=== PATIENT | female | born 1935 | race Caucasian/White ===

== ENCOUNTER → 2020-10-17 15:09 | Outpatient (CLI) | payer MEDICARE, SELFPAY ==
[2019-08-09 10:27] VITALS: BMI 38.4
--- NOTE | 2020-10-17 15:44 | MRI_ITS ---
STUDY: MRI BRAIN WITH AND WITHOUT CONTRAST REASON FOR EXAM: Female, 85 years old. DIPLOPIA TECHNIQUE: Standardized multiplanar fat and water weighted pulse sequences were obtained. IV 17CC DOTAREM was administered for the contrast portion of the examination. COMPARISON: None. FINDINGS: Brain parenchyma is normal with mild expected age-related white matter gliotic change. Orbital contents are normal. Suprasellar cistern is clear. Sella turcica has an empty appearance with a normal gland flattened along the floor of the sella, a finding of limited clinical significance on the current exam and without associated findings. Prepontine cistern is clear. MRI/Brain W/WO Contrast IMPRESSION: 1. Normal brain. 2. Normal orbits. Electronically Signed: Taylor Pak MD at 19:45 EDT Tel , Service support ,
[2020-10-17 16:00] LABS: CREATININE FINGERSTICK < 0.6 mg/dL (0.55-1.02); EGFR FINGERSTICK > 60.0000 mL/min (>60)
== END ==
PROVIDERS: PCP Nurse Practitioner Primary Care; Referring Provider Ophthalmology; Visit Provider Ophthalmology
DX: H53.2 Diplopia (principal)
CPT/HCPCS: 70553; A9575

== ENCOUNTER 2021-07-04 09:09 | Outpatient (CLI) | payer MEDICARE, SELFPAY ==
--- NOTE | 2021-07-04 09:12 | NM_ITS ---
CLINICAL: 85-year-old female with reported history of painful apparent bilateral knee arthroplasties. LIMITED 99m Tc MDP THREE PHASE BONE SCINTIGRAPHY COMPARISON: None available FINDINGS: Following the intravenous administration of 27.0 mCi of 99m Tc MDP, three-phase bone acquisitions of the knee articulations reveal: 1. The flow and immediate static blood pool acquisitions demonstrate relatively symmetric-normal arterial phase distribution of the radiopharmaceutical. Venous hyperemia is demonstrated in the medial-lateral tibial and femoral components of the symptomatic bilateral knee prostheses. 2. Delayed images depict persistent increased tracer uptake noted in the medial-lateral femoral and tibial components of the painful right and left knee arthroplasties corresponding to the blood pool changes. 3. Facilitated uptake is noted in the patellofemoral compartments of both knees. 4. The remaining limited skeletal structures are scintigraphically unremarkable. NM/Bone Scan Three Phase IMPRESSION: 1. The increase in radiopharmaceutical concentration identified in the femoral and tibial components of the painful bilateral knee prostheses is consistent with a high likelihood of loosening in the setting of operative intervention > 2 years prior to the current presentation. (Lynne et al, Radiology 161:509, 1986 Palestro et al, Applied Radiology 35: 11, 2006). If an infectious etiology is a diagnostic consideration, correlation with labeled leukocyte imaging is recommended. 2. 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 Electronically Signed: Gigi Richardson DO at 8:02 EDT ,
== END 2021-07-04 23:59 | disposition home or self-care (01) ==
LOC: NM 09:11
PROVIDERS: PCP Nurse Practitioner Primary Care; Referring Provider Specialist; Visit Provider Specialist
DX: Z96.653 Presence of artificial knee joint, bilateral (principal)
CPT/HCPCS: 78315; A9503

== ENCOUNTER → 2024-11-23 | Outpatient (CLI) | payer MEDICARE, SELFPAY ==
--- NOTE | 2024-11-23 14:13 | ST.MBS ---
Modified Barium Swallow Patient Information Study Date: 11/23/24 Study Time: 13:00 Direct Billable Minutes: 120 Total Minutes procedure & reportin Diagnosis: Vomiting R11.10; Esophageal dysmotility K22.4 Referring Physician: Liz Coronado Reason for Referral: Pt presented to [facility] to establish care for management of swallowing difficulty, esophageal dysmotility, and regurgitation of food. ?History of last EGD with Dr. Saldana, done on 06.13.2018. 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 Random tissue biopsies taken. Pathology demonstrated squamous esophageal mucosa without significant microscopic pathology.? Patient reported increased difficulty w/ chicken (white meat) and bun. Pt was recommended for omeprazole, MBSS, and EGD. Pt and daughter, Danielle, provided additional details regarding swallowing difficulty. Pt reports vomiting solids, undigested. If using liquid wash, she feels the liquids ?sit on top? of the foods, and they are vomited, as well. Swallowing difficulty occurs every few days. Pt has never choked, but feels fearful of choking. Pt avoids eating chicken, pulled pork, and bread. 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 Hx of PNA >10 years ago. Pt follows w/ Dr. Delaney for CLL (annually per pt). Medical History: PMH: Hypogammaglobulinemia, HTN, DM, CLL, Esophageal dysmotility, Regurgitation of food ? See EMR for full PMH. Current Diet Ordered: Soft solids / Thin liquids Dentition: WNL and Natural Teeth Mental Status: WNL Respiratory Status: Oxygenating on Room Air Penetration-Aspiration Scale Penetration-Aspiration Scale: OBJECTIVE ASSESSMENT OF SWALLOW FUNCTION (QUANTITATIVE ? PER TRIAL): PENETRATION / ASPIRATION SCALE (LIND): 1 = does not enter airway 2 = enters airway/above vocal folds/ejected 3 = enters airway/above vocal folds/not ejected 4 = enters airway/contacts vocal folds/ejected 5 = enters airway/contacts vocal folds/not ejected 6 = enters airway/below vocal folds/ejected 7 = enters airway/below vocal folds/not ejected despite effort 8 = enters airway/below vocal folds/no effort VIDEOFLOROSCOPIC SCALE SCORE (LIND): Grade I = aspiration of material that has penetrated into the laryngeal vestibule, intact cough reflex Grade II = aspiration < 10 % of the bolus, intact cough reflex Grade III = aspiration of < 10 % of the bolus, reduced cough reflex or aspiration of > 10 % of the bolus, intact cough reflex Grade IV = aspiration of > 10 % of the bolus, reduced cough reflex Penetration-Aspiration Scale Score Thin Liquid via teaspoon: Result: 1= does not enter airway Thin Liquid via teaspoon Trial 2: Result: 1= does not enter airway Thin Liquid via large single sip: cup: Result: 1= does not enter airway Thin Liquid via sequential sips: cup: Result: 7= enters airways/below vocal folds/not ejected despite effort Comment: Esophageal screen - Trial mostly cleared, minimal barium in lower esophagus. [place] Thick Liquid via large single sip: cup: Result: 1= does not enter airway Pudding via teaspoon: Result: 1= does not enter airway Comment: Esophageal screen - Retention in the middle and lower esophagus w/ lower esophagus appearing very narrow. Thin Liquid via single sip: straw: Result: 1= does not enter airway 1/2 Cookie: Result: 1= does not enter airway Comment: Cued pt for cough and re-swallow to clear trace residues remaining in the laryngeal vestibule and on the vocal folds from the sequential thin cup trial. Thin Liquid via single sip: straw Trial 2: Result: 2= enter airway/above vocal folds/ejected Thin Liquid via single sip: straw Effortful swallow: Result: 1= does not enter airway Oral Phase Labial Seal: No Labial Escape Tongue Control During Bolus Hold: Posterior escape of less than half of bolus Bolus Preparation/Mastication: Timely and efficient chewing and mashing Bolus Transport/Lingual Motion: Delayed initiation of tongue motion Oral Residue: Residue collection on oral structures Pharyngeal Phase Initiation of Pharyngeal Swallow: Bolus head in pyriforms (vocal folds w/ sequential thin) Soft Palate Elevation: Trace column of contrast/air between soft palate and pharyngeal wall Laryngeal Elevation: Partial superior movement thyroid cart/partial apprx aryt-epig petiole Anterior Hyoid Excursion: Partial anterior movement Epiglottic Movement: Complete inversion Laryngeal Vestibule Closure at Height of Swallow: Incomplete; narrow column of air/contrast in laryngeal vestibule Pharyngeal Stripping Wave: Present - diminished Pharyngoesophageal Segment Opening: Parital distension and partial duration; parital obstruction of flow (trace retention of pudding in the UES) Tongue Base Retraction: Narrow column of contrast between tongue base & post. pharyngeal wall Pharyngeal Residue: Collection of residue within or on pharyngeal structures Esophageal Phase Esophageal Clearance: Esophageal retention w/ retrograde flow below pharyngoesophageal seg. Diagnosis/Impression Diagnosis: Esophageal dysphagia R13.14; Mild-moderate oropharyngeal dysphagia R13.12 MBS Impressions: The oral phase is primarily marked by... -Decreased bolus control noted w/ posterior loss of >1/2 of sequential sips of thin liquids to the pyriform sinuses. The pharyngeal phase is primarily marked by... -Delayed swallow onset. -Decreased airway closure due to decreased laryngeal elevation and anterior hyoid excursion resulting in aspiration of thin liquids via cup w/ delayed, reflexive cough. -Mildly decreased TB retraction and pharyngeal stripping wave w/ trace-mild pharyngeal residues. The esophageal phase is primarily marked by... -Retention of pudding in the middle and lower esophagus w/ lower esophagus appearing very narrow. Liquid wash did not fully clear barium. Continued retention of barium in the middle and lower esophagus w/ retrograde flow. -Retention of cookie in the middle and lower esophagus. Liquid wash resulted in retrograde flow to the upper esophagus. After second liquid wash, retention in the middle and lower esophagus. Recommendations Diet: Soft and Bite Sized Textures and Thin Liquids Compensatory Strategies: Small Bites, Small Sips (Sips 1 at a time, Hard swallows), Slow Rate, Alternate bites/solids and sips/liquids (1-2 sips after each bite) and Sitting upright (During and 60min after meals) Recommend Repeat Modified Barium Swallow: TBD Need for Skilled Speech Therapy Services: Yes Comment: -Train the patient in use of strategies to decrease risk for aspiration and reflux aspiration. -Ongoing assessment of diet tolerance of recommended textures. Trial easy to chew and regular textures after EGD w/ [facility] to consider diet advancement. -Train the patient in oropharyngeal exercise program to improve bolus control, airway closure, swallow onset, and pharyngeal motility (Becky, Effortful, Cristy, lingual resistance). Recommended Referrals: GI Consult (Continue to follow w/ GI for management of esophageal dysmotility.) Education Completed: 1. Described result of evaluation., 2. Pt understands evaluation & agrees with goals and treatment plan., 4. Family/caregivers understand evaluation & agree w/ goals & tx plan. and 7. Pt requires further education on strategies & risks. Status Active ST Patient: Active Contact Information [facility] Speech Therapy:: Tricia Florian M.A. [facility] Speech-Language Pathologist [facility] [address] [place] [address] [email or web address] [phone]
--- OUTSIDE RECORDS SUMMARY | 2024-11-23 18:21 | XMS RPT_ITS | CCD ---
Author Organization [facility] Care Team Providers Care Solids Control Technician Name Role Phone KIKE USER SUPPORT SPECIALIST-CHIEF PRIVACY OFFICER, QUOC S Primary Care Physicia n KHURRAM HEBERT MD Attending Unavailable KIKE USER SUPPORT SPECIALIST-CHIEF PRIVACY OFFICER, QUOC S Primary Care Unava angeles HEBERT MD, KHURRAM Phillips Attending Unavailable KIKE USER SUPPORT SPECIALIST-CHIEF PRIVACY OFFICER, QUOC S Primary Care Unava ilKHURRAM Espinal MD Attending Unavailable KIKE USER SUPPORT SPECIALIST-CHIEF PRIVACY OFFICER, QUOC S Primary Care Unava ilable KIKE USER SUPPORT SPECIALIST-CHIEF PRIVACY OFFICER, QUOC S Primary Care Unava ilable KIKE USER SUPPORT SPECIALIST-CHIEF PRIVACY OFFICER, QUOC S Attending Unava ilable KIKE USER SUPPORT SPECIALIST-CHIEF PRIVACY OFFICER, QUOC S Primary Care Unava ilable KIKE USER SUPPORT SPECIALIST-CHIEF PRIVACY OFFICER, QUOC S Attending Unava ilKHURRAM Espinal MD Attending Unavailable KIKE USER SUPPORT SPECIALIST-CHIEF PRIVACY OFFICER, QUOC S Primary Care Unava ilfidelia HEBERT MD, KHURRAM Phillips Attending Unavailable KIKE USER SUPPORT SPECIALIST-CHIEF PRIVACY OFFICER, QUOC S Primary Care Unava ilable KIKE USER SUPPORT SPECIALIST-CHIEF PRIVACY OFFICER, QUOC S Primary Care Unava RYLAND Jay MD Attending Unavailable MACO USER SUPPORT SPECIALIST-CHIEF PRIVACY OFFICER, SKYLA Attending Unavailab le KIKE USER SUPPORT SPECIALIST-CHIEF PRIVACY OFFICER, QUOC S Primary Care Unava ilable KIKE USER SUPPORT SPECIALIST-CHIEF PRIVACY OFFICER, QUOC S Primary Care Unava ilBERLIN Thompson MD Attending Unavailable KIKE USER SUPPORT SPECIALIST-CHIEF PRIVACY OFFICER, QUOC S Primary Care Unava ilable KIKE USER SUPPORT SPECIALIST-CHIEF PRIVACY OFFICER, QUOC S Attending Unava ilable KIKE USER SUPPORT SPECIALIST-CHIEF PRIVACY OFFICER, QUOC S Primary Care Unava ilable KIKE USER SUPPORT SPECIALIST-CHIEF PRIVACY OFFICER, QUOC S Attending Unava ilable KIKE USER SUPPORT SPECIALIST-CHIEF PRIVACY OFFICER, QUOC S Attending Unava ilable KIKE USER SUPPORT SPECIALIST-CHIEF PRIVACY OFFICER, QUOC S Primary Care Unava ilable ZAKARI MD, REGINA Rashid Attending Unavailable [facility], QUOC S Primary Care Shekhar COLEY MD, REGINA Rashid Attending Unavailable [facility], [facility] S Primary Care Shekhar STOUT MD, RYLAND Attending Unavailable [facility], [facility] Primary Care Unajimenez Stokes COMMERCIAL ENERGY AUDITOR-C, Quoc Primary Care Provider [phone] Kike COMMERCIAL ENERGY AUDITOR-C, Quoc Referring Provider [phone] Cliff COMMERCIAL ENERGY AUDITOR-C, Liz Attending Provider Kike COMMERCIAL ENERGY AUDITOR, Quoc Primary Care Unavailable Kike COMMERCIAL ENERGY AUDITOR, Quoc Referring Unavailable Liz Coronado Attending Unavailable Ty, Oscar Attending Unavailable Kike COMMERCIAL ENERGY AUDITOR, [facility] Primary Care Unavailable Kike COMMERCIAL ENERGY AUDITOR, Quoc Primary Care Unavailable Liz Coronado Attending Unavailable Liz Coronado Referring Unavailable Allergies Allergy Classification Reported Allergen(s) Allergy Type Date of Onset Reaction(s) Facility (20 sources) Acetaminophen / HYDROcodone; Translations: [acetaminophen-hy drocodone] Drug Allergy Nausea (finding), Dizziness (finding) [facility] (16 sources) Penicillin; Translations: [penicillin] Drug Allergy [facility] (5 sources) predniSONE; Translations: [prednisone] Drug Allergy Unknown [facility] (20 sources) quinapril; Translations: [quinapril] Drug Allergy Unknown [facility] (20 sources) rosuvastatin; Translations: [rosuvastatin] Drug Allergy cramping, Unknown [facility] Comment on above: cramping, made her f eel like a zombie (1 source) Penicillins Propensity to adverse reactions 5 Pain in joints [facility] (1 source) Penicillins Drug allergy (disorder) 5 [facility] Repository Medications Current Medications Medication Drug Class(es) Dates Sig (Normalized) Sig (Original) acetaminophen 500 mg oral tablet (15 sources) Start: 10-21-2018 acetaminophen 500 mg oral tablet Dose : 500 mg = 1 tab(s), Oral, PRN for pain, 0 Refill(s) Start Date: 10/21/18 Status: Ordered Repeat number: 1 ascorbic acid 113 mg / beta carotene 7160 mg / cuprous oxide 0.4 mg / dl-alpha tocopheryl acetate 100 unt / zinc oxide 17.4 mg oral tablet (1 source) Vitamin C Start: 06-22-2018 Vitamins A,C,J-Trdc-Tgciwo (Preservision Areds Tablet) 1 EACH tablet Active June 22, 2018 12:00am aspirin 81 mg delayed release oral tablet (17 sources) Platelet Aggregation Inhibitor, Nonsteroidal Anti-inflammatory Drug Start: 08-09-2020 aspirin 81 mg oral delayed release tablet Dose : 81 mg = 1 tab(s), Oral, Daily, # 30 tab(s), 0 Refill(s), Pharmacy: [facility], 148, cm, 08/09/20 9:03:00 EDT, Height, kg, 08/09/20 9:03:00 EDT, Dosing Weight Start Date: 08/09/20 Status: Ordered Quantity: 30.0 Unit: tab(s) Repeat number: 1 Start: 08-09-2020 aspirin 81 mg oral delayed release tablet Dose : 81 mg = 1 tab(s), Oral, Daily, # 30 tab(s), 0 Refill(s), Pharmacy: [facility], 148, cm, 08/09/20 9:03:00 EDT, Height, kg, 08/09/20 9:03:00 EDT, Dosing Weight Start Date: 08/09/20 Status: Ordered Start: 07-01-2016 take 81 mg by mouth once daily Aspir-Low Active 81 mg PO DAILY July 01, 2016 12:00am atorvastatin 10 mg oral tablet (17 sources) HMG-CoA Reductase Inhibitor Start: 08-01-2024 End: 07-27-2025 atorvastatin 10 mg oral tablet Dose : 10 mg = 1 tab(s), Oral, qDay, # 90 tab(s), 3 Refill(s), Pharmacy: [facility], 149, cm, 07/13/24 11:17:00 EDT, Height, kg, 07/13/24 11:17:00 EDT, Dosing Weight Start Date: 08/01/24 Stop Date: 07/27/25 Status: Ordered Quantity: 90.0 Unit: tab(s) Repeat number: 4 Start: 03-24-2022 End: 04-21-2024 atorvastatin 10 mg oral tabl et Dose : 10 mg = 1 tab(s), Oral, qDay, # 90 tab(s), 3 Refill(s), Pharmacy: [facility], 155, cm, 02/22/23 13:15:00 EST, Height, kg, 02/22/23 13:15:00 EST, Dosing Weight Start Date: 04/27/23 Stop Date: 04/21/24 Status: Ordered Quantity: 90.0 Unit: tab(s) Repeat number: 4 Start: 02-19-2021 End: 02-14-2022 atorvastatin 10 mg oral tabl et Dose : 10 mg = 1 tab(s), Oral, qDay, # 90 tab(s), 3 Refill(s), Pharmacy: [facility], 152.4, cm, 02/07/21 9:05:00 EDT, Height, kg, 02/07/21 9:05:00 EDT, Dosing Weight Start Date: 02/19/21 Stop Date: 02/14/22 Status: Ordered Biotin (15 sources) Start: 06-20-2024 Biotin 5000 mc g oral capsule 0 Refill(s) Start Date: 06/20/24 Status: Ordered Repeat number: 1 Start: 05-10-2020 Biotin 5000 mc g oral capsule Dose : 5,000 mcg = 1 cap(s), Oral, Daily, 0 Refill(s) Start Date: 05/10/20 Status: Ordered Repeat number: 1 Start: 05-10-2020 Biotin 5000 mc g oral capsule Dose : 5,000 mcg = 1 cap(s), Oral, Daily, 0 Refill(s) Start Date: 05/10/20 Status: Ordered Calcium (16 sources) Phosphate Binder, Calcium Start: 03-27-2009 take 1 tablet by mouth once daily Calcium 600 +D Dose = 2 tab(s), PO, Daily, 0 Refill(s), current med (Hx) Start Date: 03/27/09 Status: Ordered Repeat number: 1 Start: 03-27-2009 take 1 tablet by cayden th once daily Calcium 600 +D Dose = 2 tab(s), PO, Daily, 0 Refill(s), current med (Hx) Start Date: 03/27/09 Status: Ordered Start: 03-27-2009 take 2 tablets by mo uth once daily Calcium 600 +D 2 tab(s), PO, Daily Start Date: 03/27/09 Status: Ordered Calcium Carb/Vitamin D (1 source) Start: 07-01-2016 Calcium Carb/V itamin D Active 2 {tbl} PO DAILY July 01, 2016 12:00am furosemide 20 mg oral tablet (17 sources) Loop Diuretic Start: 08-01-2024 End: 07-27-2025 furosemide 20 mg oral tablet Dose : 20 mg = 1 tab(s), Oral, qDay, # 90 tab(s), 3 Refill(s), Pharmacy: [facility], 149, cm, 07/13/24 11:17:00 EDT, Height, kg, 07/13/24 11:17:00 EDT, Dosing Weight Start Date: 08/01/24 Stop Date: 07/27/25 Status: Ordered Quantity: 90.0 Unit: tab(s) Repeat number: 4 Start: 04-27-2023 End: 04-21-2024 furosemide 20 mg oral tablet Dose : 20 mg = 1 tab(s), Oral, qDay, # 90 tab(s), 3 Refill(s), Pharmacy: [facility], 155, cm, 02/22/23 13:15:00 EST, Height, kg, 02/22/23 13:15:00 EST, Dosing Weight Start Date: 04/27/23 Stop Date: 04/21/24 Status: Ordered Quantity: 90.0 Unit: tab(s) Repeat number: 4 Start: 03-24-2022 End: 03-19-2023 furosemide 20 mg oral tablet Dose : 20 mg = 1 tab(s), Oral, qDay, # 90 tab(s), 3 Refill(s), Pharmacy: [facility], 152.4, cm, 12/02/21 9:26:00 EDT, Height, kg, 12/02/21 9:26:00 EDT, Dosing Weight Start Date: 03/24/22 Stop Date: 03/19/23 Status: Ordered Start: 07-01-2016 End: 02-14-2022 furosemide 20 mg oral tablet Dose : 20 mg = 1 tab(s), Oral, qDay, # 90 tab(s), 3 Refill(s), Pharmacy: [facility], 152.4, cm, 02/07/21 9:05:00 EDT, Height, kg, 02/07/21 9:05:00 EDT, Dosing Weight Start Date: 02/19/21 Stop Date: 02/14/22 Status: Ordered Ibuprofen (15 sources) Nonsteroidal Anti-inflammatory Drug Start: 06-20-2024 ibuprofen 0 Refil l(s) Start Date: 06/20/24 Status: Ordered Repeat number: 1 Start: 10-21-2018 ibuprofen 200 mg oral tablet Dose : 200 mg = 1 tab(s), Oral, q6hr, PRN as needed for pain, 0 Refill(s) Start Date: 10/21/18 Status: Ordered Repeat number: 1 lisinopril 5 mg oral tablet (2 sources) Angiotensin Converting Enzyme Inhibitor Start: 07-01-2016 End: 08-04-2022 lisinopril 5 mg oral tablet Dose : 5 mg = 1 tab(s), Oral, qDay, # 90 tab(s), 3 Refill(s), Pharmacy: [facility], 148, cm, 08/09/20 9:03:00 EDT, Height, kg, 08/09/20 9:03:00 EDT, Dosing Weight Start Date: 12/25/20 Stop Date: 12/20/21 Status: Ordered meclizine hydrochloride 25 mg oral tablet (6 sources) Antiemetic Start: 09-06-2023 meclizine 25 m g oral tablet Dose : 25 mg = 1 tab(s), Oral, BID, PRN for dizziness, # 60 tab(s), 0 Refill(s) Start Date: 09/06/23 Status: Ordered Quantity: 60.0 Unit: tab(s) Repeat number: 1 metoprolol tartrate 25 mg oral tablet (10 sources) beta-Adrenergic Felicia Start: 09-22-2022 Metoprolol Succinate ER 25 mg oral TABLET extended release Dose : 12.5 mg = 0.5 tab(s), Oral, qDay, 0 Refill(s) Start Date: 09/22/22 Status: Ordered Start: 11-19-2021 Toprol-XL 25 m g oral tablet, extended release Dose : 25 mg = 1 tab(s), Oral, qDay, Do not crush or chew (controlled release), # 90 tab(s), 1 Refill(s), Pharmacy: [facility], 152.4, cm, 11/19/21 10:43:00 EDT, Height, kg, 11/19/21 10:43:00 EDT, Dosing Weight Start Date: 11/19/21 Status: Ordered Start: 09-19-2021 Toprol-XL 25 m g oral tablet, extended release Dose : 12.5 mg = 0.5 tab(s), Oral, BID, Do not crush or chew (controlled release), # 90 tab(s), 6 Refill(s), Pharmacy: [facility], 152.4, cm, 09/19/21 11:18:00 EDT, Height Start Date: 09/19/21 Status: Ordered Metoprolol Kaufman-Hydrochlorothiaz 50-12.5 mg tablet extended release 24 hr (1 source) Start: 08-04-2022 Metoprolol Kaufman-Hydrochlorothiaz 50-12.5 mg tablet extended release 24 hr Active {tbl} PO August 04, 2022 12:00am omeprazole 20 mg delayed release oral capsule (1 source) Proton Pump Inhibitor Start: 11-13-2024 Omeprazole 20 mg capsule,delayed release(DR/EC) Active 20 mg PO TWICE A DAY 60 November 13, 2024 12:00am Take 30minutes before eating breakfast and supper. ondansetron 4 mg oral tablet (7 sources) Serotonin-3 Receptor Antagonist Start: 12-15-2022 ondansetron 4 mg oral tablet Dose : 4 mg = 1 tab(s), Oral, q8h, PRN Nausea/Vomiting, # 8 tab(s), 0 Refill(s), Pharmacy: [facility], 147.5, cm, 12/15/22 10:00:00 EDT, Height, kg, 12/15/22 10:00:00 EDT, Dosing Weight Start Date: 12/15/22 Status: Ordered Quantity: 8.0 Unit: tab(s) Repeat number: 1 oxyCODONE hydrochloride 5 mg oral tablet (1 source) Opioid Agonist Start: 09-06-2023 End: 10-06-2023 oxyCODONE 5 mg oral tablet ( IMMEDIATE release ) Dose : 5 mg = 1 tab(s), Oral, q6h, PRN for pain, X 30 day(s), # 120 tab(s), 0 Refill(s), 10/06/23 1:15:00 PM EDT, Pharmacy: [facility], Chronic back pain Osteoarthritis, 149, cm, 09/06/23 12:45:00 EDT, Height, 85.4, kg, 09/06/23 12:45:00 EDT, Dosing Weight Start Date: 09/06/23 Stop Date: 10/06/23 Status: Ordered microencapsulated potassium chloride 20 meq extended release oral tablet (16 sources) Start: 08-04-2022 take 1 tablet by mouth once daily Potassium Chloride 20 mEq tablet,ER particles/crystals Active 20 meq PO DAILY August 04, 2022 12:00am Start: 11-19-2021 potassium chlo ride 10 mEq oral capsule, extended release Dose : 10 mEq = 1 cap(s), Oral, BID, take with food., # 60 cap(s), 6 Refill(s), Pharmacy: [facility], 152.4, cm, 11/19/21 10:43:00 EDT, Height Start Date: 11/19/21 Status: Ordered Quantity: 60.0 Unit: cap(s) Repeat number: 7 Start: 09-19-2021 potassium chlo ride 20 mEq oral tablet, extended release Dose : 20 mEq = 1 tab(s), Oral, qDay, Take with food, # 30 tab(s), 6 Refill(s), Pharmacy: [facility], 152.4, cm, 09/19/21 11:18:00 EDT, Height Start Date: 09/19/21 Status: Ordered traMADol hydrochloride 50 mg oral tablet (10 sources) Opioid Agonist Start: 11-30-2022 End: 02-28-2023 traMADol 50 mg oral tablet Dose : 50 mg = 1 tab(s), Oral, q8h, PRN for pain, X 30 day(s), # 90 tab(s), 2 Refill(s), 02/28/23 12:31:00 PM EST, Pharmacy: [facility], Chronic back pain Lumbar disc herniation, 152, cm, 11/30/22 11:57:00 EDT, Height, 83, kg, 11/30/22 11:57:00 EDT, Dosing Weight Start Date: 11/30/22 Stop Date: 02/28/23 Status: Ordered Start: 11-30-2022 traMADol HCL 5 0 MG TABS traMADol HCL 50 MG TABS, 0 Refill(s), 88 Start Date: 11/30/22 Status: Ordered Repeat number: 1 Start: 11-30-2022 traMADol HCL 5 0 MG TABS traMADol HCL 50 MG TABS, 0 Refill(s), 88 Start Date: 11/30/22 Status: Ordered Completed/Discontinued Medications Medication Drug Class(es) Dates Sig (Normalized) Sig (Original) 1 ml denosumab 60 mg/ml prefilled syringe (15 sources) RANK Ligand Inhibitor Start: 09-19-2024 Prolia 60 mg/mL subcutaneous solution Dose : 60 mg = 1 mL, Subcutaneous, q6mo, diagnosis: Osteoporosis (M81.0), # 1 EA, 1 Refill(s), Osteoporosis Start Date: 09/19/24 Status: Ordered Quantity: 1.0 Unit: EA Repeat number: 2 Indications: Age-related osteoporosis without current pathological fracture; Start: 02-24-2024 Prolia 60 mg/m L subcutaneous solution Dose : 60 mg = 1 mL, Subcutaneous, q6mo, diagnosis: Osteoporosis (M81.0), # 1 EA, 1 Refill(s), Osteoporosis Start Date: 02/24/24 Status: Ordered Quantity: 1.0 Unit: EA Repeat number: 2 Indication: Age-related osteoporosis without current pathological fracture Start: 09-01-2023 Prolia 60 mg/m L subcutaneous solution Dose : 60 mg = 1 mL, Subcutaneous, q6mo, diagnosis: Osteoporosis (M81.0), # 1 EA, 1 Refill(s), Osteoporosis Start Date: 09/01/23 Status: Ordered Start: 03-10-2023 Prolia 60 mg/m L subcutaneous solution Dose : 60 mg = 1 mL, Subcutaneous, q6mo, diagnosis: Osteoporosis (M81.0), # 1 EA, 1 Refill(s), Osteoporosis Start Date: 03/10/23 Status: Ordered Start: 08-27-2022 Prolia 60 mg/m L subcutaneous solution Dose : 60 mg = 1 mL, Subcutaneous, q6mo, # 1 mL, 1 Refill(s) Start Date: 08/27/22 Status: Ordered Start: 08-20-2021 Prolia 60 mg/m L subcutaneous solution Dose : 60 mg = 1 mL, Subcutaneous, q6mo, # 1 mL, 1 Refill(s) Start Date: 08/20/21 Status: Ordered gabapentin 300 mg oral capsule (2 sources) Anti-epileptic Agent Start: 09-22-2022 gabapenti n 300 mg oral capsule Dose : 300 mg = 1 cap(s), Oral, BID, 0 Refill(s), 90.7 Start Date: 09/22/22 Status: Ordered isosorbide dinitrate 5 mg oral tablet (1 source) Nitrate Vasodilator Start: 06-22-2018 End: 08-04-2022 Isosorbide Dinitrate (Isordil Titradose) 5 MG tablet Discontinued 2.5 mg PO TWICE A DAY June 22, 2018 12:00am August 04, 2022 2:02pm Prolia 60 mg/mL subcutaneous solution (1 source) Start: 02-20-2021 Prolia 60 mg/m L subcutaneous solution Dose : 60 mg = 1 mL, Subcutaneous, q6mo, # 1 mL, 1 Refill(s) Start Date: 02/20/21 Status: Ordered Problems Problem Classification Problem Date Documented Da te Episodic/Chronic Cardiac dysrhythmias (16 sources) Palpitations 01-08-2020 Episodic Conditions associated with dizziness or vertigo (12 sources) Benign paroxysmal positional vertigo; Translations: [Dizziness and giddiness] 04-09-2022 Episodic Congestive heart failure; nonhypertensive (12 sources) Heart failure with normal ejection fraction 11-19-2021 Chronic Diabetes mellitus without complication (16 sources) Type 2 diabetes mellitus 01-08-2020 Chronic Comment on above: Hasnt taken DM meds for 5 years Disorders of lipid metabolism (20 sources) Mixed hyperlipidemia; Translations: [Hyperlipidemia] 02-01-2019 Chronic Comment on above: Last LDL 111 Esophageal disorders (19 sources) Diffuse spasm of esophagus; Translations: [Esophageal dysmotility] Onset: 11-13-2024 02-01-2019 Chronic Essential hypertension (16 sources) Benign essential hypertension 02-01-2019 Chronic Heart valve disorders (16 sources) Aortic valve stenosis 08-09-2020 Chronic Leukemias (20 sources) Chronic lymphoid leukemia, disease; Translations: [Chronic lymphocytic leukemia of B-cell type not having achieved remission] Onset: 11-13-2024 02-01-2019 Chronic Comment on above: Lymphocytosis-asympt omatic.Clinically stable. Nausea and vomiting (3 sources) Regurgitation of food; Translations: [Vomiting, unspecified] Onset: 11-13-2024 11-13-2024 Episodic Osteoarthritis (12 sources) Osteoarthritis 12-02-2021 Chronic Osteoporosis (16 sources) Osteoporosis 12-14-2019 Chronic Other and ill-defined heart disease (16 sources) Left ventricular hypertrophy 05-10-2020 Chronic Other bone disease and musculoskeletal deformities (16 sources) Disorder of bone 02-02-2019 Episodic Other circulatory disease (16 sources) Vascular insufficiency 01-08-2020 Episodic Other circulatory disease (1 source) Ecchymosis 06-26-2024 Episodic Other connective tissue disease (12 sources) History of total knee arthroplasty 12-02-2021 Chronic Other lower respiratory disease (16 sources) Dyspnea on exertion 05-10-2020 Episodic Other lower respiratory disease (11 sources) Cough 04-28-2022 Episodic Other nervous system disorders (11 sources) Impairment of balance 04-09-2022 Episodic Other nervous system disorders (7 sources) Tremor 05-26-2023 Episodic Other nervous system disorders (5 sources) Neurogenic claudication 01-07-2024 Episodic Other non-traumatic joint disorders (9 sources) Hip pain 12-15-2022 Episodic Other nutritional; endocrine; and metabolic disorders (16 sources) Obesity 01-08-2020 Chronic Other nutritional; endocrine; and metabolic disorders (16 sources) Overweight 01-08-2020 Episodic Other screening for suspected conditions (not mental disorders or infectious disease) (16 sources) Cardiovascular stress test abnormal 05-22-2020 Episodic Other skin disorders (1 source) Eruption 07-13-2024 Episodic Other skin disorders (1 source) Inflammatory dermatosis 06-26-2024 Episodic Residual codes; unclassified (4 sources) Preoperative state 05-10-2020 Episodic Residual codes; unclassified (11 sources) Chronic back pain 09-22-2022 Episodic Spondylosis; intervertebral disc disorders; other back problems (20 sources) Prolapsed lumbar intervertebral disc; Translations: [Spondylosis] Onset: 01-07-2024 09-22-2022 Chronic Spondylosis; intervertebral disc disorders; other back problems (20 sources) Low back pain; Translations: [Spinal stenosis] Onset: 11-09-2022 04-02-2020 Episodic Unclassified (16 sources) Patient encounter status 12-31-2020 Results Test Name Value Interpretation Reference Range Facility Gastroenterology Visit Repor ton 11-13-2024 Gastroenterology Visit Report [facility] [address] [place] [address] OFFICE VISIT Date of Service: 11/13/24 MR#: [id number] Acct: [id number] Name: POORNIMALORI ANGUS Rep #: [id number] : 1935 Provider: EMILIA mckeon Age/Sex: 89/F Location: [facility] Status: Signed Intake Vital Signs 08/03/23 14:02 11/10/24 07:13 Height 5 ft 5 ft Intake Visit Reasons: DYSPHAGIA -PREVIOUSLY HAD STRETCHING DONE Chief Complaint: Difficulty swallowing Allergies Penicillins (PCN) Adverse Reaction (Intermediate, Verified 11/13/24 14:26) Pain in joints Medications ???Medication ???Instructions ???Recorded ???Confirmed ???Type Aspir-Low 81 mg PO DAILY 07/01/16 11/13/24 H istory Calcium Carb/Vitamin D 2 tab PO DAILY 07/01/16 11/13/24 H istory furosemide 20 mg tablet 20 mg PO DAILY 07/01/16 11/13/24 H istory vitamins A,C,G-tzyg-ajceqb 2,148 06/22/18 11/13/24 History mcg-113 mg-45 mg-17.4 mg tablet (PreserVision AREDS) atorvastatin 10 mg tablet 10 mg PO DAILY 08/04/22 11/13/24 H istory metoprolol succ 50 tab PO 08/04/22 11/13/24 History mg-hydrochlorothiazide 12.5 mg tablet,ext.rel 24 hr potassium chloride 20 mEq 20 meq PO DAILY 08/04/22 11/13/24 History tablet,extended release(part/cryst) omeprazole 20 mg capsule,delayed 20 mg PO BID #60 caps 11/13/2402/27 Rx release Have you fallen in the past year?: No PFSH Medical History Hypogammaglobulinemia Hypertension Diabetes mellitus Surgical History History of pituitary surgery History of back surgery History of bilateral knee replacement Family History Mother Hypertension Heart disease Father Heart disease Diabetes Social History Smoking Status: Never smoker HPI HPI Chief Complaint: Difficulty swallowing Details: LORI POORNIMA, is a 89 F who presents to the office today for establishment with [facility] regarding concerns for difficulty swallowing. She presents for exam with her . History of last EGD with Dr. Saldana, done on 06.13.2018. 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 Random tissue biopsies taken. Pathology demonstrated squamous esophageal mucosa without significant microscopic pathology. She reports daily morning phlegm and often spits up portions of her food during meals. 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 Her states that he was looking up difficulty swallowing in relation to CLL and has found on multiple sites that there was a correlation to the presence of white blood cells in the esophageal tissue that can cause increased difficulty with swallowing. She has to take her larger pills stuffed in a piece of banana to help it go down. She states that she struggles with dry white meat from chicken and bread buns as well. She denies difficulties with her bowels, has daily complete BMs without straining. ROS Const Constitutional: No fatigue, fever(s) or weight change ENT ENT: Positive for difficulty swallowing Gastro GI: Positive for difficulty swallowing; No abdominal pain, belching, bloating, change in bowel habits, change in stool character, coffee ground emesis, constipation, cramping, diarrhea, heartburn, feeling full early, excessive flatus, incontinent of stools, Vomiting blood/hematemesis, Blood in stool, loose stools, Black,tarry stools, nausea/dyspepsia, pain with swallowing, vomiting or other Musc Musculoskeletal: No joint pain Skin Skin: No yellowing of the eye or itchy eyes Psych Psychiatric: No anxiety and No depression Endo Endocrine: No fatigue or weight change Aller/Imm Allergy/Immunologic: No itchy eyes Wm/Lymp Hematologic/Lymphatic: No easy bleeding or easy bruising Exam Const General: cooperative, healthy appearing, comfortable and no acute distress Nutritional Appearance: overweight Orientation: alert and oriented x3 HENMT Head: normal to inspection Ears: hearing grossly normal bilaterally Eyes General: appearance normal, both eyes and all related structures Sclera: sclerae normal Neck Neck: normal visual inspection and full ROM Chest Chest palpation inspection: normal inspection of the chest Resp Effort Inspection: normal respiratory effort and able to speak in complete sentences GI Inspection: normal to inspection and obesity Palpation: soft and no hepatosplenomegaly Rectal Exam: deferred Skin General: ecchymosis (scattered areas) Neuro General: patient alert, patient oriented x3 and moves all extremities Cognition: normal cognition Speech: speech normal (more content not included)... Normal [facility] .Manual Diffon 07-13-2024 Atypical Lymphs 6.0 % High 0.0-5.0 [facility] Comment on above: Performed By: #### M ORPH, CBC, DIFF #### [address] [address] Aytpical Lymph, Abs Manual 1.7 10 3/mcL High 0.0-0.5 [facility] Comment on above: Performed By: #### M ORPH, CBC, DIFF #### [address] [address] Bands 1.0 % Normal 0.0-5.0 [facility] Comment on above: Performed By: #### M ORPH, CBC, DIFF #### [address] [address] Basophil %, Manual 0.0 % Normal 0.0-2.5 [facility] Comment on above: Performed By: #### M ORPH, CBC, DIFF #### [address] [address] Basophil, Abs Manual 0.0 10 3/mcL Normal 0.0-0.3 [facility] Comment on above: Performed By: #### M ORPH, CBC, DIFF #### [address] [address] Eosinophil %, Manual 1.0 % Normal 0.0-6.0 [facility] Comment on above: Performed By: #### M ORPH, CBC, DIFF #### [address] [address] Eosinophil, Abs Manual 0.3 10 3/mcL Normal 0.0-0.7 [facility] Comment on above: Performed By: #### M ORPH, CBC, DIFF #### [address] [address] Lymphocyte %, Manual 63.0 % High 20.0-40.0 [facility] Comment on above: Performed By: #### M ORPH, CBC, DIFF #### [address] [address] Lymphocyte, Abs Manual 18.4 10 3/mcL High 0.9-4.3 [facility] Comment on above: Performed By: #### M ORPH, CBC, DIFF #### [address] [address] Monocyte %, Manual 2.0 % Normal 2.0-13.0 [facility] Comment on above: Performed By: #### M ORPH, CBC, DIFF #### [address] [address] Monocyte, Abs Manual 0.6 10 3/mcL Normal 0.1-1.4 [facility] Comment on above: Performed By: #### M ORPH, CBC, DIFF #### [address] [address] Neutrophil %, Manual 27.0 % Low 50.0-75.0 [facility] Comment on above: Performed By: #### M ORPH, CBC, DIFF #### [address] [address] Neutrophil, Abs Manual 8.2 10 3/mcL High 2.3-8.1 [facility] Comment on above: Performed By: #### M ORPH, CBC, DIFF #### [address] [address] Nucleated RBC 0.0 /100 WBC Normal [facility] Comment on above: Performed By: #### M ORPH, CBC, DIFF #### [address] [address] .Morphon 07-13-2024 Ovalocytes 1+ Normal [facility] Comment on above: Performed By: #### M ORPH, CBC, DIFF #### [address] [address] Platelet Estimate Normal Normal [facility] Comment on above: Performed By: #### M ORPH, CBC, DIFF #### [place] [address] Smudge Cells 1+ Normal [facility] Comment on above: Performed By: #### M ORPH, CBC, DIFF #### [place] [address] CBCon 07-13-2024 Erythrocyte distribution width (RBC) [Ratio] 14.2 % Normal 11.5-15.5 [facility] Comment on above: Performed By: #### M ORPH, CBC, DIFF #### [address] [address] Hematocrit (Bld) [Volume fraction] 44.5 % Normal 34.0-46.0 [facility] Comment on above: Performed By: #### M ORPH, CBC, DIFF #### [address] [address] Hgb 14.5 G/dL Normal 12.0-16.0 [facility] Comment on above: Performed By: #### M ORPH, CBC, DIFF #### [address] [address] MCH (RBC) [Entitic mass] 28.9 pg Normal 27.0-33.0 [facility] Comment on above: Performed By: #### M ORPH, CBC, DIFF #### [address] [address] MCHC 32.5 G/dL Normal 32.0-36.0 [facility] Comment on above: Performed By: #### M ORPH, CBC, DIFF #### [address] [address] MCV (RBC) [Entitic vol] 89.1 fL Normal 80.0-99.0 [facility] Comment on above: Performed By: #### M ORPH, CBC, DIFF #### [address] [address] Platelet 177 10 3/mcL Normal 150-450 [facility] Comment on above: Performed By: #### M ORPH, CBC, DIFF #### [address] [address] Platelet mean volume (Bld) [Entitic vol] 7.6 fL Normal 6.6-10.5 [facility] Comment on above: Performed By: #### M ORPH, CBC, DIFF #### [address] [address] RBC 5.00 10 6/mcL Normal 4.10-5.30 [facility] Comment on above: Performed By: #### M ORPH, CBC, DIFF #### [address] [address] WBC 29.2 10 3/mcL High 4.5-10.8 [facility] Comment on above: Performed By: #### M ORPH, CBC, DIFF #### [address] [address] .GFRon 06-26-2024 Estimated Glomerular Filtration Rate 81 ml/min/1.73sqm Normal [facility] Comment on above: Result Comment: Stages of Chronic Kidney Disease (CKD) Stage Description eGFR(ml/min/1.73 sq.m.) CKD 1 Normal kidney function or >=90 normal kindney function with possible kidney damage (ex. Proteinuria) CKD 2 Kidney damage with mild loss 60-89 of kidney function CKD 3a Mild to moderate loss of kidney 45-59 function CKD 3b Moderate to severe loss of 30-44 of kindey function CKD 4 Severe loss of kidney function 15-29 CKD 5 Kidney failure <15 Note: (go live 2024) the eGFR calculation was updated to the 2020 CKD-EPI creatinine equation without a race factor to calculate the eGFR results. Performed By: #### M ORPH, CBC, DIFF #### [address] [address] .Manual Diffon 06-26-2024 Basophil %, Manual 0.0 % Normal 0.0-2.5 [facility] Comment on above: Performed By: #### G FR, CBC, MORPH, DIFF, CMP #### [place] [address] Basophil, Abs Manual 0.0 10 3/mcL Normal 0.0-0.2 [facility] Comment on above: Performed By: #### G FR, CBC, MORPH, DIFF, CMP #### [address] [address] Eosinophil %, Manual 1.0 % Normal 0.0-7.0 [facility] Comment on above: Performed By: #### G FR, CBC, MORPH, DIFF, CMP #### [address] [address] Eosinophil, Abs Manual 0.3 10 3/mcL Normal 0.0-0.7 [facility] Comment on above: Performed By: #### G FR, CBC, MORPH, DIFF, CMP #### [address] [address] Lymphocyte %, Manual 82.0 % High 20.0-40.0 [facility] Comment on above: Performed By: #### G FR, CBC, MORPH, DIFF, CMP #### [address] [address] Lymphocyte, Abs Manual 26.5 10 3/mcL High 0.9-4.3 [facility] Comment on above: Performed By: #### G FR, CBC, MORPH, DIFF, CMP #### [address] [address] Monocyte %, Manual 0.0 % Low 2.0-13.0 [facility] Comment on above: Performed By: #### G FR, CBC, MORPH, DIFF, CMP #### [address] [address] Monocyte, Abs Manual 0.0 10 3/mcL Low 0.1-1.4 [facility] Comment on above: Performed By: #### G FR, CBC, MORPH, DIFF, CMP #### [address] [address] Neutrophil %, Manual 17.0 % Low 50.0-75.0 [facility] Comment on above: Performed By: #### G FR, CBC, MORPH, DIFF, CMP #### [place] [address] Neutrophil, Abs Manual 5.5 10 3/mcL Normal 2.3-8.1 [facility] Comment on above: Performed By: #### G FR, CBC, MORPH, DIFF, CMP #### [address] [address] Nucleated RBC 0.0 /100 WBC Normal [facility] Comment on above: Performed By: #### G FR, CBC, MORPH, DIFF, CMP #### [address] [address] .Morphon 06-26-2024 Platelet Estimate Normal Normal [facility] Comment on above: Performed By: #### G FR, CBC, MORPH, DIFF, CMP #### [place] [id number] Smudge Cells 1+ Normal [facility] Comment on above: Performed By: #### G FR, CBC, MORPH, DIFF, CMP #### [address] [address] CBCon 06-26-2024 Erythrocyte distribution width (RBC) [Ratio] 14.7 % Normal 11.5-15.5 [facility] Comment on above: Performed By: #### G FR, CBC, MORPH, DIFF, CMP #### [address] [address] Hematocrit (Bld) [Volume fraction] 44.0 % Normal 34.0-46.0 [facility] Comment on above: Performed By: #### G FR, CBC, MORPH, DIFF, CMP #### [address] [address] Hgb 14.3 G/dL Normal 12.0-16.0 [facility] Comment on above: Performed By: #### G FR, CBC, MORPH, DIFF, CMP #### [address] [address] MCH (RBC) [Entitic mass] 28.8 pg Normal 27.0-33.0 [facility] Comment on above: Performed By: #### G FR, CBC, MORPH, DIFF, CMP #### [address] [address] MCHC 32.4 G/dL Normal 32.0-36.0 [facility] Comment on above: Performed By: #### G FR, CBC, MORPH, DIFF, CMP #### [address] [address] MCV (RBC) [Entitic vol] 88.9 fL Normal 80.0-99.0 [facility] Comment on above: Performed By: #### G FR, CBC, MORPH, DIFF, CMP #### [address] [address] Platelet 205 10 3/mcL Normal 150-450 [facility] Comment on above: Performed By: #### G FR, CBC, MORPH, DIFF, CMP #### [address] [address] Platelet mean volume (Bld) [Entitic vol] 7.4 fL Normal 6.6-10.5 [facility] Comment on above: Performed By: #### G FR, CBC, MORPH, DIFF, CMP #### [address] [address] RBC 4.95 10 6/mcL Normal 4.10-5.30 [facility] Comment on above: Performed By: #### G FR, CBC, MORPH, DIFF, CMP #### [address] [address] WBC 32.3 10 3/mcL High 4.5-10.8 [facility] Comment on above: Performed By: #### G FR, CBC, MORPH, DIFF, CMP #### [address] [address] CMPon 06-26-2024 Albumin Level 3.9 G/dL Normal 3.4-4.8 [facility] Comment on above: Performed By: #### G FR, CBC, MORPH, DIFF, CMP #### [place] [id number] Albumin/Globulin [Mass ratio] 1.6 {ratio} Normal 1.1-2.5 [facility] Comment on above: Performed By: #### G FR, CBC, MORPH, DIFF, CMP #### [place] [id number] ALP [Catalytic activity/Vol] 92 U/L Normal 40-135 [facility] Comment on above: Performed By: #### G FR, CBC, MORPH, DIFF, CMP #### [address] [address] ALT [Catalytic activity/Vol] 22 U/L Normal 14-59 [facility] Comment on above: Performed By: #### G FR, CBC, MORPH, DIFF, CMP #### [place] [id number] AST [Catalytic activity/Vol] 16 U/L Normal 10-40 [facility] Comment on above: Performed By: #### G FR, CBC, MORPH, DIFF, CMP #### [place] [id number] Bili Total 0.8 mg/dL Normal 0.2-1.0 [facility] Comment on above: Result Comment: Use of this assay is not recommended for patients undergoing treatment with eltrombopag due to the potential for falsely elevated results. Performed By: #### G FR, CBC, MORPH, DIFF, CMP #### [place] [address] BUN/Creatinine Ratio 24 ratio Normal 7-27 [facility] Comment on above: Performed By: #### G FR, CBC, MORPH, DIFF, CMP #### [place] [address] Calcium [Mass/Vol] 9.0 mg/dL Normal 8.4-10.2 [facility] Comment on above: Performed By: #### G FR, CBC, MORPH, DIFF, CMP #### [place] [address] Chloride [Moles/Vol] 102 mmol/L Normal 98-107 [facility] Comment on above: Performed By: #### G FR, CBC, MORPH, DIFF, CMP #### [place] [address] CO2 [Moles/Vol] 31 mmol/L Normal 23-31 [facility] Comment on above: Performed By: #### G FR, CBC, MORPH, DIFF, CMP #### [place] [address] Creatinine [Mass/Vol] 0.72 mg/dL Normal 0.55-1.02 [facility] Comment on above: Result Comment: Test ing performed on Siemens Dimension EXL analyzer using a modified kinetic Kenny technique. Performed By: #### G FR, CBC, MORPH, DIFF, CMP #### [place] [address] Electrolyte Balance 7.0 mEq/L Normal 4.0-15.0 [facility] Comment on above: Performed By: #### G FR, CBC, MORPH, DIFF, CMP #### [place] [address] Globulin 2.4 G/dL Normal 1.5-3.8 [facility] Comment on above: Performed By: #### G FR, CBC, MORPH, DIFF, CMP #### [address] [address] Glucose [Mass/Vol] 134 mg/dL High 83-110 [facility] Comment on above: Performed By: #### G FR, CBC, MORPH, DIFF, CMP #### [address] [address] Potassium [Moles/Vol] 3.6 mmol/L Normal 3.5-5.1 [facility] Comment on above: Performed By: #### G FR, CBC, MORPH, DIFF, CMP #### [address] [address] Sodium [Moles/Vol] 140 mmol/L Normal 136-145 [facility] Comment on above: Performed By: #### G FR, CBC, MORPH, DIFF, CMP #### [address] [address] Total Protein 6.3 G/dL Low 6.4-8.2 [facility] Comment on above: Performed By: #### G FR, CBC, MORPH, DIFF, CMP #### [address] [address] Urea nitrogen [Mass/Vol] 17 mg/dL Normal 7-18 [facility] Comment on above: Performed By: #### G FR, CBC, MORPH, DIFF, CMP #### [address] [address] XR FLUORO GUIDANCE FOR THERA PY INJECTIONon 05-19-2024 XR FLUORO GUIDANCE FOR THERAPY INJECTION ORIGINAL Images acquired, not reported on this accession number. Normal [facility] PMDSon 05-09-2024 [employer] 13 Summary FINAL [facility] Comment on above: Result Comment: ==== TOXASSURE COMP DRUG ANALYSIS,UR ==== Test Result Flag Units Drug Present and Declared for Prescription Verification Tramadol 903 EXPECTED ng/mg creat O-Desmethyltramadol 617 EXPECTED ng/mg creat N-Desmethyltramadol 317 EXPECTED ng/mg creat Source of tramadol is a prescription medication. O-desmethyltramadol and N-desmethyltramadol are expected metabolites of tramadol. Acetaminophen PRESENT EXPECTED Drug Absent but Declared for Prescription Verification Salicylate Not Detected UNEXPECTED Aspirin, as indicated in the declared medication list, is not always detected even when used as directed. ==== Test Result Flag Units Ref Range Creatinine 154 mg/dL >=20 ==== Declared Medications: The flagging and interpretation on this report are based on the following declared medications. Unexpected results may arise from inaccuracies in the declared medications. Note: The testing scope of this panel includes these medications: Tramadol Note: The testing scope of this panel does not include small to moderate amounts of these reported medications: Acetaminophen Aspirin ==== For clinical consultation, please call . ==== Performed At: Mtime [address] [place] [id number] Justin Pelletier [facility] Ph:[phone] Performed By: #### [id number] #### [facility] [address] [place] [address] MRI BRAIN W/ + W/O CONTRASTo n 04-04-2024 MRI BRAIN W/ + W/O CONTRAST ORIGINAL HISTORY: Vertigo COMPARISON: No TECHNIQUE: 1. Sagittal and axial T1-weighted images. 2. Axial FLAIR images. 3. Axial T2-weighted and T2*-weighted images. 4. Axial diffusion-weighted images with ADC map. 5. Axial, sagittal and coronal T1-weighted images following uncomplicated administration of intravenous gadolinium contrast. FINDINGS: The ventricles and sulci are mildly enlarged. There are no abnormal intra or extra-axial fluid collections. There is mild punctate and nodular T2 hyperintensity in the cerebral white matter. Goodman-white matter differentiation is maintained. There is no abnormal restriction of diffusion. There is no abnormal enhancement of the brain or its coverings. The paranasal sinuses are clear. IMPRESSION: Mild volume loss and small vessel ischemic disease. Interpreted by: Bartolo Cerda MD Preliminary Report By: Bartolo Cerda MD Electronically signed By Bartolo Cerda MD Dictated Date: 04/04/2024 3:33:36 PM Prelim Date: 04/04/2024 3:36:14 PM Sign Date: 04/04/2024 3:36:14 PM Ordering Provider: RYLAND STOUT [facility] XR FLUORO GUIDANCE FOR THERA PY INJECTIONon 01-07-2024 XR FLUORO GUIDANCE FOR THERAPY INJECTION ORIGINAL Images acquired, not reported on this accession number. [facility] XR FLUORO GUIDANCE FOR THERA PY INJECTIONon 11-18-2022 XR FLUORO GUIDANCE FOR THERAPY INJECTION ORIGINAL Images acquired, not reported on this accession number. Normal [facility] ([place] LABORATORYOrdered By: Esme Eden on 12-03-2021 Basophil %, Manual 0.0 1 Invalid Interpretation Code 0.0 - 2.5 % AO Workflow SS Basophil, Abs Manual 0.0 103/mcL Invalid Interpretation Code 0.0 - 0.2 10^3/mcL AO Workflow SS Eosinophil %, Manual 0.0 1 Invalid Interpretation Code 0.0 - 7.0 % AO Workflow SS Eosinophils (Bld) [#/Vol] 0.0 103/mcL Invalid Interpretation Code 0.0 - 0.4 10^3/mcL AO Workflow SS Erythrocyte distribution width (RBC) [Ratio] 14.7 % Invalid Interpretation Code 11.5 - 14.5 % AO Workflow SS ESR 15 minute reading (Bld) [Velocity] 1 mm/hr Invalid Interpretation Code 0 - 30 mm/hr AO Man Heme SS Hematocrit (Bld) [Volume fraction] 43.3 % Invalid Interpretation Code 37.0 - 47.0 % AO Workflow SS Hemoglobin (Bld) [Mass/Vol] 14.1 G/dL Invalid Interpretation Code 12.0 - 16.0 G/dL AO Workflow SS Lymphocyte %, Manual 74.0 1 Invalid Interpretation Code 10.0 - 50.0 % AO Workflow SS Lymphocyte, Abs Manual 38.3 103/mcL Invalid Interpretation Code 0.8 - 3.9 10^3/mcL AO Workflow SS MCH (RBC) [Entitic mass] 28.7 pg Invalid Interpretation Code 27.0 - 31.2 pg AO Workflow SS MCHC 32.5 G/dL Invalid Interpretation Code 33.0 - 37.0 G/dL AO Workflow SS MCV (RBC) [Entitic vol] 88.4 fL Invalid Interpretation Code 80.0 - 94.0 fL AO Workflow SS Monocyte %, Manual 5.0 1 Invalid Interpretation Code 1.7 - 13.0 % AO Workflow SS Monocyte, Abs Manual 2.6 103/mcL Invalid Interpretation Code 0.2 - 1.0 10^3/mcL AO Workflow SS Neutrophil %, Manual 15.0 1 Invalid Interpretation Code 37.0 - 80.0 % AO Workflow SS Neutrophil, Abs Manual 7.8 103/mcL Invalid Interpretation Code 2.9 - 6.2 10^3/mcL AO Workflow SS Nucleated RBC 0.0 /100 WBC Invalid Interpretation Code AO Workflow SS Platelet Estimate Normal *NA* (12/03/21 12:04 PM) Invalid Interpretation Code AO Workflow SS Platelet mean volume (Bld) [Entitic vol] 7.9 fL Invalid Interpretation Code 7.4 - 10.4 fL AO Workflow SS Platelets (Bld) [#/Vol] 185 103/mcL Invalid Interpretation Code 130 - 400 10^3/mcL AO Workflow SS RBC (Bld) [#/Vol] 4.90 106/mcL Invalid Interpretation Code 4.20 - 5.40 10^6/mcL AO Workflow SS Smudge Cells 3+ *NA* (12/03/21 12:04 PM) Invalid Interpretation Code AO Workflow SS Variant lymphocytes/100 WBC (Bld) 6.0 % Invalid Interpretation Code 0.0 - 5.0 % AO Workflow SS WBC 51.8 103/mcL Invalid Interpretation Code 4.6 - 10.8 10^3/mcL AO Workflow SS Comment on above: Result Comment: Crit ical WBC called to and read back by Neida,RN 1426 12-03-21 SB LABORATORYOrdered By: Bonnie Latham on 12-03-2021 C-Reactive Protein mg/dL Invalid Interpretation Code 0.0 - 0.9 mg/dL AO Chemistry S LABORATORYOrdered By: SYSTEM SYSTEM on 10-20-2021 Basophils (Bld) [#/Vol] 0.0 103/mcL Invalid Interpretation Code 0.0 - 0.3 10^3/mcL AH Workflow SS Basophils/100 WBC (Bld) 0.0 % Invalid Interpretation Code 0.0 - 2.5 % AH Workflow SS Eosinophils (Bld) [#/Vol] 0.0 103/mcL Invalid Interpretation Code 0.0 - 0.7 10^3/mcL AH Workflow SS Eosinophils/100 WBC (Bld) 0.0 % Invalid Interpretation Code 0.0 - 6.0 % AH Workflow SS Erythrocyte distribution width (RBC) [Ratio] 14.2 % Invalid Interpretation Code 11.5 - 15.5 % AH Workflow SS Hematocrit (Bld) [Volume fraction] 45.0 % Invalid Interpretation Code 34.0 - 46.0 % AH Workflow SS Hemoglobin (Bld) [Mass/Vol] 14.7 G/dL Invalid Interpretation Code 12.0 - 16.0 G/dL AH Workflow SS Lymphocytes (Bld) [#/Vol] 35.9 103/mcL Invalid Interpretation Code 0.9 - 4.3 10^3/mcL AH Workflow SS Lymphocytes/100 WBC (Bld) 84.0 % Invalid Interpretation Code 20.0 - 40.0 % AH Workflow SS MCH (RBC) [Entitic mass] 28.6 pg Invalid Interpretation Code 27.0 - 33.0 pg AH Workflow SS MCHC 32.6 G/dL Invalid Interpretation Code 32.0 - 36.0 G/dL AH Workflow SS MCV (RBC) [Entitic vol] 88.0 fL Invalid Interpretation Code 80.0 - 99.0 fL AH Workflow SS Monocyte distribution width Auto (Bld) [Entitic vol] Not Performed 1 *NA* (10/20/21 8:23 AM) Invalid Interpretation Code 0.00 - 20.00 Hematology S Comment on above: Result Comment: MDW testing performed only on adult ER patients between the ages of 18-89 years. Monocytes (Bld) [#/Vol] 0.8 103/mcL Invalid Interpretation Code 0.1 - 1.4 10^3/mcL AH Workflow SS Monocytes/100 WBC (Bld) 2.0 % Invalid Interpretation Code 2.0 - 13.0 % AH Workflow SS Neutrophils (Bld) [#/Vol] 6.0 103/mcL Invalid Interpretation Code 2.3 - 8.1 10^3/mcL AH Workflow SS Neutrophils/100 WBC (Bld) 14.0 % Invalid Interpretation Code 50.0 - 75.0 % AH Workflow SS Nucleated RBC 0.0 /100 WBC Invalid Interpretation Code AH Workflow SS Ovalocytes LM Ql (Bld) 1+ *NA* (10/20/21 8:23 AM) Invalid Interpretation Code AH Workflow SS Platelet mean volume (Bld) [Entitic vol] 7.7 fL Invalid Interpretation Code 6.6 - 10.5 fL AH Workflow SS Platelets (Bld) [#/Vol] 185 103/mcL Invalid Interpretation Code 150 - 450 10^3/mcL AH Workflow SS Platelets LM Ql (Bld) Normal *NA* (10/20/21 8:23 AM) Invalid Interpretation Code AH Workflow SS Poikilocytosis LM Ql (Bld) 1+ *NA* (10/20/21 8:23 AM) Invalid Interpretation Code AH Workflow SS RBC (Bld) [#/Vol] 5.12 106/mcL Invalid Interpretation Code 4.10 - 5.30 10^6/mcL AH Workflow SS Smudge Cells 1+ *NA* (10/20/21 8:23 AM) Invalid Interpretation Code AH Workflow SS WBC 42.7 103/mcL Invalid Interpretation Code 4.5 - 10.8 10^3/mcL AH Workflow SS LABORATORYOrdered By: Saba Hammer on 10-20-2021 INR Coag (PPP) [Relative time] 1.0 {INR} Invalid Interpretation Code AH Auto Coag SS PT Coag (PPP) [Time] 12.2 s Invalid Interpretation Code 9.0 - 14.9 seconds AH Auto Coag SS LABORATORYOrdered By: Gena Franklin on 10-17-2021 Anisocytosis Ql (Bld) 1+ *NA* (10/17/21 8:04 AM) Invalid Interpretation Code AO Workflow SS Basophil %, Manual 0.0 1 Invalid Interpretation Code 0.0 - 2.5 % AO Workflow SS Basophil, Abs Manual 0.0 103/mcL Invalid Interpretation Code 0.0 - 0.2 10^3/mcL AO Workflow SS Eosinophil %, Manual 1.0 1 Invalid Interpretation Code 0.0 - 7.0 % AO Workflow SS Eosinophils (Bld) [#/Vol] 0.4 103/mcL Invalid Interpretation Code 0.0 - 0.4 10^3/mcL AO Workflow SS Erythrocyte distribution width (RBC) [Ratio] 14.1 % Invalid Interpretation Code 11.5 - 14.5 % AO Workflow SS Hematocrit (Bld) [Volume fraction] 43.1 % Invalid Interpretation Code 37.0 - 47.0 % AO Workflow SS Hemoglobin (Bld) [Mass/Vol] 14.0 G/dL Invalid Interpretation Code 12.0 - 16.0 G/dL AO Workflow SS Lymphocyte %, Manual 82.0 1 Invalid Interpretation Code 10.0 - 50.0 % AO Workflow SS Lymphocyte, Abs Manual 33.7 103/mcL Invalid Interpretation Code 0.8 - 3.9 10^3/mcL AO Workflow SS MCH (RBC) [Entitic mass] 28.4 pg Invalid Interpretation Code 27.0 - 31.2 pg AO Workflow SS MCHC 32.5 G/dL Invalid Interpretation Code 33.0 - 37.0 G/dL AO Workflow SS MCV (RBC) [Entitic vol] 87.3 fL Invalid Interpretation Code 80.0 - 94.0 fL AO Workflow SS Monocyte %, Manual 3.0 1 Invalid Interpretation Code 1.7 - 13.0 % AO Workflow SS Monocyte, Abs Manual 1.2 103/mcL Invalid Interpretation Code 0.2 - 1.0 10^3/mcL AO Workflow SS Neutrophil %, Manual 14.0 1 Invalid Interpretation Code 37.0 - 80.0 % AO Workflow SS Neutrophil, Abs Manual 5.8 103/mcL Invalid Interpretation Code 2.9 - 6.2 10^3/mcL AO Workflow SS Nucleated RBC 0.0 /100 WBC Invalid Interpretation Code AO Workflow SS Ovalocytes LM Ql (Bld) 1+ *NA* (10/17/21 8:04 AM) Invalid Interpretation Code AO Workflow SS Platelet Estimate Normal *NA* (10/17/21 8:04 AM) Invalid Interpretation Code AO Workflow SS Platelet mean volume (Bld) [Entitic vol] 7.9 fL Invalid Interpretation Code 7.4 - 10.4 fL AO Workflow SS Platelets (Bld) [#/Vol] 197 103/mcL Invalid Interpretation Code 130 - 400 10^3/mcL AO Workflow SS Poikilocytosis LM Ql (Bld) 1+ *NA* (10/17/21 8:04 AM) Invalid Interpretation Code AO Workflow SS RBC (Bld) [#/Vol] 4.94 106/mcL Invalid Interpretation Code 4.20 - 5.40 10^6/mcL AO Workflow SS Smudge Cells 2+ *NA* (10/17/21 8:04 AM) Invalid Interpretation Code AO Workflow SS WBC 41.1 103/mcL Invalid Interpretation Code 4.6 - 10.8 10^3/mcL AO Workflow SS LABORATORYOrdered By: Derik Cerrato on 10-17-2021 Calcium [Mass/Vol] 8.8 mg/dL Invalid Interpretation Code 8.4 - 10.2 mg/dL AO ADM SS Chloride [Moles/Vol] 105 mmol/L Invalid Interpretation Code 98 - 107 mmol/L AO ADM SS CO2 [Moles/Vol] 31 mmol/L Invalid Interpretation Code 23 - 31 mmol/L AO ADM SS Creatinine [Mass/Vol] 0.87 mg/dL Invalid Interpretation Code 0.55 - 1.02 mg/dL AO ADM SS Electrolyte Balance 6.0 mEq/L Invalid Interpretation Code 4.0 - 15.0 mEq/L AO ADM SS Glucose [Mass/Vol] 117 mg/dL Invalid Interpretation Code 83 - 110 mg/dL AO ADM SS Magnesium [Mass/Vol] 1.9 mg/dL Invalid Interpretation Code 1.8 - 2.4 mg/dL AO ADM SS Potassium [Moles/Vol] 4.3 mmol/L Invalid Interpretation Code 3.5 - 5.1 mmol/L AO ADM SS Sodium [Moles/Vol] 142 mmol/L Invalid Interpretation Code 136 - 145 mmol/L AO ADM SS TSH Qn 3.03 m[IU]/L Invalid Interpretation Code 0.36 - 3.74 mcIU/mL AO ADM SS Urea nitrogen [Mass/Vol] 18 mg/dL Invalid Interpretation Code 7 - 18 mg/dL AO ADM SS Urea nitrogen/Creatinine [Mass ratio] 21 ratio Invalid Interpretation Code 7 - 27 ratio AO ADM SS LABORATORYOrdered By: SYSTEM SYSTEM on 10-17-2021 GFR 75 ml/min/1.73sqm Invalid Interpretation Code AO Chemistry S GFR Non- 62 ml/min/1.73sqm Invalid Interpretation Code AO Chemistry S Monocyte distribution width Auto (Bld) [Entitic vol] Not Performed 1 *NA* (10/17/21 8:04 AM) Invalid Interpretation Code 0.00 - 20.00 AO Hematology S Comment on above: Result Comment: MDW testing performed only on adult ER patients between the ages of 18-89 years. LABORATORYOrdered By: Lroene Reddy on 06-09-2021 Basophil %, Manual 0.0 1 Invalid Interpretation Code 0.0 - 2.5 % AO Auto Heme SS Basophil, Absolute 0.10 103/mcL Invalid Interpretation Code 0.00 - 0.19 10^3/mcL AO Auto Heme SS Basophils/100 WBC (Bld) 0.2 % Invalid Interpretation Code 0.0 - 2.5 % AO Auto Heme SS Cells Counted 100 Invalid Interpretation Code AO Auto Heme SS Eosinophil %, Manual 1.0 1 Invalid Interpretation Code 0.0 - 7.0 % AO Auto Heme SS Eosinophil, Absolute 0.30 103/mcL Invalid Interpretation Code 0.00 - 0.40 10^3/mcL AO Auto Heme SS Eosinophils/100 WBC (Bld) 0.8 % Invalid Interpretation Code 0.0 - 7.0 % AO Auto Heme SS ESR 15 minute reading (Bld) [Velocity] 4 mm/hr Invalid Interpretation Code 0 - 30 mm/hr AO Man Heme SS Lymphocyte %, Manual 72.0 1 Invalid Interpretation Code 10.0 - 50.0 % AO Auto Heme SS Lymphocyte, Absolute 27.20 103/mcL Invalid Interpretation Code 0.77 - 3.85 10^3/mcL AO Auto Heme SS Lymphocytes/100 WBC (Bld) 76.4 % Invalid Interpretation Code 10.0 - 50.0 % AO Auto Heme SS Monocyte %, Manual 3.0 1 Invalid Interpretation Code 1.7 - 13.0 % AO Auto Heme SS Monocyte, Absolute 0.80 103/mcL Invalid Interpretation Code 0.15 - 1.00 10^3/mcL AO Auto Heme SS Monocytes/100 WBC (Bld) 2.1 % Invalid Interpretation Code 1.7 - 13.0 % AO Auto Heme SS Neutrophil %, Manual 24.0 1 Invalid Interpretation Code 37.0 - 80.0 % AO Auto Heme SS Neutrophil, Absolute 7.30 103/mcL Invalid Interpretation Code 2.85 - 6.16 10^3/mcL AO Auto Heme SS Neutrophils/100 WBC (Bld) 20.5 % Invalid Interpretation Code 37.0 - 80.0 % AO Auto Heme SS Platelet Estimate Normal (06/09/21 3:45 PM) Invalid Interpretation Code AO Auto Heme SS RBC morphology finding Nom (Bld) Normal (06/09/21 3:45 PM) Invalid Interpretation Code AO Auto Heme SS LABORATORYOrdered By: Derik Cerrato on 06-09-2021 C-Reactive Protein mg/dL Invalid Interpretation Code 0.0 - 0.9 mg/dL AO Chemistry S Erythrocyte distribution width (RBC) [Ratio] 13.6 % Invalid Interpretation Code 11.5 - 14.5 % AO Auto Heme SS Hematocrit (Bld) [Volume fraction] 41.8 % Invalid Interpretation Code 37.0 - 47.0 % AO Auto Heme SS Hemoglobin (Bld) [Mass/Vol] 13.5 G/dL Invalid Interpretation Code 12.0 - 16.0 G/dL AO Auto Heme SS MCH (RBC) [Entitic mass] 28.2 pg Invalid Interpretation Code 27.0 - 31.2 pg AO Auto Heme SS MCHC (RBC) [Mass/Vol] 32.2 G/dL Invalid Interpretation Code 33.0 - 37.0 G/dL AO Auto Heme SS MCV (RBC) [Entitic vol] 87.4 fL Invalid Interpretation Code 80.0 - 94.0 fL AO Auto Heme SS Platelet mean volume (Bld) [Entitic vol] 7.7 fL Invalid Interpretation Code 7.4 - 10.4 fL AO Auto Heme SS Platelets (Bld) [#/Vol] 248 103/mcL Invalid Interpretation Code 130 - 400 10^3/mcL AO Auto Heme SS RBC (Bld) [#/Vol] 4.78 106/mcL Invalid Interpretation Code 4.20 - 5.40 10^6/mcL AO Auto Heme SS WBC (Bld) [#/Vol] 35.60 103/mcL Invalid Interpretation Code 4.60 - 10.80 10^3/mcL AO Auto Heme SS FLUOROSCOPY IN OR/PAIN MGTon 01-18-2020 FLUOROSCOPY IN OR/PAIN MGT FLUOROSCOPY IN OR/PAIN MGT Ordering Physician: Genevieve Pierre DO 01/18/2020 2:05 PM FLUOROSCOPY Clinical Statement: Radiculopathy Comparison: None FINDINGS: Two spot fluoroscopic images were saved demonstrating needle placement at L5-S1. A total of 18.3 seconds fluoroscopy time was utilized. Please see the ordering clinician's report for full details. IMPRESSION: Documentation of fluoroscopy. ---- Electronic Signature on File ---- Signed By: Lori Lowe MD [email or web address] Dictated: 01/18/2020 2:22 PM Signed: 01/18/2020 2:22 PM Reported By: LORI LOWE M.D. Signed By: LORI LOWE M.D. [facility] FLUOROSCOPY IN OR/PAIN MGTon 05-25-2019 FLUOROSCOPY IN OR/PAIN MGT FLUOROSCOPY IN OR/PAIN MGT Ordering Physician: Genevieve Pierre DO 05/25/2019 1:50 PM FLUOROSCOPY AND SPOT RADIOGRAPHS: Clinical Statement: Pain Comparison: Fluoroscopic images 01/12/2019 FINDINGS: 14.2 seconds of fluoroscopic time was utilized by Dr. Pierre. Please see operative report for further details. Spot radiograph(s) was/were obtained. IMPRESSION: Documentation of utilization of fluoroscopic time as above. ---- Electronic Signature on File ---- Signed By: Sacha Mariano MD [email or web address] Dictated: 05/25/2019 2:08 PM Signed: 05/25/2019 2:08 PM Reported By: SACHA MARIANO M.D. Signed By: SACHA MARIANO M.D. [facility] Vital Signs Date Time Vital Sign Value Performing Clinician Daren coleman 11-10-2024 07:13-0400 Body height 152.4 cm Quocchristine Stokes NP-C Work Phone: [facility] 05-19-2024 12:37-0500 Diastolic Blood Pressure Non-Invasive 61 mm[Hg] REGINA COLEY MD [facility] 05-19-2024 12:37-0500 Respiratory rate 14 /min REGINA COLEY MD [facility] 05-19-2024 12:37-0500 Systolic Blood Pressure Non-Invasive 145 mm[Hg] REGINA COLEY MD [facility] 05-19-2024 12:30-0500 Diastolic Blood Pressure Non-Invasive 92 mm[Hg] REGINA COLEY MD [facility] 05-19-2024 12:30-0500 Heart rate 91 /min REGINA COLEY MD [facility] 05-19-2024 12:30-0500 Respiratory rate 14 /min REGINA COLEY MD [facility] 05-19-2024 12:30-0500 Systolic Blood Pressure Non-Invasive 163 mm[Hg] REGINA COLEY MD [facility] 05-19-2024 12:26-0500 Diastolic Blood Pressure Non-Invasive 81 mm[Hg] REGINA COLEY MD [facility] 05-19-2024 12:26-0500 Heart rate 91 /min REGINA COLEY MD [facility] 05-19-2024 12:26-0500 Systolic Blood Pressure Non-Invasive 172 mm[Hg] REGINA COLEY MD [facility] 05-19-2024 12:22-0500 Heart rate 90 /min REGINA COLEY MD [facility] 05-19-2024 11:41-0500 Body height 149.86 cm REGINA COLEY MD [facility] 05-19-2024 11:41-0500 Body temperature 97.52 [degF] REGINA COLEY MD [facility] 05-19-2024 11:41-0500 Body weight 82.73 kg RGEINA COLEY MD [facility] 05-19-2024 11:41-0500 Respiratory rate 16 /min REGINA COLEY MD [facility] 04-06-2024 11:05-0500 Body temperature 97.7 [degF] QUOC STOKES USER SUPPORT SPECIALIST-CHIEF PRIVACY OFFICER [facility] 04-06-2024 11:05-0500 Diastolic Blood Pressure Non-Invasive 97 mm[Hg] QUOC STOKES USER SUPPORT SPECIALIST-CHIEF PRIVACY OFFICER [facility] 04-06-2024 11:05-0500 Heart rate 84 /min QUOC STOKES USER SUPPORT SPECIALIST-CHIEF PRIVACY OFFICER [facility] 04-06-2024 11:05-0500 Reason For Taking VItal Signs QUOC STOKES USER SUPPORT SPECIALIST-CHIEF PRIVACY OFFICER [facility] 04-06-2024 11:05-0500 Respiratory rate 16 /min QUOC STOKES USER SUPPORT SPECIALIST-CHIEF PRIVACY OFFICER [facility] 04-06-2024 11:05-0500 Systolic Blood Pressure Non-Invasive 172 mm[Hg] QUOC STOKES USER SUPPORT SPECIALIST-CHIEF PRIVACY OFFICER [facility] 01-07-2024 13:55-0400 Body temperature 98.6 [degF] REGINA COLEY MD [facility] 01-07-2024 13:55-0400 Diastolic Blood Pressure Non-Invasive 70 mm[Hg] REGINA COLEY MD [facility] 01-07-2024 13:55-0400 Heart rate 88 /min REGINA COLEY MD [facility] 01-07-2024 13:55-0400 Respiratory rate 18 /min REGINA COLEY MD [facility] 01-07-2024 13:55-0400 Systolic Blood Pressure Non-Invasive 141 mm[Hg] REGINA COLEY MD [facility] 01-07-2024 13:45-0400 Diastolic Blood Pressure Non-Invasive 63 mm[Hg] REGINA COLEY MD [facility] 01-07-2024 13:45-0400 Heart rate 91 /min REGINA COLEY MD [facility] 01-07-2024 13:45-0400 Systolic Blood Pressure Non-Invasive 166 mm[Hg] REGINA COLEY MD [facility] 01-07-2024 13:41-0400 Diastolic Blood Pressure Non-Invasive 101 mm[Hg] REGINA COLEY MD [facility] 01-07-2024 13:41-0400 Heart rate 91 /min REGINA COLEY MD [facility] 01-07-2024 13:41-0400 Systolic Blood Pressure Non-Invasive 159 mm[Hg] REGINA COLEY MD [facility] 01-07-2024 12:43-0400 Body height 144.78 cm REGINA COLEY MD [facility] 01-07-2024 12:43-0400 Body temperature 97.88 [degF] REGINA COLEY MD [facility] 01-07-2024 12:43-0400 Body weight 83.18 kg REGINA COLEY MD [facility] 01-07-2024 12:43-0400 Respiratory rate 18 /min REGINA COLEY MD [facility] 09-28-2023 11:38-0400 Body temperature 97.7 [degF] QUOCWILL STOKES USER SUPPORT SPECIALIST-CHIEF PRIVACY OFFICER [facility] 09-28-2023 11:38-0400 Diastolic Blood Pressure Non-Invasive 68 mm[Hg] QUOC STOKES USER SUPPORT SPECIALIST-CHIEF PRIVACY OFFICER [facility] 09-28-2023 11:38-0400 Heart rate 83 /min QUOC STOKES USER SUPPORT SPECIALIST-CHIEF PRIVACY OFFICER [facility] 09-28-2023 11:38-0400 Respiratory rate 14 /min QUOC STOKES USER SUPPORT SPECIALIST-CHIEF PRIVACY OFFICER [facility] 09-28-2023 11:38-0400 Systolic Blood Pressure Non-Invasive 145 mm[Hg] QUOC STOKES USER SUPPORT SPECIALIST-CHIEF PRIVACY OFFICER [facility] 03-24-2023 10:57-0500 Body temperature 98.24 [degF] QUOCWILL STOKES USER SUPPORT SPECIALIST-CHIEF PRIVACY OFFICER [facility] 03-24-2023 10:57-0500 Diastolic Blood Pressure Non-Invasive 60 mm[Hg] QUOC STOKES USER SUPPORT SPECIALIST-CHIEF PRIVACY OFFICER [facility] 03-24-2023 10:57-0500 Heart rate 63 /min QUOC STOKES USER SUPPORT SPECIALIST-CHIEF PRIVACY OFFICER [facility] 03-24-2023 10:57-0500 Respiratory rate 18 /min QUOC STOKES USER SUPPORT SPECIALIST-CHIEF PRIVACY OFFICER [facility] 03-24-2023 10:57-0500 Systolic Blood Pressure Non-Invasive 124 mm[Hg] QUOC STOKES USER SUPPORT SPECIALIST-CHIEF PRIVACY OFFICER [facility] 11-09-2022 07:25-0400 Diastolic Blood Pressure Non-Invasive 69 1 KHURRAM HEBERT MD [facility] 11-09-2022 07:25-0400 Heart rate 75 /min KHURRAM HEBERT MD [facility] 11-09-2022 07:25-0400 Respiratory rate 16 /min KHURRAM HEBERT MD [facility] 11-09-2022 07:25-0400 Systolic Blood Pressure Non-Invasive 139 1 KHURRAM HEBERT MD [facility] 11-09-2022 07:03-0400 Body temperature 97.52 [degF] KHURRAM HEBERT MD [facility] 11-09-2022 07:03-0400 Diastolic Blood Pressure Non-Invasive 84 1 KHURRAM HEBERT MD [facility] 11-09-2022 07:03-0400 Heart rate 76 /min KHURRAM HEBERT MD [facility] 11-09-2022 07:03-0400 Respiratory rate 16 /min KHURRAM HEBERT MD [facility] 11-09-2022 07:03-0400 Systolic Blood Pressure Non-Invasive 144 1 KHURRAM HEBERT MD [facility] 11-09-2022 07:02-0400 Body height 152 cm KHURRAM HEBERT MD [facility] 11-09-2022 07:02-0400 Body weight 88 kg KHURRAM HEBERT MD [facility] 11-09-2022 07:02-0400 Body weight 38.09 kg/m2 KHURRAM HEBERT MD [facility] 10-20-2021 12:25-0400 diastolic 60 mm[Hg] CYNTHIA KENNEDY MD [facility] 10-20-2021 12:25-0400 Heart rate 72 /min CYNTHIA KENNEDY MD [facility] 10-20-2021 12:25-0400 systolic 119 mm[Hg] CYNTHIA KENNEDY MD [facility] 10-20-2021 12:09-0400 diastolic 55 mm[Hg] CYNTHIA KENNEDY MD [facility] 10-20-2021 12:09-0400 Heart rate 74 /min CYNTHIA KENNEDY MD [facility] 10-20-2021 12:09-0400 Respiratory rate 16 /min CYNTHIA KENNEDY MD [facility] 10-20-2021 12:09-0400 systolic 116 mm[Hg] CYNTHIA KENNEDY MD [address] [place] [address] 10-20-2021 11:55-0400 diastolic 58 mm[Hg] CYNTHIA KENNEDY MD [address] [place] [address] 10-20-2021 11:55-0400 Heart rate 78 /min CYNTHIA KENNEDY MD [address] [place] [address] 10-20-2021 11:55-0400 Respiratory rate 16 /min CYNTHIA KENNEDY MD [address] [place] [address] 10-20-2021 11:55-0400 systolic 122 mm[Hg] CYNTHIA KENNEDY MD [address] [place] [address] 10-20-2021 11:52-0400 Respiratory rate 16 /min CYNTHIA KENNEDY MD [address] [place] [address] 10-20-2021 11:28-0400 Reason For Taking VItal Signs CYNTHIA KENNEDY MD [address] [place] [address] 10-20-2021 08:27-0400 Body height 152.4 cm CYNTHIA KENNEDY MD [address] [place] [address] 10-20-2021 08:27-0400 Body temperature 97.7 [degF] CYNTHIA KENNEDY MD [address] [place] [address] 10-20-2021 08:27-0400 Body weight 87.1 kg CYNTHIA KENNEDY MD [address] [place] [address] 10-20-2021 08:27-0400 Body weight 37.5 kg/m2 CYNTHIA KENNEDY MD [address] [place] [address] Encounters Encounter Date Encounter Type Care Provider Facility Start: 12-13-2024 ambulatory Oscar Friend Facility :[facility] Start: 11-23-2024 ambulatory Quoc Stokes NP Facil ity:[facility] Start: 11-13-2024 End: 11-13-2024 Patient encounter procedure Liz Coronado COMMERCIAL ENERGY AUDITOR-C -[facility] Work Phone: Start: 11-13-2024 End: 11-13-2024 ambulatory Quoc Stokes COMMERCIAL ENERGY AUDITOR-C Work Phone: -[facility] Start: 10-11-2024 End: 10-11-2024 ambulatory QUOC Ileana KIKE USER SUPPORT SPECIALIST-CHIEF PRIVACY OFFICER Facility:[facility] Start: 10-11-2024 End: 10-11-2024 SAME DAY STAY QUOC S KIKE USER SUPPORT SPECIALIST-CHIEF PRIVACY OFFICER [facility] Start: 07-13-2024 End: 07-13-2024 ambulatory QUOC Ileana KIKE USER SUPPORT SPECIALIST-CHIEF PRIVACY OFFICER Facility:[facility] Start: 06-26-2024 End: 06-26-2024 ambulatory QUOC Ileana KIKE USER SUPPORT SPECIALIST-CHIEF PRIVACY OFFICER Facility:[facility] Start: 05-19-2024 End: 05-19-2024 ambulatory REGINA COLEY MD [facility] Start: 05-19-2024 End: 05-19-2024 SAME DAY STAY REGINA COLEY MD [facility] Start: 05-01-2024 End: 05-05-2024 ambulatory SKYLA MACO USER SUPPORT SPECIALIST-CHIEF PRIVACY OFFICER Facility:[facility] Start: 04-06-2024 End: 04-06-2024 ambulatory QUOC Ileana KIKE USER SUPPORT SPECIALIST-CHIEF PRIVACY OFFICER Facility:[facility] Start: 04-06-2024 End: 04-06-2024 SAME DAY STAY QUOC Ileana KIKE USER SUPPORT SPECIALIST-CHIEF PRIVACY OFFICER [facility] Start: 04-04-2024 End: 04-04-2024 ambulatory RYLAND STOUT MD Facility:[facility] Start: 04-04-2024 End: 04-04-2024 Patient encounter procedure RYLAND STOUT MD [facility] Start: 01-07-2024 End: 01-07-2024 ambulatory REGINA COLEY MD Facility:[facility] Start: 01-07-2024 End: 01-07-2024 SAME DAY STAY REGINA COLEY MD [facility] Start: 09-28-2023 End: 09-28-2023 ambulatory QUOC Ileana KIKE USER SUPPORT SPECIALIST-CHIEF PRIVACY OFFICER Facility:[facility] Start: 09-28-2023 End: 09-28-2023 SAME DAY STAY QUOC S KIKE USER SUPPORT SPECIALIST-CHIEF PRIVACY OFFICER [facility] Start: 06-08-2023 End: 07-20-2023 ambulatory QUOC Ileana KIKE USER SUPPORT SPECIALIST-CHIEF PRIVACY OFFICER Facility:[facility] Start: 06-08-2023 End: 07-20-2023 Physical therapy management RYLAND STOUT MD [facility] Start: 03-24-2023 End: 03-24-2023 ambulatory QUOC Ileana KIKE USER SUPPORT SPECIALIST-CHIEF PRIVACY OFFICER Facility:[facility] Start: 03-24-2023 End: 03-24-2023 SAME DAY STAY QUOC S KIKE USER SUPPORT SPECIALIST-CHIEF PRIVACY OFFICER [facility] Start: 02-22-2023 End: 02-22-2023 ambulatory KHURRAM HEBERT MD Facility:[facility] Start: 02-22-2023 End: 02-22-2023 Patient encounter procedure KHURRAM HEBERT MD [facility] Start: 11-30-2022 End: 11-30-2022 ambulatory KHURRAM HEBERT MD Facility:[facility] Start: 11-30-2022 End: 11-30-2022 Patient encounter procedure KHURRAM HEBERT MD [facility] Start: 11-09-2022 End: 11-09-2022 ambulatory KHURRAM HEBERT MD Facility:[facility] Start: 11-09-2022 End: 11-09-2022 SAME DAY STAY KHURRAM HEBERT MD [facility] Start: 10-12-2022 End: 10-12-2022 ambulatory KHURRAM HEBERT MD Facility:[facility] Start: 12-03-2021 End: 12-03-2021 Patient encounter procedure HANNA BARON MD [facility] Start: 10-20-2021 End: 10-20-2021 SAME DAY STAY CYNTHIA KENNEDY MD [facility] Start: 10-17-2021 End: 10-17-2021 Patient encounter procedure CYNTHIA KENNEDY MD [facility] Start: 09-23-2021 End: 09-23-2021 Patient encounter procedure CYNTHIA KENNEDY MD [facility] Start: 06-09-2021 End: 06-09-[address] HEBER ELIZABETH MD [facility] Procedures Date Procedure Procedure Detail Performing Clinician Start: 05-19-2024 PM Inj Spine L/S With Imaging SN 1 REGINA COLEY MD Comment on above: auto-populated from documented surgical case Start: 01-07-2024 PM Inj Spine L/S With Imaging SN 1 REGINA COLEY MD Comment on above: auto-populated from documented surgical case Start: 01-07-2024 PM Inj Spine L/S With Imaging SN 2 REGINA COLEY MD Comment on above: auto-populated from documented surgical case Start: 11-09-2022 PM Inj Spine L/S With Imaging SN (Bilateral) 1 KHURRAM HEBERT MD Comment on above: auto-populated from documented surgical case Start: 11-09-2022 PM Inj Spine L/S With Imaging SN (Bilateral) 2 REGINA COLEY MD Comment on above: auto-populated from documented surgical case Start: 11-09-2022 PM Inj Spine L/S With Imaging SN (Bilateral) 3 REGINA COLEY MD Comment on above: auto-populated from documented surgical case Start: 10-23-2021 Electrocardiographic monitor and recorder, device (physical object) HANNA BARON MD Comment on above: 48 hour - Unremarkable monitor. Start: 10-20-2021 Cardiac catheterization HANNA BARON MD Comment on above: SUMMARY: Aortic valve: There is mild to moderate stenosis. IMPRESSIONS: Minor luminal irregularities. False positive stress test. Mild - moderate . 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 There was bowel loop adjacent to the inferior/inferolateral wall which could have been causing an artifiact. Start: 10-21-2018 Ultrasound peripheral vascular flow study, arterial and venous DR HEBER ELIZABETH MD Comment on above: No evidence of deep vein thrombosis in R ight lower extremity Start: 06-13-[address] HEBER CONLEY MD Start: 06-07-[address] HEBER ELIZABETH MD Comment on above: EF 55-60% Start: 05-17-2018 ECG: presence findings (finding) DR FRANCA ELIZABETH MD Start: 04-05-2006 History of operative procedure on lumbar spinal structure DR HEBER ELIZABETH MD Start: 04-05-1999 History of operative procedure on lumbar spinal structure DR HEBER ELIZABETH MD Start: 04-05-[address] HEBER ELIZABETH MD Bilateral replacemen t of knee joints DR HEBER ELIZABETH MD Plan of Treatment Date Care Activity Detail Author [facility] Immunizations Immunization Date Immunization Notes Care Provider [facility] 06-01-2024 zoster vaccine recombinant QUOC KIKE USER SUPPORT SPECIALIST-CHIEF PRIVACY OFFICER [facility] 12-14-2023 influenza virus vacc ine, unspecified formulation QUOC KIKE USER SUPPORT SPECIALIST-CHIEF PRIVACY OFFICER [facility] 12-14-2023 SARS-CoV-2 (COVID-19 ) mRNA-1273 vaccine QUOC KIKE USER SUPPORT SPECIALIST-CHIEF PRIVACY OFFICER [facility] 01-19-2023 influenza virus vacc ine, unspecified formulation RYLAND STOUT MD [facility] 01-19-2023 SARS-CoV-2 (COVID-19 ) [id number] RYLAND STOUT MD [facility] 04-28-2022 pneumococcal polysaccharide vaccine, 23 valent; Translations: [Pneumovax 23] KHURRAM HEBERT MD [facility] 01-27-2022 influenza virus vacc ine, unspecified formulation KHURRAM HEBERT MD [facility] 01-06-2022 SARS-CoV-2 (CV19)mRNA-1273 bivalent vac KHURRAM HEBERT MD [facility] 08-14-2021 SARS-CoV-2 (COVID-19 ) mRNA-1273 vaccine KHURRAM HEBERT MD [facility] 01-28-2021 influenza, high dose seasonal, preservative-free; Translations: [Fluad Quadrivalent PF ] DR HEBER ELIZABETH MD [facility] 12-19-2020 SARS-CoV-2 (COVID-19 ) mRNA-1273 vaccine KHURRAM HEBERT MD [facility] 06-19-2020 SARS-CoV-2 (COVID-19 ) mRNA-1273 vaccine KHURRAM HEBERT MD [facility] Comment on above: Result Comment: 2022: [id number] 04-25-2020 SARS-CoV-2 (COVID-19 ) mRNA-[address] HEBER ELIZABETH MD [facility] 01-24-2020 influenza virus vacc ine, unspecified formulation DR HEBER ELIZABETH MD [facility] 02-02-2019 influenza, injectabl e, quadrivalent, preservative free; Translations: [Fluarix PF Quadrivalent ] DR HEBER ELIZABETH MD [facility] 01-18-2018 influenza virus vacc ine, unspecified formulation DR HEBER ELIZABETH MD [facility] 02-09-2017 influenza virus vacc ine, unspecified formulation DR HEBER ELIZABETH MD [facility] 01-04-2016 influenza virus vacc ine, unspecified formulation DR HEBER ELIZABETH MD [facility] 12-30-2015 influenza virus vacc ine, unspecified formulation DR HEBER ELIZABETH MD [facility] 01-18-2015 influenza virus vacc ine, unspecified formulation DR HEBER ELIZABETH MD [facility] 01-03-2015 influenza virus vacc ine, unspecified formulation DR HEBER ELIZABETH MD [facility] 06-12-2014 pneumococcal conjuga te vaccine, [address] HEBER ELIZABETH MD [facility] 12-22-2013 influenza virus vacc ine, unspecified formulation DR HEBER ELIZABETH MD [facility] 08-18-2013 tetanus toxoid, redu alberta diphtheria toxoid, and acellular pertussis vaccine, adsorbed DR HEBER ELIZABETH MD [facility] 12-27-2012 influenza virus vacc ine, unspecified formulation DR HEBER ELIZABETH MD [facility] 01-25-2012 influenza virus vacc ine, unspecified formulation DR HEBER ELIZABETH MD [facility] 12-30-2005 hepatitis B pediatri c vaccine DR HEBER ELIZABETH MD [facility] 07-29-2005 adenovirus, type 4 a nd type 7, live, oral DR HEBER ELIZABETH MD [facility] 07-29-2005 hepatitis B pediatri c vaccine DR HEBER ELIZABETH MD [facility] 06-24-2005 hepatitis B pediatri c vaccine DR HEBER ELIZABETH MD [facility] 06-24-[address], inactivated [address] HEBER ELIZABETH MD [facility] 08-14-2004 pneumococcal polysaccharide vaccine, [address] HEBER ELIZABETH MD [facility] Payers Date Payer Category Payer Self-pay 2024 Private Health Insurance [id number] 2012 Private Health Insurance [id number] 1936 Unknown [id number] 2.16.8 40.1.964556.3.579.2. 1936 Unknown [id number] 2.16.8 40.1.851264.3.579.2 1936 Unknown [id number] 2.16.8 40.1.651345.3.579.2 1936 Unknown [id number] 2.16.8 40.1.490332.3.579.2 1936 Unknown [id number] 2.16.8 40.1.333814.3.579.2 1936 Unknown [id number] 2.16.8 40.1.055136.3.579.2.627 1936 Unknown [id number] 2.16.8 40.1.344969.3.579.2.627 1936 Unknown [id number] 2.16.8 40.1.793507.3.579.2.627 1936 Unknown [id number] 2.16.8 40.1.498431.3.579.2.7 1936 Unknown [id number] 2.16. 840.1.094589.3.579.2. 1936 Unknown [id number] 2.16.8 40.1.170271.3.579.2. 1936 Unknown [id number] 2.16.8 40.1.559054.3.579.2.7 1936 Unknown [id number] 2.16.8 40.1.908975.3.579.2.7 1936 Unknown [id number] 2.16.8 40.1.302604.3.579.2.627 1936 Unknown [id number] 2.16.8 40.1.995367.3.579.2.627 1936 Unknown [id number] 2.16.8 40.1.755275.3.579.2.627 Unknown [id number] 2.16.8 40.1.526127.3.579.2.462 Unknown [id number] 2.16.8 40.1.799005.3.579.2.462 Unknown [id number] 2.16.8 40.1.193332.3.579.2.462 Social History Date Type Detail Facility Start: 02-02-2019 End: 11-10-2024 Never smoked tobacco (finding) [facility] Comment on above: No smoke exposure Start: 1935 Sex Assigned At Female A [facility] Sexual Orientation [facility] Start: 02-27-2019 Sex Female (finding) [facility] Functional Status Date Assessment Result Facility 05-19-2024 Functional Status Repositions self [facility] 01-07-2024 Functional Status Standard Safet y Precautions maintained [facility] 01-07-2024 Functional Status Repositions self [facility] 11-09-2022 Functional Status Awake, Resting [facility] 10-20-2021 Functional Status Ambulating in room, Awake [facility] 10-20-2021 Functional Status [facility] 10-20-2021 Functional Status Maintained [facility] Mental Status Date Assessment Result Facility 05-19-2024 Mental Status Oriented x 4 [facility] 01-07-2024 Mental Status Oriented x 4 [facility] 11-09-2022 Mental Status Oriented x 4 [facility] 10-20-2021 Mental Status Orientation Oriented x 4 [facility] 10-20-2021 Mental Status [facility] Clinical Notes 07-15-2021 to 10-11-2024 Note Date & Type Note Facility 10-11-2024 Nurse Progress note patient tolerated prolia injection without signs or symptoms of a reaction Digitally Signed by Bernie Rahman RN on 10/11/2024 01:[address] [facility] 05-19-2024 Hospital Discharg e instructions Patient Education 05/19/2024 12:41:49 Local Anesthesia, Care After Local Anesthesia, Care After This sheet gives you information about how to care for yourself after your procedure. Your health care provider may also give you more specific instructions. If you have problems or questions, contact your health care provider. What can I expect after the procedure? After the procedure, it is common to have: Numbness in the area where you were given local anesthetic medicine. This numbness usually wears off within a few hours. It should be completely gone after 24 hours. Bruising, bleeding, or redness in the area where the medicine was given. Follow these instructions at home: If you had an injection: Check the area where the medicine was injected every day for signs of infection. Check for: ?Redness, swelling, or pain. ?Fluid or blood. ?Warmth. ?Pus or a bad smell. General instructions Follow instructions from your health care provider about how to take care of the area that was numbed. Protect the area from harm until the medicine wears off and you regain full feeling in the area. If you have a wound or incision, keep it clean and dry. Return to your normal activities as told by your health care provider. Ask your health care provider what activities are safe for you. Take pkfn-daa-neuzzwa and prescription medicines only as told by your health care provider. Contact a health care provider if: You have numbness at the procedure site that last more than 24 hours. You have pain at the procedure site that is not controlled with the pain medicine that your health care provider gave you. You have redness or swelling around the procedure site. The injection area feels warm to the touch. You have pus or a bad smell coming from the injection site. You have a fever. Get help right away if: You have trouble breathing. You have chest pain. Summary After the procedure, it is common to have numbness for many hours in the area where you were given local anesthetic medicine. Protect the numbed area from harm until the medicine wears off and you regain full feeling in the area. This information is not intended to replace advice given to you by your health care provider. Make sure you discuss any questions you have with your health care provider. Document Released: 09/10/2017 Document Revised: 03/04/2018 Document Reviewed: 09/10/2017 [employer] Patient Education 2020 [employer]. 05/19/2024 12:41:40 Epidural Steroid Injection Epidural Steroid Injection An epidural steroid injection is a shot of steroid medicine and numbing medicine that is given into the space between the spinal cord and the bones in your back (epidural space). The shot helps relieve pain caused by an irritated or swollen nerve root. The amount of pain relief you get from the injection depends on what is causing the nerve to be swollen and irritated, and how long your pain lasts. You are more likely to benefit from this injection if your pain is strong and comes on suddenly rather than if you have had pain for a long time. Tell a health care provider about: Any allergies you have. All medicines you are taking, including vitamins, herbs, eye drops, creams, and wuuu-cao-ykdjkmq medicines. Any problems you or family members have had with anesthetic medicines. Any blood disorders you have. Any surgeries you have had. Any medical conditions you have. Whether you are or may be . What are the risks? Generally, this is a safe procedure. However, problems may occur, including: Headache. Bleeding. Infection. Allergic reaction to medicines. Damage to your nerves. What happens before the procedure? Staying hydrated Follow instructions from your health care provider about hydration, which may include: Up to 2 hours before the procedure you may continue to drink clear liquids, such as water, clear fruit juice, black coffee, and plain tea. Eating and drinking restrictions Follow instructions from your health care provider about eating and drinking, which may include: 8 hours before the procedure stop eating heavy meals or foods such as meat, fried foods, or fatty foods. 6 hours before the procedure stop eating light meals or foods, such as toast or cereal. 6 hours before the procedure stop drinking milk or drinks that contain milk. 2 hours before the procedure stop drinking clear liquids. Medicine You may be given medicines to lower anxiety. Ask your health care provider about: ?Changing or stopping your regular medicines. This is especially important if you are taking diabetes medicines or blood thinners. ?Taking medicines such as aspirin and ibuprofen. These medicines can thin your blood. Do not take these medicines before your procedure if your health care provider instructs you not to. General instructions Plan to have someone take you home from the hospital or clinic. What happens during the procedure? You may receive a medicine to help you relax (sedative). You will be asked to lie on your abdomen. The injection site will be cleaned. A numbing medicine (local anesthetic) will be used to numb the injection site. A needle will be inserted through your skin into the epidural space. You may feel some discomfort when this happens. An X-ray machine will be used to make sure the needle is put as close as possible to the affected nerve. A steroid medicine and a local anesthetic will be injected into the epidural space. The needle will be removed. A bandage (dressing) will be put over the injection site. What happens after the procedure? Your blood pressure, heart rate, breathing rate, and blood oxygen level will be monitored until the medicines you were given have worn off. Your arm or leg may feel weak or numb for a few hours. The injection site may feel sore. Do not drive for 24 hours if you received a sedative. This information is not intended to replace advice given to you by your health care provider. Make sure you discuss any questions you have with your health care provider. Document Released: 06/28/2008 Document Revised: 03/04/2018 Document Reviewed: 07/07/2016 TabbedOut Patient Education 2020 [employer]. Follow Up Care 05/05/2024 07:29:29 With:REGINA COLEY MD Address: [address] [place] [address] [phone] When: Unknown [facility] 05-19-2024 Note Exam Date Time Procedure Performing Provider Status 05/19/24 2:31 PM XR Fluoro Guide for Therapy Injection Modified [id number] ORIGINAL Images acquired, not reported on this accession number. [facility]02-14-2025 Note Discharge Instructions Thank you for allowing [facility] to assist you with your healthcare needs. The following is importantdischarge information regarding your hospital visit. Your Care Team [employer] APRN-CHIEF PRIVACY OFFICER DR. 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 No one will call you. Allergies Vicodin (Moderate) Nausea Accupril Unknown Crestor cramping acetaminophen-hydrocodone Nausea, Dizziness penicillin quinapril Unknown rosuvastatin Unknown Medications Please ask your primary doctor or pharmacist before taking any other medication not listed, including over the counter drugs, herbal medications, vitamins and or supplements as they may interact withyour home medications. What How Much When Why Instructions Last Dose Unchanged acetaminophen (acetaminophen 500 mg oral tablet) 1 tab(s) by mouth As needed for for pain Unchanged aspirin (aspirin 81 mg oral delayed release tablet) 1 tab(s) by mouth Every day Unchanged atorvastatin (atorvastatin 10 mg oral tablet) 1 tab(s) by mouth Once a day Duration: 90 Days Unchanged calcium-vitamin D (Calcium 600 +D) 2 tab(s) by mouth Every day Unchanged denosumab (Prolia 60 mg/ mL subcutaneous solution) 1 Milliliter Subcutaneous Every 6 months Osteoporosis diagnosis: Osteoporosis (M81.0) Unchanged furosemide (furosemide 20 mg oral tablet) 1 tab(s) by mouth Once a day Duration: 90 Days Unchanged meclizine (meclizine 25 mg oral tablet) 1 tab(s) by mouth Two (2) times a day as needed for for dizziness Unchanged potassium chloride (potassium chloride 10 mEq oral capsule, extended release) 1 cap by mouth Two (2) times a day take with food. Please take this list to your next doctor s visit. Bring all medications you take, including over the counter medications, herbals and other supplements with you to your doctor s visit. Patients and families are reminded to discard old lists and to update any records with all medication providers or retail pharmacies. Education Materials Local Anesthesia, Care After This sheet gives you information about how to care for yourself after your procedure. Your health care provider may also give you more specific instructions. If you have problems or questions, contact your health care provider. What can I expect after the procedure? After the procedure, it is common to have: Numbness in the area where you were given local anesthetic medicine. This numbness usually wears off within a few hours. It should be completely gone after 24 hours. Bruising, bleeding, or redness in the area where the medicine was given. Follow these instructions at home: If you had an injection: Check the area where the medicine was injected every day for signs of infection. Check for: ? Redness, swelling, or pain. ? Fluid or blood. ? Warmth. ? Pus or a bad smell. General instructions Follow instructions from your health care provider about how to take care of the area that was numbed. Protect the area from harm until the medicine wears off and you regain full feeling in the area. If you have a wound or incision, keep it clean and dry. Return to your normal activities as told by your health care provider. Ask your health care provider what activities are safe for you. Take znxx-jbe-pzohohd and prescription medicines only as told by your health care provider. Contact a health care provider if: You have numbness at the procedure site that last more than 24 hours. You have pain at the procedure site that is not controlled with the pain medicine that your health care provider gave you. You have redness or swelling around the procedure site. The injection area feels warm to the touch. You have pus or a bad smell coming from the injection site. You have a fever. Get help right away if: You have trouble breathing. You have chest pain. Summary After the procedure, it is common to have numbness for many hours in the area where you were given local anesthetic medicine. Protect the numbed area from harm until the medicine wears off and you regain full feeling in the area. This information is not intended to replace advice given to you by your health care provider. Make sure you discuss any questions you have with your health care provider. Document Released: 09/10/2017 Document Revised: 03/04/2018 Document Reviewed: 09/10/2017 TabbedOut Patient Education 2020 [employer] Epidural Steroid Injection An epidural steroid injection is a shot of steroid medicine and numbing medicine that is given intothe space between the spinal cord and the bones in your back (epidural space). The shot helps relieve pain caused by an irritated or swollen nerve root. The amount of pain relief you get from the injection depends on what is causing the nerve to be swollen and irritated, and how long your pain lasts. You are more likely to benefit from this injectionif your pain is strong and comes on suddenly rather than if you have had pain for a long time. Tell a health care provider about: Any allergies you have. All medicines you are taking, including vitamins, herbs, eye drops, creams, and lbph-oew-cwutzqn medicines. Any problems you or family members have had with anesthetic medicines. Any blood disorders you have. Any surgeries you have had. Any medical conditions you have. Whether you are or may be . What are the risks? Generally, this is a safe procedure. However, problems may occur, including: Headache. Bleeding. Infection. Allergic reaction to medicines. Damage to your nerves. What happens before the procedure? Staying hydrated Follow instructions from your health care provider about hydration, which may include: Up to 2 hours before the procedure you may continue to drink clear liquids, such as water, clear fruit juice, black coffee, and plain tea. Eating and drinking restrictions Follow instructions from your health care provider about eating and drinking, which may include: 8 hours before the procedure stop eating heavy meals or foods such as meat, fried foods, or fatty foods. 6 hours before the procedure stop eating light meals or foods, such as toast or cereal. 6 hours before the procedure stop drinking milk or drinks that contain milk. 2 hours before the procedure stop drinking clear liquids. Medicine You may be given medicines to lower anxiety. Ask your health care provider about: ? Changing or stopping your regular medicines. This is especially important if you are taking diabetes medicines or blood thinners. ? Taking medicines such as aspirin and ibuprofen. These medicines can thin your blood. Do not take these medicines before your procedure if your health care provider instructs you not to. General instructions Plan to have someone take you home from the hospital or clinic. What happens during the procedure? You may receive a medicine to help you relax (sedative). You will be asked to lie on your abdomen. The injection site will be cleaned. A numbing medicine (local anesthetic) will be used to numb the injection site. A needle will be inserted through your skin into the epidural space. You may feel some discomfort when this happens. An X-ray machine will be used to make sure the needle is put as close as possible to the affected nerve. A steroid medicine and a local anesthetic will be injected into the epidural space. The needle will be removed. A bandage (dressing) will be put over the injection site. What happens after the procedure? Your blood pressure, heart rate, breathing rate, and blood oxygen level will be monitored until themedicines you were given have worn off. Your arm or leg may feel weak or numb for a few hours. The injection site may feel sore. Do not drive for 24 hours if you received a sedative. This information is not intended to replace advice given to you by your health care provider. Make sure you discuss any questions you have with your health care provider. Document Released: 06/28/2008 Document Revised: 03/04/2018 Document Reviewed: 07/07/2016 Elsevier Patient Education 2020 [employer] Additional Information VACCINATE! IT SAVES LIVES! Members of the community who have not yet received the COVID-19 vaccine and would like to receive it can visit one of [facility] vaccine clinics. There are many vaccine clinic locations within the [facility]. For locations and available times, please visit https://gettheshot.coronavirus.[place].gov/. It is important to note that some COVID mobile vaccine clinics are held outdoors and may be canceled in rainy or stormy conditions. To learn more about pediatric vaccinations (ages 5-11), we invite you to visit the [employer] webpage. [email or web address]/[email or web address] [email or web address] learn more about the COVID-19 vaccine, we invite you to visit the CDC website for a list of frequently asked questions.https://www.cdc.gov/coronavirus/2019-ncov/vaccines/faq.html [facility] Patient Portal Access Instructions: Stay connected with your healthcare team and access your personal medical information anytime with the [facility] Patient Portal. Please follow the directions below to create your [facility] account: 1.Access the email account you provided upon registration to the hospital/physician office.2.Look for an invitation email from [facility].3.Open the email and access the invitation link: AcceptInvitation to [employer].4.Fill in the required rodriguez to create your account. To access your account, visit [employer]. Click the blue button labeled Access Patient Portal and then log in with the username and password that you created in the steps above. You will be able to view your test results, lab results, a summary of your visits, upcoming appointments and more. There is also a convenient messaging option where you can send secure messages to your p rovider. In addition, you will have the ability to download any documents or summaries to your computer and/or send the information securely to a physician. Remember that your healthcare information is confidential, so carefully consider who you will allowto register on the [facility] [facility] Patient Portal for access to your information. You can also access the [facility] Patient Portal on the [facility] [email or web address]. Simply click on Patient Portal and then log into your account. If you would like to receive a full copy of your medical records, please contact the [facility] Medical Records Department by calling [phone], Wednesday through Wednesday between 8 a.m. and 4:30 p.m. HOW TO SAFELY DISPOSE OF PRESCRIPTION MEDICATIONS Please use one of the following methods to safely dispose of your unused medications. 1.Use a drug disposal kit: the drug disposal pouch allows you to safely discard your old and unuseddrugs. Ask your nurse to give you one when you are discharged.2.Visit a local take-back location: Many local pharmacies and police departments have programs that collect old and unwanted prescriptiondrugs. Call your local pharmacy or go to http://magnetic.io/6N6Ro7p to find one close to you.3.Make use of household items: Use cat litter or old coffee grounds to dispose medications if other options arenot available. Mix your drugs with these household products, seal them in an airtight container andthrow it into the garbage. Call [facility]: [phone] to be sure your drugs can be disposed of in this way. Some medicines may require a different approach.4.Never flush your medications down the toilet. IF YOU HAVE BEEN PRESCRIBED AN OPIOID FOR PAIN If you have been prescribed an opioid (such as hydrocodone, oxycodone or morphine), it is critical to understand the possible side effects and risks of opioid pain medications. Even when taken as directed, opioids can have several side effects including: Tolerance, meaning you might need to take more of a medication for the same pain relief. Nausea, vomiting and/or constipation. Sleepiness, dizziness, dry mouth, confusion, depression or itching. Physical dependence, meaning you have withdrawal symptoms when a medication is stopped, can develop within a few days. KNOW YOUR RESPONSIBILITIES It is important to know exactly how much and how often to take the opioid pain medications you are prescribed. Never take opioids in higher amounts or more often than prescribed. Do not combine opioids with alcohol or other drugs that cause drowsiness, such as benzodiazepines, also known as benzos, including diazepam and alprazolam, muscle relaxants or sleep aids. Never sell or share prescription opioids. This is illegal. Store opioids in a secure place and out of reach of others (including children, family, friends and visitors). The last page of this document has been signed and retained as a CHART COPY. Signatures Patient Education Materials Local Anesthesia, Care After Epidural Steroid Injection Medication Leaflets My discharge plan and instructions have been reviewed and explained to me and I,DALTONSPURGERLORI understand my current condition and have read and understand these discharge instructions. I have received a written copy of the plan/instructions. If I have questions, I am aware that I should contact my doctor. 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01-02-2025 Nurse Progress note Patient tolerated injection without incident. Patient left the unit without incident. Digitally Signed by Heather Allen RN on 04/06/2024 11:[address] [facility]12-31-2024 Note* Exam Date Time Procedure Performing Provider Status 04/04/24 2:00 PM MRI Brain w/ + w/o Contrast RINA CERDA MD; Auth (Verified) [id number] ORIGINAL HISTORY: Vertigo COMPARISON: No TECHNIQUE: 1. Sagittal and axial T1-weighted images. 2. Axial FLAIR images. 3. Axial T2-weighted and T2*-weighted images. 4. Axial diffusion-weighted images with ADC map. 5. Axial, sagittal and coronal T1-weighted images following uncomplicated administration of intravenous gadolinium contrast. FINDINGS: The ventricles and sulci are mildly enlarged. There are no abnormal intra or extra-axial fluid collections. There is mild punctate and nodular T2 hyperintensity in the cerebral white matter. Goodman-white matter differentiation is maintained. There is no abnormal restriction of diffusion. There is no abnormal enhancement of the brain or its coverings. The paranasal sinuses are clear. IMPRESSION: Mild volume loss and small vessel ischemic disease. Interpreted by: Bartolo Cerda MD Preliminary Report By: Bartolo Cerda MD Electronically signed By Bartolo Cerda MD Dictated Date: 04/04/2024 3:33:36 PM Prelim Date: 04/04/2024 3:36:14 PM Sign Date: 04/04/2024 3:36:14 PM Ordering Provider: [facility]10-04-2024 Hospital Discharge instructions Patient Education 01/07/2024 13:57:47 Trigger Point Injection Trigger Point Injection Trigger points are areas where you have pain. A trigger point injection is a shot given in the trigger point to help relieve pain for a few days to a few months. Common places for trigger points include: The neck. The shoulders. The upper back. The lower back. A trigger point injection will not cure long-term (chronic) pain permanently. These injections do not always work for every person. For some people, they can help to relieve pain for a few days to a few months. Tell a health care provider about: Any allergies you have. All medicines you are taking, including vitamins, herbs, eye drops, creams, and vpcq-skw-qyqdlog medicines. Any problems you or family members have had with anesthetic medicines. Any blood disorders you have. Any surgeries you have had. Any medical conditions you have. What are the risks? Generally, this is a safe procedure. However, problems may occur, including: Infection. Bleeding or bruising. Allergic reaction to the injected medicine. Irritation of the skin around the injection site. What happens before the procedure? Ask your health care provider about: Changing or stopping your regular medicines. This is especially important if you are taking diabetes medicines or blood thinners. Taking medicines such as aspirin and ibuprofen. These medicines can thin your blood. Do not take these medicines unless your health care provider tells you to take them. Taking gmpa-zht-knhnjwi medicines, vitamins, herbs, and supplements. What happens during the procedure? Your health care provider will feel for trigger points. A marker may be used to wainwright the area forthe injection. The skin over the trigger point will be washed with a germ-killing (antiseptic) solution. A thin needle is used for the injection. You may feel pain or a twitching feeling when the needle enters the trigger point. A numbing solution may be injected into the trigger point. Sometimes a medicine to keep down inflammation is also injected. Your health care provider may move the needle around the area where the trigger point is located until the tightness and twitching goes away. After the injection, your health care provider may put gentle pressure over the injection site. The injection site will be covered with a bandage (dressing). The procedure may vary among health care providers and hospitals. What can I expect after treatment? After treatment, you may have: Soreness and stiffness for 1 2 days. A dressing. This can be taken off in a few hours or as told by your health care provider. Follow these instructions at home: Injection site care Remove your dressing as told by your health care provider. Check your injection site every day for signs of infection. Check for: ?Redness, swelling, or pain. ?Fluid or blood. ?Warmth. ?Pus or a bad smell. Managing pain, stiffness, and swelling If directed, put ice on the affected area. ?Put ice in a plastic bag. ?Place a towel between your skin and the bag. ?Leave the ice on for 20 minutes, 2 3 times a day. General instructions If you were asked to stop your regular medicines, ask your health care provider when you may start taking them again. Return to your normal activities as told by your health care provider. Ask your health care provider what activities are safe for you. Do not take baths, swim, or use a hot tub until your health care provider approves. You may be asked to see an occupational or physical therapist for exercises that reduce muscle strain and stretch the area of the trigger point. Keep all follow-up visits as told by your health care provider. This is important. Contact a health care provider if: Your pain comes back, and it is worse than before the injection. You may need more injections. You have chills or a fever. The injection site becomes more painful, red, swollen, or warm to the touch. Summary A trigger point injection is a shot given in the trigger point to help relieve pain for a few days to a few months. Common places for trigger point injections are the neck, shoulder, upper back, and lower back. These injections do not always work for every person, but for some people, the injections can help to relieve pain for a few days to a few months. Contact a health care provider if symptoms come back or they are worse than before treatment. Also,get help if the injection site becomes more painful, red, swollen, or warm to the touch. This information is not intended to replace advice given to you by your health care provider. Make sure you discuss any questions you have with your health care provider. Document Released: 03/10/2012 Document Revised: 05/03/2019 Document Reviewed: 05/03/2019 [employer] Patient Education 2019 [employer]. Follow Up Care 12/31/2023 07:42:05 With:REGINA COLEY MD Address: [address] [place] [id number] [phone] When: Unknown [facility] 10-04-2024 Note ORIGINAL Images acquired, not reported on this accession number.[facility]10-04-2024 Note Discharge Instructions Thank you for allowing [facility] to assist you with your healthcare needs. The following is importantdischarge information regarding your hospital visit. Your Care Team QUOC STOKES USER SUPPORT SPECIALIST-CHIEF PRIVACY OFFICER DR. COLEY What to do next Follow Up Appointments Follow Up with REGINA COLEY MD Where:[address] [place] [phone] Allergies Vicodin (Moderate) Nausea Accupril Unknown Crestor cramping acetaminophen-hydrocodone Nausea, Dizziness penicillin quinapril Unknown rosuvastatin Unknown Medications Please ask your primary doctor or pharmacist before taking any other medication not listed, including over the counter drugs, herbal medications, vitamins and or supplements as they may interact withur home medications. What How Much When Why Instructions Last Dose Unchanged acetaminophen (acetaminophen 500 mg oral tablet) 1 tab(s) by mouth As needed for for pain Unchanged aspirin (aspirin 81 mg oral delayed release tablet) 1 tab(s) by mouth Every day Unchanged atorvastatin (atorvastatin 10 mg oral tablet) 1 tab(s) by mouth Once a day Duration: 90 Days Unchanged biotin (Biotin 5000 mcg oral capsule) 1 cap by mouth Every day Unchanged calcium-vitamin D (Calcium 600 +D) 2 tab(s) by mouth Every day Unchanged denosumab (Prolia 60 mg/ mL subcutaneous solution) 1 Milliliter Subcutaneous Every 6 months Osteoporosis diagnosis: Osteoporosis (M81.0) Unchanged furosemide (furosemide 20 mg oral tablet) 1 tab(s) by mouth Once a day Duration: 90 Days Unchanged ibuprofen (ibuprofen 200 mg oral tablet) 1 tab(s) by mouth Every 6 hours as needed for as needed for pain Unchanged meclizine (meclizine 25 mg oral tablet) 1 tab(s) by mouth Three (3) times a day as needed for for dizziness Unchanged Misc Medication (traMADol HCL 50 MG TABS) Unchanged ondansetron (ondansetron 4 mg oral tablet) 1 tab(s) by mouth Every 8 hours as needed for Nausea/Vomiting Unchanged potassium chloride (potassium chloride 10 mEq oral capsule, extended release) 1 cap by mouth Two (2) times a day take with food. Please take this list to your next doctor s visit. Bring all medications you take, including over the counter medications, herbals and other supplements with you to your doctor s visit. Patients and families are reminded to discard old lists and to update any records with all medication providers or retail pharmacies. Education Materials Trigger Point Injection Trigger points are areas where you have pain. A trigger point injection is a shot given in the trigger point to help relieve pain for a few days to a few months. Common places for trigger points include: The neck. The shoulders. The upper back. The lower back. A trigger point injection will not cure long-term (chronic) pain permanently. These injections do not always work for every person. For some people, they can help to relieve pain for a few days to a few months. Tell a health care provider about: Any allergies you have. All medicines you are taking, including vitamins, herbs, eye drops, creams, and fxlc-cxo-eiekpdp medicines. Any problems you or family members have had with anesthetic medicines. Any blood disorders you have. Any surgeries you have had. Any medical conditions you have. What are the risks? Generally, this is a safe procedure. However, problems may occur, including: Infection. Bleeding or bruising. Allergic reaction to the injected medicine. Irritation of the skin around the injection site. What happens before the procedure? Ask your health care provider about: Changing or stopping your regular medicines. This is especially important if you are taking diabetes medicines or blood thinners. Taking medicines such as aspirin and ibuprofen. These medicines can thin your blood. Do not take these medicines unless your health care provider tells you to take them. Taking amuw-ajt-haxangv medicines, vitamins, herbs, and supplements. What happens during the procedure? Your health care provider will feel for trigger points. A marker may be used to wainwright the area forthe injection. The skin over the trigger point will be washed with a germ-killing (antiseptic) solution. A thin needle is used for the injection. You may feel pain or a twitching feeling when the needle enters the trigger point. A numbing solution may be injected into the trigger point. Sometimes a medicine to keep down inflammation is also injected. Your health care provider may move the needle around the area where the trigger point is located until the tightness and twitching goes away. After the injection, your health care provider may put gentle pressure over the injection site. The injection site will be covered with a bandage (dressing). The procedure may vary among health care providers and hospitals. What can I expect after treatment? After treatment, you may have: Soreness and stiffness for 1 2 days. A dressing. This can be taken off in a few hours or as told by your health care provider. Follow these instructions at home: Injection site care Remove your dressing as told by your health care provider. Check your injection site every day for signs of infection. Check for: ? Redness, swelling, or pain. ? Fluid or blood. ? Warmth. ? Pus or a bad smell. Managing pain, stiffness, and swelling If directed, put ice on the affected area. ? Put ice in a plastic bag. ? Place a towel between your skin and the bag. ? Leave the ice on for 20 minutes, 2 3 times a day. General instructions If you were asked to stop your regular medicines, ask your health care provider when you may start taking them again. Return to your normal activities as told by your health care provider. Ask your health care provider what activities are safe for you. Do not take baths, swim, or use a hot tub until your health care provider approves. You may be asked to see an occupational or physical therapist for exercises that reduce muscle strain and stretch the area of the trigger point. Keep all follow-up visits as told by your health care provider. This is important. Contact a health care provider if: Your pain comes back, and it is worse than before the injection. You may need more injections. You have chills or a fever. The injection site becomes more painful, red, swollen, or warm to the touch. Summary A trigger point injection is a shot given in the trigger point to help relieve pain for a few days to a few months. Common places for trigger point injections are the neck, shoulder, upper back, and lower back. These injections do not always work for every person, but for some people, the injections can help to relieve pain for a few days to a few months. Contact a health care provider if symptoms come back or they are worse than before treatment. Also,get help if the injection site becomes more painful, red, swollen, or warm to the touch. This information is not intended to replace advice given to you by your health care provider. Make sure you discuss any questions you have with your health care provider. Document Released: 03/10/2012 Document Revised: 05/03/2019 Document Reviewed: 05/03/2019 TabbedOut Patient Education 2020 [employer] Additional Information VACCINATE! IT SAVES LIVES! Members of the community who have not yet received the COVID-19 vaccine and would like to receive it can visit one of [facility] vaccine clinics. There are many vaccine clinic locations within the [facility]. For locations and available times, please visit [email or web address].coronavirus.[place].gov/. It is important to note that some COVID mobile vaccine clinics are held outdoors and may be canceled in rainy or stormy conditions. To learn more about pediatric vaccinations (ages 5-11), we invite you to visit the [facility] webpage. [email or web address]/[email or web address]-[email or web address]-[email or web address] [email or web address] learn more about the COVID-19 vaccine, we invite you to visit the CDC website for a list of frequently asked questions.https://www.cdc.gov/coronavirus/2019-ncov/vaccines/faq.html [employer] Patient Portal Access Instructions: Stay connected with your healthcare team and access your personal medical information anytime with the [employer] Patient Portal. Please follow the directions below to create your [employer] account: 1.Access the email account you provided upon registration to the hospital/physician office.2.Look for an invitation email from [facility].3.Open the email and access the invitation link: AcceptInvitation to [facility].4.Fill in the required rodriguez to create your account. To access your account, visit [email or web address]. Click the blue button labeled Access Patient Portal and then log in with the username and password that you created in the steps above. You will be able to view your test results, lab results, a summary of your visits, upcoming appointments and more. There is also a convenient messaging option where you can send secure messages to your p rovider. In addition, you will have the ability to download any documents or summaries to your computer and/or send the information securely to a physician. Remember that your healthcare information is confidential, so carefully consider who you will allowto register on the [facility] Patient Portal for access to your information. You can also access the [facility] Patient Portal on the [facility] [email or web address]. Simply click on Patient Portal and then log into your account. If you would like to receive a full copy of your medical records, please contact the [facility] Medical Records Department by calling [phone], Wednesday through Wednesday between 8 a.m. and 4:30 p.m. HOW TO SAFELY DISPOSE OF PRESCRIPTION MEDICATIONS Please use one of the following methods to safely dispose of your unused medications. 1.Use a drug disposal kit: the drug disposal pouch allows you to safely discard your old and unuseddrugs. Ask your nurse to give you one when you are discharged.2.Visit a local take-back location: Many local pharmacies and police departments have programs that collect old and unwanted prescriptiondrugs. Call your local pharmacy or go to http://Novaled.[employer]/2L1Pq5g to find one close to you.3.Make use of household items: Use cat litter or old coffee grounds to dispose medications if other options arenot available. Mix your drugs with these household products, seal them in an airtight container andthrow it into the garbage. Call [facility]: [phone] to be sure your drugs can be disposed of in this way. Some medicines may require a different approach.4.Never flush your medications down the toilet. IF YOU HAVE BEEN PRESCRIBED AN OPIOID FOR PAIN If you have been prescribed an opioid (such as hydrocodone, oxycodone or morphine), it is critical to understand the possible side effects and risks of opioid pain medications. Even when taken as directed, opioids can have several side effects including: Tolerance, meaning you might need to take more of a medication for the same pain relief. Nausea, vomiting and/or constipation. Sleepiness, dizziness, dry mouth, confusion, depression or itching. Physical dependence, meaning you have withdrawal symptoms when a medication is stopped, can develop within a few days. KNOW YOUR RESPONSIBILITIES It is important to know exactly how much and how often to take the opioid pain medications you are prescribed. Never take opioids in higher amounts or more often than prescribed. Do not combine opioids with alcohol or other drugs that cause drowsiness, such as benzodiazepines, also known as benzos, including diazepam and alprazolam, muscle relaxants or sleep aids. Never sell or share prescription opioids. This is illegal. Store opioids in a secure place and out of reach of others (including children, family, friends and visitors). The last page of this document has been signed and retained as a CHART COPY. Signatures Patient Education Materials Trigger Point Injection Medication Leaflets My discharge plan and instructions have been reviewed and explained to me and I,LORI NOGUERA understand my current condition and have read and understand these discharge instructions. I have received a written copy of the plan/instructions. If I have questions, I am aware that I should contact my doctor. 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08-07-2023 Hospital Discharge instructions Patient Education 11/09/2022 07:29:45 Epidural Steroid Injection, Care After Epidural Steroid Injection, Care After Refer to this sheet in the next few weeks. These instructions provide you with information about caring for yourself after your procedure. Your health care provider may also give you more specific instructions. Your treatment has been planned according to current medical practices, but problems sometimes occur. Call your health care provider if you have any problems or questions after your procedure. What can I expect after the procedure? After your procedure, it is common to feel a little discomfort at the injection site. Follow these instructions at home: For 24 hours after the procedure: ?Avoid using heat on the injection site. ?Do not take a tub bath, and do not soak in water. ?Do not drive if you received a medicine to help you relax (sedative). If directed, put ice on the injection site: ?Put ice in a plastic bag. ?Place a towel between your skin and the bag. ?Leave the ice on for 20 minutes, 2 3 times a day. Return to your normal activities as told by your health care provider. Ask your health care provider what activities are safe for you. You may remove the bandage (dressing) after 24 hours. Take nxrb-jbj-hhzedue and prescription medicines only as told by your health care provider. Keep all follow-up visits as told by your health care provider. This is important. Contact a health care provider if: You have a fever. You continue to have pain and soreness around the injection site, even after taking rmib-png-owgykfo pain medicine. You have severe, sudden, or lasting nausea or vomiting. Get help right away if: You have severe pain at the injection site that is not relieved by medicines. You develop a severe headache or a stiff neck. You become sensitive to light. You have any new numbness or weakness in your legs or arms. You lose control of your bladder or bowel movements. You have trouble breathing. This information is not intended to replace advice given to you by your health care provider. Make sure you discuss any questions you have with your health care provider. Document Released: 07/07/2011 Document Revised: 03/04/2018 Document Reviewed: 07/07/2016 TabbedOut Patient Education 2020 [employer] Follow Up Care 11/04/2022 08:47:52 With:KHURRAM HEBERT Address: [address] [place] [address] [facility] [place] [address] [phone] Business (1) When: only if needed [facility] 08-07-2023 Summary of episode note Discharge Instructions Thank you for allowing [facility] to assist you with your healthcare needs. The following is importantdischarge information regarding your hospital visit. Your Care Team QUOC STOKES APRN-CHIEF PRIVACY OFFICER Your Diagnosis Spinal stenosis What to do next Follow Up Appointments Follow Up with KHURRAM HEBERT When Only if needed Where: [address] [facility] [address] [facility] [place] [address]- [phone] Business (1) Allergies Vicodin (Nausea) Accupril (Unknown) Crestor (cramping) acetaminophen-hydrocodone (Nausea, Dizziness) penicillin quinapril (Unknown) rosuvastatin (Unknown) Medications Please ask your primary doctor or pharmacist before taking any other medication not listed, including over the counter drugs, herbal medications, vitamins and or supplements as they may interact withyour home medications. What How Much When Instructions Last Dose Unchanged acetaminophen (acetaminophen 500 mg oral tablet) 1 tab(s) by mouth As needed for for pain Unchanged aspirin (aspirin 81 mg oral delayed release tablet) 1 tab(s) by mouth Every day Unchanged atorvastatin (atorvastatin 10 mg oral tablet) 1 tab(s) by mouth Once a day Duration: 90 Days Unchanged biotin (Biotin 5000 mcg oral capsule) 1 cap by mouth Every day Unchanged calcium-vitamin D (Calcium 600 +D) 2 tab(s) by mouth Every day Unchanged denosumab (Prolia 60 mg/ mL subcutaneous solution) 1 Milliliter Subcutaneous Every 6 months Unchanged furosemide (furosemide 20 mg oral tablet) 1 tab(s) by mouth Once a day Duration: 90 Days Unchanged gabapentin (gabapentin 300 mg oral capsule) 1 cap by mouth Two (2) times a day Unchanged ibuprofen (ibuprofen 200 mg oral tablet) 1 tab(s) by mouth Every 6 hours as needed for as needed for pain Unchanged metoprolol (Metoprolol Succinate ER 25 mg oral TABLET extended release) 0.5 tab(s) by mouth Once a day Unchanged potassium chloride (potassium chloride 10 mEq oral capsule, extended release) 1 cap by mouth Two (2) times a day take with food. Please take this list to your next doctor s visit. Bring all medications you take, including over the counter medications, herbals and other supplements with you to your doctor s visit. Patients and families are reminded to discard old lists and to update any records with all medication providers or retail pharmacies. Education Materials Epidural Steroid Injection, Care After Refer to this sheet in the next few weeks. These instructions provide you with information about caring for yourself after your procedure. Your health care provider may also give you more specific instructions. Your treatment has been planned according to current medical practices, but problems sometimes occur. Call your health care provider if you have any problems or questions after your procedure. What can I expect after the procedure? After your procedure, it is common to feel a little discomfort at the injection site. Follow these instructions at home: For 24 hours after the procedure: ? Avoid using heat on the injection site. ? Do not take a tub bath, and do not soak in water. ? Do not drive if you received a medicine to help you relax (sedative). If directed, put ice on the injection site: ? Put ice in a plastic bag. ? Place a towel between your skin and the bag. ? Leave the ice on for 20 minutes, 2 3 times a day. Return to your normal activities as told by your health care provider. Ask your health care provider what activities are safe for you. You may remove the bandage (dressing) after 24 hours. Take vuag-wyf-cffnnis and prescription medicines only as told by your health care provider. Keep all follow-up visits as told by your health care provider. This is important. Contact a health care provider if: You have a fever. You continue to have pain and soreness around the injection site, even after taking sgvi-bvr-ljexjxo pain medicine. You have severe, sudden, or lasting nausea or vomiting. Get help right away if: You have severe pain at the injection site that is not relieved by medicines. You develop a severe headache or a stiff neck. You become sensitive to light. You have any new numbness or weakness in your legs or arms. You lose control of your bladder or bowel movements. You have trouble breathing. This information is not intended to replace advice given to you by your health care provider. Make sure you discuss any questions you have with your health care provider. Document Released: 07/07/2011 Document Revised: 03/04/2018 Document Reviewed: 07/07/2016 [employer] Patient Education 2020 [employer] Additional Information VACCINATE! IT SAVES LIVES! Members of the community who have not yet received the COVID-19 vaccine and would like to receive it can visit one of [facility] vaccine clinics. There are many vaccine clinic locations within the [facility]. For locations and available times, please visit [email or web address].gov/. It is important to note that some COVID mobile vaccine clinics are held outdoors and may be canceled in rainy or stormy conditions. To learn more about pediatric vaccinations (ages 5-11), we invite you to visit the [facility] webpage. https://www.[email or web address]/pages/[email or web address]-Vmwevftuwie-Mxdctfsfsr-Qvcoj-Zii stions.htmlTo learn more about the COVID-19 vaccine, we invite you to visit the CDC website for a list of frequently asked questions.https://www.cdc.gov/coronavirus/2019-ncov/vaccines/faq.html [facility] Patient Portal Access Instructions: Stay connected with your healthcare team and access your personal medical information anytime with the [facility] Patient Portal. Please follow the directions below to create your [facility] account: 1.Access the email account you provided upon registration to the hospital/physician office.2.Look for an invitation email from [facility].3.Open the email and access the invitation link: AcceptInvitation to [facility].4.Fill in the required rodriguez to create your account. To access your account, visit [email or web address]. Click the blue button labeled Access Patient Portal and then log in with the username and password that you created in the steps above. You will be able to view your test results, lab results, a summary of your visits, upcoming appointments and more. There is also a convenient messaging option where you can send secure messages to your p rovider. In addition, you will have the ability to download any documents or summaries to your computer and/or send the information securely to a physician. Remember that your healthcare information is confidential, so carefully consider who you will allowto register on the [facility] Patient Portal for access to your information. You can also access the [facility] Patient Portal on the [employer] krzysztof. Simply click on Patient Portal and then log into your account. If you would like to receive a full copy of your medical records, please contact the [facility] Medical Records Department by calling [phone], Wednesday through Wednesday between 8 a.m. and 4:30 p.m. HOW TO SAFELY DISPOSE OF PRESCRIPTION MEDICATIONS Please use one of the following methods to safely dispose of your unused medications. 1.Use a drug disposal kit: the drug disposal pouch allows you to safely discard your old and unuseddrugs. Ask your nurse to give you one when you are discharged.2.Visit a local take-back location: Many local pharmacies and police departments have programs that collect old and unwanted prescriptiondrugs. Call your local pharmacy or go to http://Novaled.[employer] Light[employer]/4W9Ue3r to find one close to you.3.Make use of household items: Use cat litter or old coffee grounds to dispose medications if other options arenot available. Mix your drugs with these household products, seal them in an airtight container andthrow it into the garbage. Call [facility]: [phone] to be sure your drugs can be disposed of in this way. Some medicines may require a different approach.4.Never flush your medications down the toilet. IF YOU HAVE BEEN PRESCRIBED AN OPIOID FOR PAIN If you have been prescribed an opioid (such as hydrocodone, oxycodone or morphine), it is critical to understand the possible side effects and risks of opioid pain medications. Even when taken as directed, opioids can have several side effects including: Tolerance, meaning you might need to take more of a medication for the same pain relief. Nausea, vomiting and/or constipation. Sleepiness, dizziness, dry mouth, confusion, depression or itching. Physical dependence, meaning you have withdrawal symptoms when a medication is stopped, can develop within a few days. KNOW YOUR RESPONSIBILITIES It is important to know exactly how much and how often to take the opioid pain medications you are prescribed. Never take opioids in higher amounts or more often than prescribed. Do not combine opioids with alcohol or other drugs that cause drowsiness, such as benzodiazepines, also known as benzos, including diazepam and alprazolam, muscle relaxants or sleep aids. Never sell or share prescription opioids. This is illegal. Store opioids in a secure place and out of reach of others (including children, family, friends and visitors). The last page of this document has been signed and retained as a CHART COPY. Signatures Patient Education Materials Epidural Steroid Injection, Care After Medication Leaflets My discharge plan and instructions have been reviewed and explained to me and I,LORI NOGUERA understand my current condition and have read and understand these discharge instructions. I have received a written copy of the plan/instructions. If I have questions, I am aware that I should contact my doctor. 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07-18-2022 Hospital Discharge instructions Patient Education 10/20/2021 12:18:13 3- Heart Cath/PCI radial (01/2018) (CUSTOM) HEART CATHETERIZATION/PCI (radial) Discharge Instructions DIET Drink plenty of fluids for the next 48 hours to help your kidneys flush the heart cath dye out of your system ACTIVITY For the next 48 hours: Do not deep bend the wrist Do not lift, push, or pull anything over 5 pounds Do not use the hand/arm to support your weight when rising from a chair or bed Do not drive For the next 7 days: Do not submerse your procedure site in water Do not swim, wash dishes, or take tub baths You may write, eat, type, and shower WOUND CARE Keep the dressing on your procedure site for the next 24 hours and then apply a band-aid for 3-4 days Change the Band-Aid daily or if it gets wet/soiled AFTER YOU GO HOME, CALL YOUR DOCTOR FOR: Any increase in bruising or tenderness from the procedure site Any redness, pus, or other signs of infection at the site A temperature above 100.5 Severe pain at the site DIAL 911 AND RETURN TO THE HOSPITAL FOR: Any bleeding from the procedure site. The site may be bruised or tender, but it should not be bleeding at any time. If your site begins to bleed, hold firm pressure on it and dial 911 to return to the hospital Any increase in swelling at the procedure site. An increase in swelling could mean the area is bleeding under the skin. Hold firm pressure to the site and dial 911 to return to the hospital Document Released: 03/22/2006 Document Revised: 03/08/2013 Document Reviewed: 03/23/2014 ExitCare Patient Information 2015 iPosition. This information is not intended to replace advicegiven to you by your health care provider. Make sure you discuss any questions you have with your health care provider. 10/20/2021 12:17:38 Moderate Conscious Sedation, Adult, Care After Moderate Conscious Sedation, Adult, Care After These instructions provide you with information about caring for yourself after your procedure. Your health care provider may also give you more specific instructions. Your treatment has been plannedaccording to current medical practices, but problems sometimes occur. Call your health care provider if you have any problems or questions after your procedure. What can I expect after the procedure? After your procedure, it is common: To feel sleepy for several hours. To feel clumsy and have poor balance for several hours. To have poor judgment for several hours. To vomit if you eat too soon. Follow these instructions at home: For at least 24 hours after the procedure: Do not: ?Participate in activities where you could fall or become injured. ?Drive. ?Use heavy machinery. ?Drink alcohol. ?Take sleeping pills or medicines that cause drowsiness. ?Make important decisions or sign legal documents. ?Take care of children on your own. Rest. Eating and drinking Follow the diet recommended by your health care provider. If you vomit: ?Drink water, juice, or soup when you can drink without vomiting. ?Make sure you have little or no nausea before eating solid foods. General instructions Have a responsible adult stay with you until you are awake and alert. Take wwfn-wxy-prjlytq and prescription medicines only as told by your health care provider. If you smoke, do not smoke without supervision. Keep all follow-up visits as told by your health care provider. This is important. Contact a health care provider if: You keep feeling nauseous or you keep vomiting. You feel light-headed. You develop a rash. You have a fever. Get help right away if: You have trouble breathing. This information is not intended to replace advice given to you by your health care provider. Make sure you discuss any questions you have with your health care provider. Document Released: 01/10/2014 Document Revised: 03/04/2018 Document Reviewed: 07/11/2016 [employer] Patient Education 2020 [employer]. Follow Up Care 09/19/2021 11:56:38 With:CYNTHIA KENNEDY MD Address: [address] [place] [address] [address] [place] [address]- When:11/19/2021 10:45:00 [facility] 07-18-2022 Summary of episode note Discharge Instructions Thank you for allowing [facility] to assist you with your healthcare needs. The following is importantdischarge information regarding your hospital visit. Your Care Team QUOC STOKES APRN-CHIEF PRIVACY OFFICER What to do next Scheduled Follow-Up Appointments Appointment Type When Where Contact InformationCV OV 11/19/2021 10:45 AM EDT [facility] Follow Up Appointments Follow Up with CYNTHIA KENNEDY MD When 11/19/2021 10:45 AM EDT Where: [address] [place] [address] [address] [place] [address]- The Following Activity and Diet Have Been Ordered for You Discharge Activity - Ordered -- Follow the post-operative/post-procedure activity instructions provided by your physician's office., 10/20/21 11:19:00 EDT Discharge Diet - Ordered -- Follow the post-operative/post-procedure diet instructions provided by your physician's office.,10/20/21 11:19:00 EDT Allergies Vicodin (Nausea) Accupril (Unknown) Crestor (cramping) acetaminophen-hydrocodone (Nausea, Dizziness) penicillin predniSONE (Unknown) quinapril (Unknown) rosuvastatin (Unknown) Medications Please ask your primary doctor or pharmacist before taking any other medication not listed, including over the counter drugs, herbal medications, vitamins and or supplements as they may interact withyour home medications. What How Much When Instructions Last Dose Unchanged acetaminophen (acetaminophen 500 mg oral tablet) 1 tab(s) by mouth As needed for for pain Unchanged aspirin (aspirin 81 mg oral delayed release tablet) 1 tab(s) by mouth Every day Unchanged atorvastatin (atorvastatin 10 mg oral tablet) 1 tab(s) by mouth Once a day Duration: 90 Days Unchanged biotin (Biotin 5000 mcg oral capsule) 1 cap by mouth Every day Unchanged calcium-vitamin D (Calcium 600 +D) 2 tab(s) by mouth Every day Unchanged denosumab (Prolia 60 mg/ mL subcutaneous solution) 1 Milliliter Subcutaneous Every 6 months Unchanged furosemide (furosemide 20 mg oral tablet) 1 tab(s) by mouth Once a day Duration: 90 Days Unchanged ibuprofen (ibuprofen 200 mg oral tablet) 1 tab(s) by mouth Every 6 hours as needed for as needed for pain Unchanged metoprolol (Toprol-XL 25 mg oral tablet, extended release) 0.5 tab(s) by mouth Two (2) times a day Do not crush or chew (controlled release) Unchanged potassium chloride (potassium chloride 20 mEq oral tablet, extended release) 1 tab(s) by mouth Once a day Take with food Please take this list to your next doctor s visit. Bring all medications you take, including over the counter medications, herbals and other supplements with you to your doctor s visit. Patients and families are reminded to discard old lists and to update any records with all medication providers or retail pharmacies. Education Materials HEART CATHETERIZATION/PCI (radial) Discharge Instructions DIET Drink plenty of fluids for the next 48 hours to help your kidneys flush the heart cath dye out of your system ACTIVITY For the next 48 hours: Do not deep bend the wrist Do not lift, push, or pull anything over 5 pounds Do not use the hand/arm to support your weight when rising from a chair or bed Do not drive For the next 7 days: Do not submerse your procedure site in water Do not swim, wash dishes, or take tub baths You may write, eat, type, and shower WOUND CARE Keep the dressing on your procedure site for the next 24 hours and then apply a band-aid for 3-4 days Change the Band-Aid daily or if it gets wet/soiled AFTER YOU GO HOME, CALL YOUR DOCTOR FOR: Any increase in bruising or tenderness from the procedure site Any redness, pus, or other signs of infection at the site A temperature above 100.5 Severe pain at the site DIAL 911 AND RETURN TO THE HOSPITAL FOR: Any bleeding from the procedure site. The site may be bruised or tender, but it should not be bleeding at any time. If your site begins to bleed, hold firm pressure on it and dial 911 to return to the hospital Any increase in swelling at the procedure site. An increase in swelling could mean the area is bleeding under the skin. Hold firm pressure to the site and dial 911 to return to the hospital Document Released: 03/22/2006 Document Revised: 03/08/2013 Document Reviewed: 03/23/2014 ExitCare Patient Information 2015 [employer]Position. This information is not intended to replace advicegiven to you by your health care provider. Make sure you discuss any questions you have with your health care provider. Moderate Conscious Sedation, Adult, Care After These instructions provide you with information about caring for yourself after your procedure. Your health care provider may also give you more specific instructions. Your treatment has been plannedaccording to current medical practices, but problems sometimes occur. Call your health care provider if you have any problems or questions after your procedure. What can I expect after the procedure? After your procedure, it is common: To feel sleepy for several hours. To feel clumsy and have poor balance for several hours. To have poor judgment for several hours. To vomit if you eat too soon. Follow these instructions at home: For at least 24 hours after the procedure: Do not: ? Participate in activities where you could fall or become injured. ? Drive. ? Use heavy machinery. ? Drink alcohol. ? Take sleeping pills or medicines that cause drowsiness. ? Make important decisions or sign legal documents. ? Take care of children on your own. Rest. Eating and drinking Follow the diet recommended by your health care provider. If you vomit: ? Drink water, juice, or soup when you can drink without vomiting. ? Make sure you have little or no nausea before eating solid foods. General instructions Have a responsible adult stay with you until you are awake and alert. Take udxb-cbb-slghmek and prescription medicines only as told by your health care provider. If you smoke, do not smoke without supervision. Keep all follow-up visits as told by your health care provider. This is important. Contact a health care provider if: You keep feeling nauseous or you keep vomiting. You feel light-headed. You develop a rash. You have a fever. Get help right away if: You have trouble breathing. This information is not intended to replace advice given to you by your health care provider. Make sure you discuss any questions you have with your health care provider. Document Released: 01/10/2014 Document Revised: 03/04/2018 Document Reviewed: 07/11/2016 [employer] Patient Education 2020 [employer] Additional Information VACCINATE! IT SAVES LIVES! Members of the community who have not yet received the COVID-19 vaccine and would like to receive it can visit one of [facility] vaccine clinics. There are many vaccine clinic locations within the [facility]. For locations and available times, please visit [email or web address].gov/. It is important to note that some COVID mobile vaccine clinics are held outdoors and may be canceled in rainy or stormy conditions. To learn more about pediatric vaccinations (ages 5-11), we invite you to visit the [facility] webpage. https://www.[email or web address]/pages/[email or web address]-Ecjjyxcgwrc-Phhkztvvwf-Axuak-Ivd stions.htmlTo learn more about the COVID-19 vaccine, we invite you to visit the [employer] website for a list of frequently asked questions. [email or web address]/[email or web address]-[email or web address] _[email or web address]-Questions.pdf [employer] Patient Portal Access Instructions: Stay connected with your healthcare team and access your personal medical information anytime with the [employer] Patient Portal.If you would like a full copy of your medical records, please contact the [facility] Medical Records Department, Wednesday through Wednesday between 8a.m. and 4:30p.m. Please follow the directions below to access the portal: 1.Access the email account you provided upon registration to the hospital.2.Look for an invitation email from [facility].3.Open the email and access the invitation link: Accept Invitation to [employer]4.Fill in the required rodriguez to create your account. Sign into [email or web address] with your username and password that you created in the above steps to stay up to date. You can then view a summary of results, a summary of your visits, and the ability to download your summaries to your computer or send the information securely to a physician. Remember that your healthcare information is confidential, so carefully consider who you will allow to register on the [facility] Patient Portal for access to your information. You can also access the [facility] Patient Portal on the [employer] krzysztof. Simply click on Health Records under [employer] and then click on the [employer] logo. HOW TO SAFELY DISPOSE OF PRESCRIPTION MEDICATIONS Please use one of the following methods to safely dispose of your unused medications. 1.Use a drug disposal kit: the drug disposal pouch allows you to safely discard your old and unuseddrugs. Ask your nurse to give you one when you are discharged.2.Visit a local take-back location: Many local pharmacies and police departments have programs that collect old and unwanted prescriptiondrugs. Call your local pharmacy or go to http://Novaled.[employer]/0M1Vz4l to find one close to you.3.Make use of household items: Use cat litter or old coffee grounds to dispose medications if other options arenot available. Mix your drugs with these household products, seal them in an airtight container andthrow it into the garbage. Call [facility]: [phone] to be sure your drugs can be disposed of in this way. Some medicines may require a different approach.4.Never flush your medications down the toilet. IF YOU HAVE BEEN PRESCRIBED AN OPIOID FOR PAIN If you have been prescribed an opioid (such as hydrocodone, oxycodone or morphine), it is critical to understand the possible side effects and risks of opioid pain medications. Even when taken as directed, opioids can have several side effects including: Tolerance, meaning you might need to take more of a medication for the same pain relief. Nausea, vomiting and/or constipation. Sleepiness, dizziness, dry mouth, confusion, depression or itching. Physical dependence, meaning you have withdrawal symptoms when a medication is stopped, can develop within a few days. KNOW YOUR RESPONSIBILITIES It is important to know exactly how much and how often to take the opioid pain medications you are prescribed. Never take opioids in higher amounts or more often than prescribed. Do not combine opioids with alcohol or other drugs that cause drowsiness, such as benzodiazepines, also known as benzos, including diazepam and alprazolam, muscle relaxants or sleep aids. Never sell or share prescription opioids. This is illegal. Store opioids in a secure place and out of reach of others (including children, family, friends and visitors). The last page of this document has been signed and retained as a CHART COPY. Signatures Patient Education Materials 3- Heart Cath/PCI radial (01/2018) (CUSTOM) Moderate Conscious Sedation, Adult, Care After Medication Leaflets My discharge plan and instructions have been reviewed and explained to me and I,LORI NOGUERA understand my current condition and have read and understand these discharge instructions. I have received a written copy of the plan/instructions. If I have questions, I am aware that I should contact my doctor. Patient/Operations Supervisor Signature: Date/Time: Relationship to Patient: Witness Name/Signature: [id number] + Plan note Future Scheduled Tests Radiology* BD Bone Density DEXA Axial Skeleton 07/15/[address] [facility] Evaluation + Plan note Future Appointments Appointment Date:07/15/2021 02:00:00 PM Scheduled Provider: Location:RAD Appointment Type:BD Bone Density DEXA Axial Skeleton Future Scheduled Tests Radiology* BD Bone Density DEXA Axial Skeleton 07/15/[address] [facility] Evaluation + Plan note Future Appointments Appointment Date:10/20/2021 10:00:00 AM Scheduled Provider: Location:Heart Lab Appointment Type:CV Procedure - Heart Lab/Hybrid OR Future Scheduled Tests Laboratory* Basic Metabolic Panel 09/19/21 * Magnesium Level 09/19/21 * Thyroid Stimulating Hormone 09/19/21 * Complete Blood Count 09/19/21 Radiology* BD Bone Density DEXA Axial Skeleton 07/15/[address] [facility] evaluation + Plan note Future Appointments Appointment Date:10/20/2021 10:00:00 AM Scheduled Provider: Location:[facility] Lab Appointment Type:CV Procedure - Heart Lab/Hybrid OR Appointment Date:11/19/2021 10:45:00 AM Scheduled Provider: Location:[facility] Appointment Type:CV OV Future Scheduled Tests Radiology* BD Bone Density DEXA Axial Skeleton 07/15/[address] [facility] Evaluation + Plan note Future Appointments Appointment Date:11/19/2021 10:45:00 AM Scheduled Provider: Location:[facility] Appointment Type:CV OV Future Scheduled Tests Radiology* BD Bone Density DEXA Axial Skeleton 07/15/21 [facility] evaluation + Plan note Future Appointments Appointment Date:02/22/2023 01:15:00 PM Scheduled Provider:KHURRAM HEBERT MD [facility] Appointment Type:PM OV [facility] evaluation + Plan note Future Appointments Appointment Date:10/04/2023 12:45:00 PM Scheduled Provider:KIMBERLY JAVIER Location:[facility] Appointment Type:PM OV [facility] Evaluation + Plan note Future Appointments Appointment Date:04/06/2024 11:00:00 AM Scheduled Provider: Location:[facility] Appointment Type:INF/OSP Injection - Prolia [facility] evaluation + Plan note Future Appointments Appointment Date:06/02/2024 10:20:00 AM Scheduled Provider:REGINA COLEY MD Location:[facility] Appointment Type:PM OV [facility] evaluation note* Diagnosis Onset Date Resolution Status Admit Date Esophageal dysmotility acute [facility] 2024 2:16pm Regurgitation of food acute Aug ust 2024 2:16pm Chronic lymphocytic leukemia chronic November 13, 2024 2:16pm [facility] Work Phone: Hospital course Narrative No data available for this section [facility] Hospital Discharge instructions No data available for this section [facility] Note* CYNTHIA KENNEDY MD: SIGN, VERIFY Event Display: Cardiac Catheterization -CV [facility] Progress note No data available for this section [facility] Reason for referral (narrative)No reason for referral information [facility] Work Phone: Summary Purpose Family History No Family History Records Found Relationship Condition Age at Onset Recorded Date/T karen mother Hypertension Unknown Cardiac disease Unknown father Cardiac disease Unknown Diabetes mellitus Unknown Advance Directives No Advanced Directives Records FoundNo Advanced Directives Records FoundNo Advanced Directives Records FoundNo Advanced Directives Records FoundNo Advanced Directives Records Found Chief Complaint and Reason for Visit Chief Complaint Admit Date DYSPHAGIA -PREVIOUSLY HAD STRETCHING DON E November 13, 2024 2:16pm Reason for Visit Admit Date Esophageal dysmotility November 13, 2024 2:16pm Regurgitation of food November 13, 2024 2:16pm Chronic lymphocytic leukemia November 2:16pm Additional Source Comments INFORMATION SOURCE (unrecogn ized section and content) DATE CREATED AUTHOR 01/22/2020 [facility] Aixa Maradiaga DATE CREATED AUTHOR AUTHOR'S ORGANIZ ATION 09/29/2023 [facility] ([place]) DATE CREATED AUTHOR AUTHOR'S ORGANIZ ATION 05/10/2024 [facility] DATE CREATED AUTHOR AUTHOR'S ORGANIZ ATION 10/15/2024 [facility] DATE CREATED AUTHOR AUTHOR'S ORGANIZ ATION [facility] Care Team (unrecognized sect ion and content) Personnel Name: KIKE, QUOC S USER SUPPORT SPECIALIST-CHIEF PRIVACY OFFICER Address: Address: [address] [place] [address]- Care Team Personnel Name: QUOC STOKES USER SUPPORT SPECIALIST-CHIEF PRIVACY OFFICER Position: P4 Advanced Practice Nurse Med Service: Employed Provider Member Role: Primary Care Physician Address: Address: [address] [place] [address]- Care Team Related Persons Name: ALEXAURGEPrabhu Crouch Address: Home [address] [place], [place] [id number] [place] Care Team Personnel Name: QUOC STOKES USER SUPPORT SPECIALIST-CHIEF PRIVACY OFFICER Position: P4 Advanced Practice Nurse Med Service: Employed Provider Member Role: Primary Care Physician Address: Address: [address] [place] [address] Care Team Related Persons Name: Prabhu NOGUERA Address: Home [address] [place], [place] [phone] Care Team Personnel Name: QUOC STOKES USER SUPPORT SPECIALIST-CHIEF PRIVACY OFFICER Position: P4 Advanced Practice Nurse Member Role: Primary Care Physician Address: Address: [address] [place] [address]- [place] Care Team Related Persons Name: ALEXAURGEPrabhu Crouch Address: [place] [address] [place], [place] [phone] Patient Care team informatio n (unrecognized section and content) Team Status: Active Member Role/Relationship Status Dates Quoc Stokes NP, COMMERCIAL ENERGY AUDITOR-C Family Provider Active Quoc Stokes NP, COMMERCIAL ENERGY AUDITOR-C Primary Care Provider Active Team Status: Inactive Member Role/Relationship Status Dates Quoc Stokes NP, COMMERCIAL ENERGY AUDITOR-C Primary Care Provider Active Start: November 13, 2024 End: November 13, 2024 Quoc Stokes NP COMMERCIAL ENERGY AUDITOR-C Referring Provider Active Start: November 13, 2024 End: November 13, 2024 EMILIA Martinez Attending Provider Active S tart: November 13, 2024 End: November 13, 2024 Goals (unrecognized section and content) Goals may be documented in a n alternate section FOR RECORDS PERTAINING TO PATIENTS WHO ARE OR HAVE BEEN ENROLLED IN A CHEMICAL DEPENDENCY/SUBSTANCEABUSE PROGRAM, SOME INFORMATION MAY BE OMITTED. This clinical summary was aggregated from multiple sources. Caution should be exercised in using it in the provision of clinical care. This summary normalizes information from multiple sources, and as a consequence, information in this document may materially change the coding, format and clinical context of patient data. In addition, data may be omitted in some cases. CLINICAL DECISIONS SHOULD BE BASED ON THE PRIMARY CLINICAL RECORDS. [employer] [facility] provides no warranty or guarantee of the accuracy or completeness of information in this document.
== END | disposition home or self-care (01) ==
PROVIDERS: PCP Nurse Practitioner Primary Care
DX: C91.10 Chronic lymphocytic leukemia of B-cell type not having achieved remission (principal); K22.4 Dyskinesia of esophagus; R11.10 Vomiting, unspecified
CPT/HCPCS: 74230; 92611

== ENCOUNTER 2024-11-29 12:44 | Outpatient (RCR) | payer MEDICARE, SELFPAY ==
--- NOTE | 2024-11-29 15:35 | HP.SP.REEV ---
Visit History Visit Info Date of Eval: 11/29/24 Today is Visit #: 1 Ship Washer: KIMANI History Attending Doctor: RUIZ Referring Doctor: RUIZ Reason for Referral: OROPHARYNGEAL DYSPHAGIA/RX SCANNED IN Medical Diagnosis: Oropharyngeal dysphagia R13.12; Esophageal dysmotility K22.4 Date of Onset of Diagnosis: 11/23/2024 Previous speech therapy: No Other Relevant Medical History/Diagnoses/Surgery: Pt presented to [facility] to establish care for management of swallowing difficulty, esophageal dysmotility, and regurgitation of food. ?History of last EGD with Dr. Saldana, done on 06.13.2018. 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 Random tissue biopsies taken. Pathology demonstrated squamous esophageal mucosa without significant microscopic pathology.? Patient reported increased difficulty w/ chicken (white meat) and bun. Pt was recommended for omeprazole, MBSS, and EGD. MBSS was completed 11/23/2024. Prior to MBSS, pt and daughter provided additional hx re: hx of swallowing difficulty: Pt reports vomiting solids, undigested. If using liquid wash, she feels the liquids ?sit on top? of the foods, and they are vomited, as well. Swallowing difficulty occurs every few days. Pt has never choked, but feels fearful of choking. Pt avoids eating chicken, pulled pork, and bread. 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 Hx of PNA >10 years ago. MBSS revealed the following diagnosis, impressions, and recommendations... Diagnosis: Esophageal dysphagia R13.14; Mild-moderate oropharyngeal dysphagia R13.12 MBS Impressions: The oral phase is primarily marked by... -Decreased bolus control noted w/ posterior loss of >1/2 of sequential sips of thin liquids to the pyriform sinuses. The pharyngeal phase is primarily marked by... -Delayed swallow onset. -Decreased airway closure due to decreased laryngeal elevation and anterior hyoid excursion resulting in aspiration of thin liquids via cup w/ delayed, reflexive cough. -Mildly decreased TB retraction and pharyngeal stripping wave w/ trace-mild pharyngeal residues. The esophageal phase is primarily marked by... -Retention of pudding in the middle and lower esophagus w/ lower esophagus appearing very narrow. Liquid wash did not fully clear barium. Continued retention of barium in the middle and lower esophagus w/ retrograde flow. -Retention of cookie in the middle and lower esophagus. Liquid wash resulted in retrograde flow to the upper esophagus. After second liquid wash, retention in the middle and lower esophagus. Recommendations Diet: Soft and Bite Sized Textures and Thin Liquids Compensatory Strategies: Small Bites, Small Sips (Sips 1 at a time, Hard swallows), Slow Rate, Alternate bites/solids and sips/liquids (1-2 sips after each bite) and Sitting upright (During and 60min after meals) Recommend Repeat Modified Barium Swallow: TBD Need for Skilled Speech Therapy Services: Yes Comment: -Train the patient in use of strategies to decrease risk for aspiration and reflux aspiration. -Ongoing assessment of diet tolerance of recommended textures. Trial easy to chew and regular textures after EGD w/ CROWN BUFFER to consider diet advancement. -Train the patient in oropharyngeal exercise program to improve bolus control, airway closure, swallow onset, and pharyngeal motility (Becky, Effortful, Cristy, lingual resistance). Recommended Referrals: GI Consult (Continue to follow w/ GI for management of esophageal dysmotility.) Education Completed: 1. Described result of evaluation., 2. Pt understands evaluation & agrees with goals and treatment plan., 4. Family/caregivers understand evaluation & agree w/ goals & tx plan. and 7. Pt requires further education on strategies & risks. Pt now presents for OP speech therapy evaluation to address oropharyngeal dysphagia and aspiration risk. PMH: Hypogammaglobulinemia, HTN, DM, CLL (follows w/ Dr. Delaney), Esophageal dysmotility, Regurgitation of food ? See EMR for full PMH. Smoking Status: Never smoker Pain Is pain an issue with your current prescribed condition?: No Personal Preferred language: Guatemalan Patient Allergies Allergies Allergies: Allergies Penicillins (PCN) Adverse Reaction (Intermediate, Verified 11/13/24 14:26) Pain in joints Subjective Dysphagia Symptoms Reported Symptoms/Problems with: Difficulty Swallowing Pills, Food gets stuck and Hx of Aspiration Current Diet Solids Current Diet: Soft Current Diet Liquids Current Liquids: Thin Comments Patient report: -: Since the swallow study, no gagging, no vomiting or regurgitation, and no coughing w/ po intake. Pt historically has trouble w/ medications, but mashes banana and then takes the pill w/ the banana to help clear the pill. Objective Dysphagia Administered by Administered by: Self Thin Liquids Administred via: Cup Oral Transit: Delay > 1 seconds Bolus clearance: fully cleared Cough: none observed/unable to assess Comments: Pt consumed sips of thin water w/ mild delay, no overt s/s of aspiration, audible swallows likely due to pt's use of effortful swallow w/ liquids. Soft & Bite sized (Mechanical) Administered via: Spoon Oral Transit: Delay > 1 seconds Bolus clearance: fully cleared Cough: immediate Comments: The patient consumed soft and bite size peaches w/ timely mastication, but coughing after 1 large bite w/ pt admitting to taking the bite too quickly. All additional bites completed w/ no overt s/s of aspiration. Regular Oral Preparation: WNL Bolus clearance: fully cleared Cough: none observed/unable to assess Comments: Trialed regular textured sheila butter w/ timely mastication, very small bites, no overt s/s of aspiration, no sensation of retention, and independent use of liquid wash (single sips) following almost every bite. Diet Texture Recommendations Solids: Easy to Chew (Level 7) Liquids: Thin (Level 0) Other: Small Bites, Small Sips (Sips 1 at a time, Hard swallows), Slow Rate, Alternate bites/solids and sips/liquids (1-2 sips after each bite) and Sitting upright (During and 60min after meals). If sensation of retention does not clear w/ use of thin liquid wash, stop meal and resume at a later time to allow time for esophageal clearance. Results Swallowing Within Normal Limits: Yes Swallowing Diagnosis: Oropharyngeal Phase Dysphagia (R13.12) Additional: esophageal dysphagia R13.14 per MBSS PARTS SALESMAN V Trigeminal Nerve V Trigeminal Nerve Response: Intact VII Facial Nerve VII Facial Nerve Result: Intact X Vagus Nerve X Vagus Nerve Result: Intact XII Hypoglossal Nerve XII Hypoglossal Nerve Result: Impaired Comment:: Mild, generalized weakness of tongue in all directions Swallowing Performance Scale Swallowing Performance Scale Swallowing Performance Scale Result: 4 Mild to Moderate Reference: Neuro-QoL instrument Radiation Oncology Patient FOIS Functional Oral Intake Scale Total oral diet with multiple consistencies, but requiring special preparation or compensations: Level 5 Other Other EAT-10: -: Eating Assessment Tool (EAT-10) = 10. Plan Plan Plan: Will recommend the patient for outpatient dysphagia therapy to address mild-moderate oropharyngeal dysphagia. Pt has known esophageal dysmotility and esophageal dysphagia, as well. POC to include training in strategies to decrease risk for aspiration and reflux aspiration, as well as to implement oropharyngeal exercise program. Without ST services, the patient is at increased risk for aspiration and aspiration-related illness. Recommendations Treatment Warranted: Yes Treatment Warranted: Dysphagia Progress Prognosis: Good Frequency Frequency: Every Other Week Duration: 4-6 Months Goals that are Established Determination:: Goals will be added/modified as deemed necessary and appropriate. Therapy will be discontinued when results of re-evaluation indicate therapy is no longer needed or lack of progress has been documented. Goal #1-5 Goal #1: The patient will consume LRD textures w/o s/s of aspiration with 90% acc with minimal verbal cues for use of strategies to facilitate safe po intake. Goal #2: The patient will verbalize awareness of lifestyle strategies to decrease risk for reflux independently to decrease pt's risk for reflux aspiration. Goal #3: The patient will complete oropharyngeal exercises X10-15 reps, 3-5X/day w/ minimal verbal cues to promote improved bolus control, pharyngeal motility, and airway closure during the swallow for safe po intake (lingual resistance, effortful, Becky, effortful breath hold and swallow). Education Patient has Indicated that the Following The Patient has indicated that they have no educational or learning abilities that may effect their care.: Yes Patient Instruction Patient Education: Diagnosis, Treatment Plan, Goals, Diet Level and Home Exercise Program Other Education: Trained pt in oropharyngeal exercise program. Pt demonstrated lingual resistance X7 reps, Becky X7 reps, Effortful swallow X5 reps, and Effortful breath hold and swallow X5 reps. Pt unable to complete Cristy despite moderate verbal cues and models. Person Taught: Patient Teaching Method: Discussion, Demonstration and Handout Response to teaching: Return Demonstration, Verbalize Understanding and Reinforcement Needed
--- NOTE | 2025-01-12 15:26 | HP.SP.DC ---
ST Discharge Summary Discharged: Discharge: Pt's called. Pt has been completing oropharyngeal exercises at home. Her swallowing has improved since EGD past month, as well. They do not wish to pursue additional dysphagia treatment at this time. The patient was a pleasure to work with. Please re-consult if concern for worsening swallow function in the future.
== END 2024-11-29 19:00 | disposition home or self-care (01) ==
LOC: SP 12:44
PROVIDERS: PCP Nurse Practitioner Primary Care
DX: R13.12 Dysphagia, oropharyngeal phase (principal); K22.4 Dyskinesia of esophagus
CPT/HCPCS: 92610

== ENCOUNTER 2024-12-13 05:58 | Day surgery (SDC) | payer MEDICARE, SELFPAY ==
--- NOTE | 2024-12-11 16:50 | PAT.ANESEVAL ---
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 When Was Last Pacemaker Check QUESTION #4 FULL TEXT: You/Your Family Experience fever (hyperthermia) with Anesthesia Last Oral Intake Last Oral intake: Last Oral Intake NPO since Meds taken in AM with sips of water? Meds patient instructed to take am of surgery PONV PONV - thermodynamics professor: PONV - thermodynamics professor Female Yes 12/11/24 08:59 HX of Motion Sickness No 12/11/24 08:59 HX of N/V After Surgery No 12/11/24 08:59 Non-Smoker Yes 12/11/24 08:59 Duration of Surgery greater No 12/11/24 08:59 than 60 minutes Number of Risk Factors 2 12/11/24 08:59 PONV Score Moderate Risk 12/11/24 08:59 Height & Weight Height & Weight: Anesthesia: Height & Weight Height 5 ft 11/10/24 07:13 Respiratory Assessment Respiratory Assessment - thermodynamics professor: Respiratory Tract Infection Hx - thermodynamics professor Hx Respiratory Tract Infection No 12/11/24 08:59 STOP Sleep Apnea STOP Sleep Apnea - thermodynamics professor: STOP Sleep Apnea - thermodynamics professor Hx Hypertension Yes: NO MEDS PRESENTLY 12/11/24 08:59 Hx Sleep Apnea No 12/11/24 08:59 CPAP BIPAP Do you snore loudly (louder No 12/11/24 08:59 than talking or can be heard Do you often feel tired/ No 12/11/24 08:59 fatigued/ sleepy during daytime? Has anyone observed you stop No 12/11/24 08:59 breathing during sleep? STOP Results Negative 12/11/24 08:59 QUESTION #5 FULL TEXT : Do you snore loudly (louder than talking or can be heard through closed doors)? 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 Specify any problems Hx of Preganancy in last 3 No 12/11/24 08:59 Months Nurse Filling Out Transfusion VCHRISTIN 12/11/24 08:59 & Questions: Date: 12/11/24 12/11/24 08:59 Time: 09:12/11/24 08:59 Patient unable to answer at this time (ie. confused, unrespo /Reproduction History /Reproductive History - thermodynamics professor: /Reproductive Hx- thermodynamics professor Hx Now No 12/11/24 08:59 Gestational Age (in weeks): EDC: Hx Hx Para Hx Section SAB No 12/11/24 08:59 PFS Medical History (Updated 12/11/24 @ 08:59 by Marguerite Onofre) Wears hearing aid Post-menopausal Cancer Rash Arthritis Easy bruising High cholesterol History of leukemia Back pain Injury of back Injury of head and neck Difficulty swallowing Non-smoker History of pain when walking History of edema Cardiology follow-up encounter Hypogammaglobulinemia Hypertension Diabetes mellitus Home Medications ?Medication ?Instructions ?Recorded ?Last Taken ?Type Aspir-Low 81 mg PO DAILY 07/01/16 Unknown History Calcium Carb/Vitamin D 2 tab PO DAILY 07/01/16 Unknown History furosemide 20 mg tablet 20 mg PO DAILY 07/01/16 Unknown History atorvastatin 10 mg tablet 10 mg PO DAILY 08/04/22 Unknown History potassium chloride 20 mEq 20 meq PO BID 08/04/22 Unknown History tablet,extended release(part/cryst) omeprazole 20 mg capsule,delayed 20 mg PO BID #60 caps 11/13/24 Unknown Rx release biotin 5 mg tablet 5 mg PO DAILY 12/11/24 Unknown History denosumab 60 mg/mL subcutaneous 60 mg subcut .QEVERY 6 MONTHS 12/11/24 Unknown History syringe (Prolia) meclizine 25 mg tablet 25 mg PO BID PRN PRN motion 12/11/24 Unknown History sickness turmeric 400 mg capsule 400 mg PO DAILY 12/11/24 Unknown History Allergy/AdvReac Type Severity Reaction Status Date / Time Penicillins (PCN) AdvReac Intermediate Pain in Verified 12/11/24 08:44 joints Family History Mother Hypertension Heart disease Father Heart disease Diabetes Surgical History (Updated 12/11/24 @ 08:59 by Marguerite Onofre) History of cardiac catheterization History of pituitary surgery History of back surgery History of bilateral knee replacement Social History Smoking Status: Never smoker Audit: Pertinent Findings Pertinent Findings Stress test pertinent findings: Stress test 05/15/2020. Uneventful Lexiscan infusion. 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 LVEF 63% Heart catheterization pertinent findings: Heart cath 10/20/2021. Left main there is no evidence of disease. LAD there are minor luminal irregularities. Left circumflex there are minor luminal irregularities. Right coronary there are minor luminal irregularities. Aortic valve there is mild to moderate stenosis. Consult pertinent findings: Cardiology note 11/19/2021. Catheterization from October 2021 reviewed minor luminal irregularities. Cardiac cath did not show any significant abnormalities except for mild to moderate aortic stenosis. Recommendation Anesthesia Recommendation Anesthesia recommendation: OPTIMIZED for anesthesia
[2024-12-13] VITALS (9 sets, daily range): BP systolic 113–192; BP diastolic 60–73; PULSE 61–79; RESP 14–17; TEMP 36.2–36.9; O2SAT 93–99; BMI 38.2
--- OUTSIDE RECORDS SUMMARY | 2024-12-13 06:00 | XMS RPT_ITS | CCD ---
Author Organization [facility] Care Team Providers Care Spring Repairer Helper Hand Name Role Phone SHERRI COLORECTAL SURGEON-EXTRACORPOREAL CIRCULATION SPECIALIST, LENORA S Primary Care Physicia n [place], KHURRAM Phillips Attending Unavailable SHERRI COLORECTAL SURGEON-EXTRACORPOREAL CIRCULATION SPECIALIST, LENORA S Primary Care Unava angeles HEBERT MD, KHURRAM Phillips Attending Unavailable SHERRI COLORECTAL SURGEON-EXTRACORPOREAL CIRCULATION SPECIALIST, LENORA S Primary Care Unava KHURRAM Duncan MD Attending Unavailable SHERRI COLORECTAL SURGEON-EXTRACORPOREAL CIRCULATION SPECIALIST, LENORA S Primary Care Unava ilable SHERRI COLORECTAL SURGEON-EXTRACORPOREAL CIRCULATION SPECIALIST, LENORA S Primary Care Unava ilable SHERRI COLORECTAL SURGEON-EXTRACORPOREAL CIRCULATION SPECIALIST, LENORA S Attending Unava ilable SHERRI COLORECTAL SURGEON-EXTRACORPOREAL CIRCULATION SPECIALIST, LENORA S Primary Care Unava ilable SHERRI COLORECTAL SURGEON-EXTRACORPOREAL CIRCULATION SPECIALIST, LENORA S Attending Unava KHURRAM Duncan MD Attending Unavailable SHERRI COLORECTAL SURGEON-EXTRACORPOREAL CIRCULATION SPECIALIST, LENORA S Primary Care Unava ilKHURRAM Espinal MD Attending Unavailable SHERRI COLORECTAL SURGEON-EXTRACORPOREAL CIRCULATION SPECIALIST, LENORA S Primary Care Unava ilable SHERRI COLORECTAL SURGEON-EXTRACORPOREAL CIRCULATION SPECIALIST, LENORA S Primary Care Unava RYLAND Jay MD Attending Unavailable MACO COLORECTAL SURGEON-EXTRACORPOREAL CIRCULATION SPECIALIST, SKYLA Attending Unavailab le SHERRI COLORECTAL SURGEON-EXTRACORPOREAL CIRCULATION SPECIALIST, LENORA S Primary Care Unava ilable SHERRI COLORECTAL SURGEON-EXTRACORPOREAL CIRCULATION SPECIALIST, LENORA S Primary Care Unava ilBERLIN Thompson MD Attending Unavailable SHERRI COLORECTAL SURGEON-EXTRACORPOREAL CIRCULATION SPECIALIST, LENORA S Primary Care Unava ilable SHERRI COLORECTAL SURGEON-EXTRACORPOREAL CIRCULATION SPECIALIST, LENORA S Attending Unava ilable SHERRI COLORECTAL SURGEON-EXTRACORPOREAL CIRCULATION SPECIALIST, LENORA S Primary Care Unava ilable SHERRI COLORECTAL SURGEON-EXTRACORPOREAL CIRCULATION SPECIALIST, LENORA S Attending Unava ilable SHERRI COLORECTAL SURGEON-EXTRACORPOREAL CIRCULATION SPECIALIST, LENORA S Attending Unava ilable SHERRI COLORECTAL SURGEON-EXTRACORPOREAL CIRCULATION SPECIALIST, LENORA S Primary Care Unava ilable BRIJESH LAKE, REGINA M Attending Unavailable SHERRI COLORECTAL SURGEON-EXTRACORPOREAL CIRCULATION SPECIALIST, LENORA S Primary Care Unava ilable BRIJESH LAKE, REGINA M Attending Unavailable SHERRI COLORECTAL SURGEON-EXTRACORPOREAL CIRCULATION SPECIALIST, LENORA S Primary Care Unava ilable RYLAND STOUT MD Attending Unavailable SHERRI COLORECTAL SURGEON-EXTRACORPOREAL CIRCULATION SPECIALIST, LENORA S Primary Care Unava ilable [place] MARKETING SALES REPRESENTATIVE-C, Lenora Primary Care Provider [phone] Sherri MARKETING SALES REPRESENTATIVE-C, Lenora Referring Provider [phone] Cliff MARKETING SALES REPRESENTATIVE-C, Liz Attending Provider Cliff MARKETING SALES REPRESENTATIVE-C, Liz Referring Provider [phone] Liz Coronado Attending Unavailable Coronado, Liz Referring Unavailable Sherri, Lenora Primary Care Unavailable Sherri, Lenora Referring Unavailable Oscar Crawford Attending Unavailable [place], Lenora Primary Care Unavailable Coronado, Liz Attending Unavailable Coronado, Liz Referring Unavailable [place], Lenora Primary Care Unavailable [place], Lenora Primary Care Unavailable [place], Lenora Referring Unavailable Coronado Liz Attending Unavailable Allergies Allergy Classification Reported Allergen(s) Allergy Type Date of Onset Reaction(s) Facility (20 sources) Acetaminophen / HYDROcodone; Translations: [acetaminophen-hy drocodone] Drug Allergy Nausea (finding), Dizziness (finding) [facility] (16 sources) Penicillin; Translations: [penicillin] Drug Allergy [facility] (5 sources) predniSONE; Translations: [prednisone] Drug Allergy Unknown [facility] (20 sources) quinapril; Translations: [quinapril] Drug Allergy Unknown [facility] (20 sources) rosuvastatin; Translations: [rosuvastatin] Drug Allergy cramping, Unknown [facility] Comment on above: cramping, made her f eel like a zombie (2 sources) Penicillins Propensity to adverse reactions 5 Pain in joints [facility] (1 source) Penicillins Drug allergy (disorder) 5 [facility] Repository Medications Current Medications Medication Drug [...] / zinc oxide 17.4 mg oral tablet (2 sources) Vitamin C Start: 06-22-2018 Vitamins A,C,D-Fipp-Nofwfv (Preservision Areds Tablet) 1 EACH tablet Active June 22, 2018 12:00am aspirin 81 mg delayed release oral tablet (18 sources) Platelet Aggregation Inhibitor, Nonsteroidal Anti-inflammatory Drug Start: 08-09-2020 aspirin 81 mg oral delayed release tablet Dose : 81 mg = 1 tab(s), Oral, Daily, # 30 tab(s), 0 Refill(s), Pharmacy: [facility], 148, cm, 08/09/20 9:03:00 EDT, Height, kg, 08/09/20 9:03:00 EDT, Dosing Weight Start Date: 08/09/20 Status: Ordered Quantity: 30.0 Unit: tab(s) Repeat number: 1 Start: 08-09-2020 aspirin 81 mg oral delayed release tablet Dose : 81 mg = 1 tab(s), Oral, Daily, # 30 tab(s), 0 Refill(s), Pharmacy: [facility], 148, cm, 08/09/20 9:03:00 EDT, Height, kg, 08/09/20 9:03:00 EDT, Dosing Weight Start Date: 08/09/20 Status: Ordered Start: 07-01-2016 take 81 mg by mouth once daily Aspir-Low Active 81 mg PO DAILY July 01, 2016 12:00am atorvastatin 10 mg oral tablet (18 sources) HMG-CoA Reductase Inhibitor Start: 03-24-2022 End: 07-27-2025 atorvastatin 10 mg oral tablet Dose : 10 mg = 1 tab(s), Oral, qDay, # 90 tab(s), 3 Refill(s), Pharmacy: [facility], 149, cm, 07/13/24 11:17:00 EDT, Height, kg, 07/13/24 11:17:00 EDT, Dosing Weight Start Date: 08/01/24 Stop Date: 07/27/25 Status: Ordered Quantity: 90.0 Unit: tab(s) Repeat number: 4 Start: 02-19-2021 End: 02-14-2022 atorvastatin 10 mg oral tabl et Dose : 10 mg = 1 tab(s), Oral, qDay, # 90 tab(s), 3 Refill(s), Pharmacy: [facility], 152.4, cm, 02/07/21 9:05:00 EDT, [...] Ordered Start: 03-27-2009 take 2 tablets by [facility] once daily Calcium 600 +D 2 tab(s), PO, Daily Start Date: 03/27/09 Status: Ordered Calcium Carb/Vitamin D (2 sources) Start: 07-01-2016 Calcium Carb/V itamin D Active 2 {tbl} PO DAILY July 01, 2016 12:00am furosemide 20 mg oral tablet (18 sources) Loop Diuretic Start: 08-01-2024 End: 07-27-2025 furosemide 20 mg oral tablet Dose : 20 mg = 1 tab(s), Oral, qDay, # 90 tab(s), 3 Refill(s), Pharmacy: [facility], 149, cm, 07/13/24 11:17:00 EDT, Height, kg, 07/13/24 11:17:00 EDT, Dosing Weight Start Date: 08/01/24 Stop Date: 07/27/25 Status: Ordered Quantity: 90.0 Unit: tab(s) Repeat number: 4 Start: 04-27-2023 End: 04-21-2024 furosemide 20 mg oral tablet Dose : 20 mg = 1 tab(s), Oral, qDay, # 90 tab(s), 3 Refill(s), Pharmacy: [facility], 155, cm, 02/22/23 13:15:00 EST, Height, kg, 02/22/23 13:15:00 EST, Dosing Weight Start Date: 04/27/23 Stop Date: 04/21/24 Status: Ordered Quantity: 90.0 Unit: tab(s) Repeat number: 4 Start: 07-01-2016 End: 03-19-2023 furosemide 20 mg oral tablet Dose : 20 mg = 1 tab(s), Oral, qDay, # 90 tab(s), 3 Refill(s), Pharmacy: [facility], 152.4, cm, 12/02/21 9:26:00 EDT, Height, kg, 12/02/21 9:26:00 EDT, Dosing Weight Start Date: 03/24/22 Stop Date: 03/19/23 Status: Ordered Ibuprofen (15 sources) Nonsteroidal Anti-inflammatory Drug Start: 06-20-2024 ibuprofen 0 Refil l(s) Start Date: 06/20/24 Status: Ordered Repeat number: 1 Start: 10-21-2018 ibuprofen 200 mg oral tablet Dose : 200 mg = 1 tab(s), Oral, q6hr, PRN as needed for pain, 0 Refill(s) Start Date: 10/21/18 Status: Ordered Repeat number: 1 meclizine hydrochloride 25 mg oral tablet (6 [...] release), # 90 tab(s), 1 Refill(s), Pharmacy: [facility], 152.4, cm, 11/19/21 10:43:00 EDT, Height, kg, 11/19/21 10:43:00 EDT, Dosing Weight Start Date: 11/19/21 Status: Ordered Start: 09-19-2021 Toprol-XL 25 m g oral tablet, extended release Dose : 12.5 mg = 0.5 tab(s), Oral, BID, Do not crush or chew (controlled release), # 90 tab(s), 6 Refill(s), Pharmacy: [facility], 152.4, cm, 09/19/21 11:18:00 EDT, Height Start Date: 09/19/21 Status: Ordered Metoprolol Kaufman-Hydrochlorothiaz 50-12.5 mg tablet extended release 24 hr (2 sources) Start: 08-04-2022 Metoprolol Kaufman-Hydrochlorothiaz 50-12.5 mg tablet extended release 24 hr Active {tbl} PO August 04, 2022 12:00am omeprazole 20 mg delayed release oral capsule (2 sources) Proton Pump Inhibitor Start: 11-13-2024 Omeprazole 20 mg capsule,delayed release(DR/EC) Active 20 mg PO TWICE A DAY 60 November 13, 2024 12:00am Take 30minutes before eating breakfast and supper. ondansetron 4 mg oral tablet (7 sources) Serotonin-3 Receptor Antagonist Start: 12-15-2022 ondansetron 4 mg oral tablet Dose : 4 mg = 1 tab(s), Oral, q8h, PRN Nausea/Vomiting, # 8 tab(s), 0 Refill(s), Pharmacy: [facility], 147.5, cm, 12/15/22 10:00:00 EDT, [...] 0 Refill(s), 10/06/23 1:15:00 PM EDT, Pharmacy: [facility], Chronic back pain Osteoarthritis, 149, cm, 09/06/23 12:45:00 EDT, Height, 85.4, kg, 09/06/23 12:45:00 EDT, Dosing Weight Start Date: 09/06/23 Stop Date: 10/06/23 Status: Ordered microencapsulated potassium chloride 20 meq extended release oral tablet (17 sources) Start: 08-04-2022 take 1 tablet by mouth once daily Potassium Chloride 20 mEq tablet,ER particles/crystals Active 20 meq PO DAILY August 04, 2022 12:00am Start: 11-19-2021 potassium chlo ride 10 mEq oral capsule, extended release Dose : 10 mEq = 1 cap(s), Oral, BID, take with food., # 60 cap(s), 6 Refill(s), Pharmacy: [facility], 152.4, cm, 11/19/21 10:43:00 EDT, Height Start Date: 11/19/21 Status: Ordered Quantity: 60.0 Unit: cap(s) Repeat number: 7 Start: 09-19-2021 potassium chlo ride 20 mEq oral tablet, extended release Dose : 20 mEq = 1 tab(s), Oral, qDay, Take with food, # 30 tab(s), 6 Refill(s), Pharmacy: [facility], 152.4, cm, 09/19/21 11:18:00 EDT, Height Start Date: 09/19/21 Status: Ordered traMADol hydrochloride 50 mg oral tablet (10 sources) Opioid Agonist Start: 11-30-2022 End: 02-28-2023 traMADol 50 mg oral tablet Dose : 50 mg = 1 tab(s), Oral, q8h, PRN for pain, X 30 day(s), # 90 tab(s), 2 Refill(s), 02/28/23 12:31:00 PM EST, Pharmacy: [facility], Chronic back pain Lumbar disc [...] capsule (2 sources) Anti-epileptic Agent Start: 09-22-2022 gabapentin 300 mg oral capsule Dose : 300 mg = 1 cap(s), Oral, BID, 0 Refill(s), 90.7 Start Date: 09/22/22 Status: Ordered isosorbide dinitrate 5 mg oral tablet (2 sources) Nitrate Vasodilator Start: 06-22-2018 End: 08-04-2022 Isosorbide Dinitrate (Isordil Titradose) 5 MG tablet Discontinued 2.5 mg PO TWICE A DAY June 22, 2018 12:00am August 04, 2022 2:02pm lisinopril 5 mg oral tablet (3 sources) Angiotensin Converting Enzyme Inhibitor Start: 07-01-2016 End: 08-04-2022 take 1 tablet by mouth once daily Lisinopril (Zestril) 5 MG tablet Discontinued 5 mg PO DAILY July 01, 2016 12:00am August 04, 2022 2:02pm Prolia 60 mg/mL subcutaneous solution (1 source) Start: 02-20-2021 Prolia 60 mg/mL subcutaneous solution Dose : [...] on above: Last LDL 111 Esophageal disorders (20 sources) Diffuse spasm of esophagus; Translations: [Esophageal dysmotility] Onset: 11-13-2024 02-01-2019 Chronic Essential hypertension (16 sources) Benign essential hypertension 02-01-2019 Chronic Heart valve disorders (16 sources) Aortic valve stenosis 08-09-2020 Chronic Leukemias (20 sources) Chronic lymphoid leukemia, disease; Translations: [Chronic lymphocytic leukemia of B-cell type not having achieved remission] Onset: 11-29-2024 02-01-2019 Chronic Comment on above: Lymphocytosis-asympt omatic.Clinically stable. Nausea and vomiting (5 sources) Regurgitation of food; Translations: [Vomiting, unspecified] [...] Test Name Value Interpretation Reference Range Facility MR/PAT.Luis Felipe 12-11-2024 MR/PAT.JO [facility] Medical Records Department [address] [place] [address] PAT - Anesthesia 12/11/24 1650 MR#: [id number] Acct: [id number] Name: LORI NOGUERA Rep #: [id number] : 1935 89 From: Brian Rebolledo MD PCP: EMILIA Huff Status:PRE SDC Y Race: C Location: EN Pre-Assessment Diagnosis/Proposed Procedure Planned Operative Procedure(s): EGD Anesthesia History Anesthesia History - hardware installation coordinator: Anesthesia History - hardware installation coordinator Hx Hospitalization No 12/11/24 08:59 Any Problems With Anesthesia No 12/11/24 08:59 Cholinesterase deficiency No 12/11/24 08:59 You/Your Family Experience No 12/11/24 08:59 fever (hyperthermia) with Relationship Recent Exposure to Contagious Disease Does patient have nerve No 12/11/24 08:59 stimulator Patient instructed to have device shut off --Does patient have Pacemaker or ICD? When Was Last Pacemaker Check QUESTION #4 FULL TEXT: You/Your Family Experience fever (hyperthermia) with Anesthesia Last Oral Intake Last Oral intake: Last Oral Intake NPO since Meds taken in AM with sips of water? Meds patient instructed to take am of surgery PONV PONV - hardware installation coordinator: PONV - hardware installation coordinator Female Yes 12/11/24 08:59 HX of Motion Sickness No 12/11/24 08:59 HX of N/V After Surgery No 12/11/24 08:59 Non-Smoker Yes 12/11/24 08:59 Duration of Surgery greater No 12/11/24 08:59 than 60 minutes Number of Risk Factors 2 12/11/24 08:59 PONV Score Moderate Risk 12/11/24 08:59 Height Weight Height Weight: Anesthesia: Height Weight Height 5 ft 11/10/24 07:13 Respiratory Assessment Respiratory Assessment - hardware installation coordinator: Respiratory Tract Infection Hx - hardware installation coordinator Hx Respiratory Tract Infection No 12/11/24 08:59 STOP Sleep Apnea STOP Sleep Apnea - hardware installation coordinator: STOP Sleep Apnea - hardware installation coordinator Hx Hypertension Yes: NO MEDS PRESENTLY 12/11/24 08:59 Hx Sleep Apnea No 12/11/24 08:59 CPAP BIPAP Do you snore loudly (louder No 12/11/24 08:59 than talking or can be heard Do you often feel tired/ No 12/11/24 08:59 fatigued/ sleepy during daytime? Has anyone observed you stop No 12/11/24 08:59 breathing during sleep? STOP Results Negative 12/11/24 08:59 QUESTION #5 FULL TEXT : Do you snore loudly (louder than talking or can be heard through closed doors)? Tobacco Use History Tobacco Use History - hardware installation coordinator: Tobacco Use History - hardware installation coordinator Tobacco Use Smoking Status Never smoker 12/11/24 08:59 Hx Tobacco Use No 12/11/24 08:59 Years Smoking Packs Smoked per Day Smoking Cessation Date was within the last 15 years Hx Smoking Cessation Date Hx Smoking Cessation Counseling Hematologic Medial History Hematologic Hx - hardware installation coordinator: Hematologic Medical Hx - cook helper vegetable Hx of Blood Transfusion No 12/11/24 08:59 Hx of Transfusion in last 3 No 12/11/24 08:59 Months Date of Last Transfusion (if within last 3 months) Ever experience any problems No 12/11/24 08:59 with transfusion(s)? Specify any problems Hx of Preganancy in last 3 No 12/11/24 08:59 Months Nurse Filling Out Transfusion VCHRISTIN 12/11/24 08:59 Questions: Date: 12/11/24 12/11/24 08:59 Time: 09:01 12/11/24 08:59 Patient unable to answer at this time (ie. confused, unrespo /Reproduction History /Reproductive History - hardware installation coordinator: /Reproductive Hx- hardware installation coordinator Hx Now No 12/11/24 08:59 Gestational Age (in weeks): EDC: Hx Hx Para Hx Section SAB No 12/11/24 08:59 [facility] Medical History (Updated 12/11/24 @ 08:59 by Marguerite Onofre) Wears hearing aid Post-menopausal Cancer Rash Arthritis Easy bruising High cholesterol History of leukemia Back pain Injury of back Injury of head and neck Difficulty swallowing Non-smoker History of pain when walking History of edema Cardiology follow-up encounter Hypogammaglobulinemia Hypertension Diabetes mellitus Home Medications ???Medication ???Instructions ???Recorded ???Last Taken ???Type Aspir-Low 81 mg PO DAILY 07/01/16 Unknown Hi story Calcium Carb/Vitamin D 2 tab PO DAILY 07/01/16 Unknown [facility] furosemide 20 mg tablet 20 mg PO DAILY 07/01/16 Unknown [facility] atorvastatin 10 mg tablet 10 mg PO DAILY 08/04/22 Unknown [facility] story potassium chloride 20 mEq 20 meq PO BID 08/04/22 Unknown His tory tablet,extended release(part/cryst) omeprazole 20 mg capsule,delayed 20 mg PO BID #60 caps 11/13/24 Henrietta rojas Rx release biotin 5 mg tablet 5 mg (more content not included)... Normal [facility] SP/HP.SPREEVon 11-29-2024 SP/HP.SPREEV [facility] Speech Pathology [facility] [address] [place] [address] / REEVALUATION / MEDICARE RECERTIFICATION SPEECH THERAPY MR#: [id number] Acct: [id number] Name: LORI NOGUERA Rep #: [id number] : 1935 89 From: Tricia Florian M.A., [facility]-REGISTRATION OFFICER Referring Dr.: EMILIA Coronado Insurance: [facility] SELF PAY INSURANCE Visit History Visit Info Date of Eval: 11/29/24 Today is Visit #: 1 Winding Lathe Operator: KIMANI History Attending Doctor: RUIZ Referring Doctor: RUIZ Reason for Referral: OROPHARYNGEAL DYSPHAGIA/RX SCANNED IN Medical Diagnosis: Oropharyngeal dysphagia R13.12; Esophageal dysmotility K22.4 Date of Onset of Diagnosis: 11/23/2024 Previous speech therapy: No Other Relevant Medical History/Diagnoses/Surg carmencita: Pt presented to [facility] to establish care for management of swallowing difficulty, esophageal dysmotility, and regurgitation of food. ???History of last EGD with Dr. Saldana, done on 06.13.2018. 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 Random tissue biopsies taken. Pathology demonstrated squamous esophageal mucosa without significant microscopic pathology.??? Patient reported increased difficulty w/ chicken (white meat) and bun. Pt was recommended for omeprazole, MBSS, and EGD. MBSS was completed 11/23/2024. Prior to MBSS, pt and daughter provided additional hx re: hx of swallowing difficulty: Pt reports vomiting solids, undigested. If using liquid wash, she feels the liquids ???sit on top??? of the foods, and they are vomited, as well. Swallowing difficulty occurs every few days. Pt has never choked, but feels fearful of choking. Pt avoids eating chicken, pulled pork, and bread. 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 Hx of PNA >10 years ago. MBSS revealed the following diagnosis, impressions, and recommendations... Diagnosis: Esophageal dysphagia R13.14; Mild-moderate oropharyngeal dysphagia R13.12 MBS Impressions: The oral phase is primarily marked by... -Decreased bolus control noted w/ posterior loss of >1/2 of sequential sips of thin liquids to the pyriform sinuses. The pharyngeal phase is primarily marked by... -Delayed swallow onset. -Decreased airway closure due to decreased laryngeal elevation and anterior hyoid excursion resulting in aspiration of thin liquids via cup w/ delayed, reflexive cough. -Mildly decreased TB retraction and pharyngeal stripping wave w/ trace-mild pharyngeal residues. The esophageal phase is primarily marked by... -Retention of pudding in the middle and lower esophagus w/ lower esophagus appearing very narrow. Liquid wash did not fully clear barium. Continued retention of barium in the middle and lower esophagus w/ retrograde flow. -Retention of cookie in the middle and lower esophagus. Liquid wash resulted in retrograde flow to the upper esophagus. After second liquid wash, retention in the middle and lower esophagus. Recommendations Diet: Soft and Bite Sized Textures and Thin Liquids Compensatory Strategies: Small Bites, Small Sips (Sips 1 at a time, Hard swallows), Slow Rate, Alternate bites/solids and sips/liquids (1-2 sips after each bite) and Sitting upright (During and 60min after meals) Recommend Repeat Modified Barium Swallow: TBD Need for Skilled Speech Therapy Services: Yes Comment: -Train the patient in use of strategies to decrease risk for aspiration and reflux aspiration. -Ongoing assessment of diet tolerance of recommended textures. Trial easy to chew and regular textures after EGD w/ REGISTRATION OFFICER to consider diet advancement. -Train the patient in oropharyngeal exercise program to improve bolus control, airway closure, swallow onset, and pharyngeal motility (Becky, Effortful, Cristy, lingual resistance). Recommended Referrals: GI Consult (Continue to follow w/ GI for management of esophageal dysmotility.) Education Completed: 1. Described result of evaluation., 2. Pt understands evaluation agrees with goals and treatment plan., 4. Family/caregivers understand evaluation agree w/ goals tx plan. and 7. Pt requires further education on strategies risks. Pt now presents for OP speech therapy evaluation to address oropharyngeal dysphagia and aspiration risk. PMH: Hypogammaglobulinemia, HTN, DM, CLL (follows w/ Dr. Delaney), Esophageal dysmotility, Regurgitation of food ??? See EMR for full PMH. Smoking Status: Never smoker Pain Is pain an issue with your current prescribed condition?: No Personal Preferred language: Armenian Patient Allergies Allergies Allergies: Allergies Penicillins (PCN) Adverse Reaction (Intermediate, Verified 11/13/24 14:26) Pain in joints Subjective Dysphagia Symptoms Reported Symptoms/Problems with: Difficulty Swallowing Pills, Food gets stuck and Hx of Aspiration Current Diet Solids Current Diet: Soft (more content not included)... Normal [facility] Modified Barium Swallow Stud yon 11-23-2024 Modified Barium Swallow Study [facility] Speech Pathology [address] [place] [address] Modified Barium Swallow Study MR#: [id number] Acct: [id number] Name: SONIYALORI Crouch Rep #: [id number] : 1935 89 From: Tricia Florian M.A., [facility]-REGISTRATION OFFICER Modified Barium Swallow Patient Information Study Date: 11/23/24 Study Time: 13:00 Direct Billable Minutes: 120 Total Minutes procedure reportin Diagnosis: Vomiting R11.10; Esophageal dysmotility K22.4 Referring Physician: Liz Coronado Reason for Referral: Pt presented to [facility] to establish care for management of swallowing difficulty, esophageal dysmotility, and regurgitation of food. ???History of last EGD with Dr. Saldana, done on 06.13.2018. 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 Random tissue biopsies taken. Pathology demonstrated squamous esophageal mucosa without significant microscopic pathology.??? Patient reported increased difficulty w/ chicken (white meat) and bun. Pt was recommended for omeprazole, MBSS, and EGD. Pt and daughter, Danielle, provided additional details regarding swallowing difficulty. Pt reports vomiting solids, undigested. If using liquid wash, she feels the liquids ???sit on top??? of the foods, and they are vomited, as well. Swallowing difficulty occurs every few days. Pt has never choked, but feels fearful of choking. Pt avoids eating chicken, pulled pork, and bread. 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 Hx of PNA >10 years ago. Pt follows w/ Dr. Delaney for CLL (annually per pt). Medical History: PMH: Hypogammaglobulinemia, HTN, DM, CLL, Esophageal dysmotility, Regurgitation of food ??? See EMR for full PMH. Current Diet Ordered: Soft solids / Thin liquids Dentition: WNL and Natural Teeth Mental Status: WNL Respiratory Status: Oxygenating on Room Air Penetration-Aspiration Scale Penetration-Aspiration Scale: OBJECTIVE ASSESSMENT OF SWALLOW FUNCTION (QUANTITATIVE ??? PER TRIAL): PENETRATION / ASPIRATION SCALE (LIND): 1 = does not enter airway 2 = enters airway/above vocal folds/ejected 3 = enters airway/above vocal folds/not ejected 4 = enters airway/contacts vocal folds/ejected 5 = enters airway/contacts vocal folds/not ejected 6 = enters airway/below vocal folds/ejected 7 = enters airway/below vocal folds/not ejected despite effort 8 = enters airway/below vocal folds/no effort VIDEOFLOROSCOPIC SCALE SCORE (LIND): Grade I = aspiration of material that has penetrated into the laryngeal vestibule, intact cough reflex Grade II = aspiration < 10 % of the bolus, intact cough reflex Grade III = aspiration of < 10 % of the bolus, reduced cough reflex or aspiration of > 10 % of the bolus, intact cough reflex Grade IV = aspiration of > 10 % of the bolus, reduced cough reflex Penetration-Aspiration Scale Score Thin Liquid via teaspoon: Result: 1= does not enter airway Thin Liquid via teaspoon Trial 2: Result: 1= does not enter airway Thin Liquid via large single sip: cup: Result: 1= does not enter airway Thin Liquid via sequential sips: cup: Result: 7= enters airways/below vocal folds/not ejected despite effort Comment: Esophageal screen - Trial mostly cleared, minimal barium in lower esophagus. Phil Campbell Thick Liquid via large single sip: cup: Result: 1= does not enter airway Pudding via teaspoon: Result: 1= does not enter airway Comment: Esophageal screen - Retention in the middle and lower esophagus w/ lower esophagus appearing very narrow. Thin Liquid via single sip: straw: Result: 1= does not enter airway 1/2 Cookie: Result: 1= does not enter airway Comment: Cued pt for cough and re-swallow to clear trace residues remaining in the laryngeal vestibule and on the vocal folds from the sequential thin cup trial. Thin Liquid via single sip: straw Trial 2: Result: 2= enter airway/above vocal folds/ejected Thin Liquid via single sip: straw Effortful swallow: Result: 1= does not enter airway Oral Phase Labial Seal: No Labial Escape Tongue Control During Bolus Hold: Posterior escape of less than half of bolus Bolus Preparation/Masticatio n: Timely and efficient chewing and mashing Bolus Transport/Lingual Motion: Delayed initiation of tongue motion Oral Residue: Residue collection on oral structures Pharyngeal Phase Initiation of Pharyngeal Swallow: Bolus head in pyriforms (vocal folds w/ sequential thin) Soft Palate Elevation: Trace column of contrast/air between soft palate and pharyngeal wall Laryngeal Elevation: Partial superior movement thyroid cart/partial apprx aryt-epig petiole Anterior Hyoid Excursion: Partial anterior movement Epiglottic Movement: Complete inversion Laryngeal Vestibule Closure at Height of Swallow: Incomplete; narrow column of air/contrast in laryngeal vestibule Pharyngeal Stripping Wave: Present - diminished Pharyngoesophageal Segment Opening: Parital distension and partial d (more content not included)... Normal [facility] Gastroenterology Visit Repor ton 11-13-2024 Gastroenterology Visit Report [facility]enterology [address] [place] [address] OFFICE VISIT Date of Service: 11/13/24 MR#: [id number] Acct: [id number] Name: LORI NOGUERA Rep #: [id number] : 1935 Provider: EMILIA mckeon Age/Sex: 89/F Location: [email or web address] Status: Signed Intake Vital Signs 08/03/23 14:02 [...] PO DAILY 07/01/16 11/13/24 H istory vitamins A,C,E-szrh-vlqxzl 2,148 06/22/18 11/13/24 History mcg-113 mg-45 mg-17.4 [...] HPI Chief Complaint: Difficulty swallowing Details: LORI NOGUERA, is a 89 F who presents to the office today for establishment with [facility] regarding concerns for difficulty swallowing. She presents [...] Appearance: overweight Orientation: alert and oriented x3 HENFL Head: normal to inspection Ears: hearing grossly [...] speech normal (more content not included)... Normal [facility] .Manual Diffon 07-13-2024 Atypical Lymphs 6.0 % High 0.0-5.0 [facility] Comment on above: Performed By: #### M ORPH, CBC, DIFF #### [address] [place], [place] [address] Aytpical Lymph, Abs Manual 1.7 10 3/mcL High 0.0-0.5 [facility] Comment on above: Performed By: #### M ORPH, CBC, DIFF #### [address] [place], [place] [address] Bands 1.0 % Normal 0.0-5.0 [facility] Comment on above: Performed By: #### M ORPH, CBC, DIFF #### [address] [address] Basophil %, Manual 0.0 % Normal 0.0-2.5 [facility] Comment on above: Performed By: #### M ORPH, CBC, DIFF #### [address] [address] Basophil, Abs Manual 0.0 10 3/mcL Normal 0.0-0.3 [facility] Comment on above: Performed By: #### M ORPH, CBC, DIFF #### [address] [address] Eosinophil %, Manual 1.0 % Normal 0.0-6.0 [facility] Comment on above: Performed By: #### M ORPH, CBC, DIFF #### [address] [address] Eosinophil, Abs Manual 0.3 10 3/mcL Normal 0.0-0.7 [facility] Comment on above: Performed By: #### M ORPH, CBC, DIFF #### [address] [address] Lymphocyte %, Manual 63.0 % High 20.0-40.0 [facility] Comment on above: Performed By: #### M ORPH, CBC, DIFF #### [address] [address] Lymphocyte, Abs Manual 18.4 10 3/mcL High 0.9-4.3 [facility] Comment on above: Performed By: #### M ORPH, CBC, DIFF #### [address] [address] Monocyte %, Manual 2.0 % Normal 2.0-13.0 [facility] Comment on above: Performed By: #### M ORPH, CBC, DIFF #### [address] [address] Monocyte, Abs Manual 0.6 10 3/mcL Normal 0.1-1.4 [facility] Comment on above: Performed By: #### M ORPH, CBC, DIFF #### [address] [address] Neutrophil %, Manual 27.0 % Low 50.0-75.0 [facility] Comment on above: Performed By: #### M ORPH, CBC, DIFF #### [address] [address] Neutrophil, Abs Manual 8.2 10 3/mcL High 2.3-8.1 [facility] Comment on above: Performed By: #### M ORPH, CBC, DIFF #### [address] [address] Nucleated RBC 0.0 /100 WBC Normal [facility] Comment on above: Performed By: #### M ORPH, CBC, DIFF #### [address] [address] .Morphon 07-13-2024 Ovalocytes 1+ Normal [facility] Comment on above: Performed By: #### M ORPH, CBC, DIFF #### [address] [address] Platelet Estimate Normal Normal [facility] Comment on above: Performed By: #### M ORPH, CBC, DIFF #### [address] [address] Smudge Cells 1+ Normal [facility] Comment on above: Performed By: #### M ORPH, CBC, DIFF #### [address] [address] CBCon 07-13-2024 Erythrocyte distribution width (RBC) [Ratio] 14.2 % Normal 11.5-15.5 [facility] Comment on above: Performed By: #### M ORPH, CBC, DIFF #### [address] [address] Hematocrit (Bld) [Volume fraction] 44.5 % Normal 34.0-46.0 [facility] Comment on above: Performed By: #### M ORPH, CBC, DIFF #### [address] [address] Hgb 14.5 G/dL Normal 12.0-16.0 [facility] Comment on above: Performed By: #### M ORPH, CBC, DIFF #### [address] [address] MCH (RBC) [Entitic mass] 28.9 pg Normal 27.0-33.0 [facility] Comment on above: Performed By: #### M ORPH, CBC, DIFF #### [place] [address] MCHC 32.5 G/dL Normal 32.0-36.0 [facility] Comment on above: Performed By: #### M ORPH, CBC, DIFF #### [address] [address] MCV (RBC) [Entitic vol] 89.1 fL Normal 80.0-99.0 [facility] Comment on above: Performed By: #### M ORPH, CBC, DIFF #### [address] [address] Platelet 177 10 3/mcL Normal 150-450 [facility] Comment on above: Performed By: #### M ORPH, CBC, DIFF #### [address] [address] Platelet mean volume (Bld) [Entitic vol] 7.6 fL Normal 6.6-10.5 [facility] Comment on above: Performed By: #### M ORPH, CBC, DIFF #### [address] [address] RBC 5.00 10 6/mcL Normal 4.10-5.30 [facility] Comment on above: Performed By: #### M ORPH, CBC, DIFF #### [address] [address] WBC 29.2 10 3/mcL High 4.5-10.8 [facility] Comment on above: Performed By: #### M ORPH, CBC, DIFF #### [address] [address] .GFRon 06-26-2024 Estimated Glomerular Filtration Rate 81 ml/min/1.73sqm Normal [facility] Comment on above: Result Comment: Stages of [...] By: #### M ORPH, CBC, DIFF #### [place] [address] .Manual Diffon 06-26-2024 Basophil %, Manual 0.0 % Normal 0.0-2.5 [facility] Comment on above: Performed By: #### G FR, CBC, MORPH, DIFF, CMP #### [place] [address] Basophil, Abs Manual 0.0 10 3/mcL Normal 0.0-0.2 [facility] Comment on above: Performed By: #### G FR, CBC, MORPH, DIFF, CMP #### [address] [address] Eosinophil %, Manual 1.0 % Normal 0.0-7.0 [facility] Comment on above: Performed By: #### G FR, CBC, MORPH, DIFF, CMP #### [place] [address] Eosinophil, Abs Manual 0.3 10 3/mcL Normal 0.0-0.7 [facility] Comment on above: Performed By: #### G FR, CBC, MORPH, DIFF, CMP #### [address] [address] Lymphocyte %, Manual 82.0 % High 20.0-40.0 [facility] Comment on above: Performed By: #### G FR, CBC, MORPH, DIFF, CMP #### [address] [address] Lymphocyte, Abs Manual 26.5 10 3/mcL High 0.9-4.3 [facility] Comment on above: Performed By: #### G FR, CBC, MORPH, DIFF, CMP #### [address] [address] Monocyte %, Manual 0.0 % Low 2.0-13.0 [facility] Comment on above: Performed By: #### G FR, CBC, MORPH, DIFF, CMP #### [address] [address] Monocyte, Abs Manual 0.0 10 3/mcL Low 0.1-1.4 [facility] Comment on above: Performed By: #### G FR, CBC, MORPH, DIFF, CMP #### [address] [address] Neutrophil %, Manual 17.0 % Low 50.0-75.0 [facility] Comment on above: Performed By: #### G FR, CBC, MORPH, DIFF, CMP #### [address] [address] Neutrophil, Abs Manual 5.5 10 3/mcL Normal 2.3-8.1 [facility] Comment on above: Performed By: #### G FR, CBC, MORPH, DIFF, CMP #### [address] [address] Nucleated RBC 0.0 /100 WBC Normal [facility] Comment on above: Performed By: #### G FR, CBC, MORPH, DIFF, CMP #### [address] [address] .Morphon 06-26-2024 Platelet Estimate Normal Normal [facility] Comment on above: Performed By: #### G FR, CBC, MORPH, DIFF, CMP #### [place] [address] Smudge Cells 1+ Normal [facility] Comment on above: Performed By: #### G FR, CBC, MORPH, DIFF, CMP #### [address] [address] CBCon 06-26-2024 Erythrocyte distribution width (RBC) [Ratio] 14.7 % Normal 11.5-15.5 [facility] Comment on above: Performed By: #### G FR, CBC, MORPH, DIFF, CMP #### [address] [address] Hematocrit (Bld) [Volume fraction] 44.0 % Normal 34.0-46.0 [facility] Comment on above: Performed By: #### G FR, CBC, MORPH, DIFF, CMP #### [address] [place] [address] Hgb 14.3 G/dL Normal 12.0-16.0 [facility] Comment on above: Performed By: #### G FR, CBC, MORPH, DIFF, CMP #### [address] [place] [phone] MCH (RBC) [Entitic mass] 28.8 pg Normal 27.0-33.0 [facility] Comment on above: Performed By: #### G FR, CBC, MORPH, DIFF, CMP #### [place] [address] MCHC 32.4 G/dL Normal 32.0-36.0 [facility] Comment on above: Performed By: #### G FR, CBC, MORPH, DIFF, CMP #### [address] [address] MCV (RBC) [Entitic vol] 88.9 fL Normal 80.0-99.0 [facility] Comment on above: Performed By: #### G FR, CBC, MORPH, DIFF, CMP #### [place] [id number] Platelet 205 10 3/mcL Normal 150-450 [facility] Comment on above: Performed By: #### G FR, CBC, MORPH, DIFF, CMP #### [address] [address] Platelet mean volume (Bld) [Entitic vol] 7.4 fL Normal 6.6-10.5 [facility] Comment on above: Performed By: #### G FR, CBC, MORPH, DIFF, CMP #### [address] [address] RBC 4.95 10 6/mcL Normal 4.10-5.30 [facility] Comment on above: Performed By: #### G FR, CBC, MORPH, DIFF, CMP #### [address] [address] WBC 32.3 10 3/mcL High 4.5-10.8 [facility] Comment on above: Performed By: #### G FR, CBC, MORPH, DIFF, CMP #### [address] [address] CMPon 06-26-2024 Albumin Level 3.9 G/dL Normal 3.4-4.8 [facility] Comment on above: Performed By: #### G FR, CBC, MORPH, DIFF, CMP #### [address] [address] Albumin/Globulin [Mass ratio] 1.6 {ratio} Normal 1.1-2.5 [facility] Comment on above: Performed By: #### G FR, CBC, MORPH, DIFF, CMP #### [address] [address] ALP [Catalytic activity/Vol] 92 U/L Normal 40-135 [facility] Comment on above: Performed By: #### G FR, CBC, MORPH, DIFF, CMP #### [address] [address] ALT [Catalytic activity/Vol] 22 U/L Normal 14-59 [facility] Comment on above: Performed By: #### G FR, CBC, MORPH, DIFF, CMP #### [address] [address] AST [Catalytic activity/Vol] 16 U/L Normal 10-40 [facility] Comment on above: Performed By: #### G FR, CBC, MORPH, DIFF, CMP #### [address] [address] Bili Total 0.8 mg/dL Normal 0.2-1.0 [facility] Comment on above: Result Comment: Use of this assay is not recommended for patients undergoing treatment with eltrombopag due to the potential for falsely elevated results. Performed By: #### G FR, CBC, MORPH, DIFF, CMP #### [place] [address] BUN/Creatinine Ratio 24 ratio Normal 7-27 [facility] Comment on above: Performed By: #### G FR, CBC, MORPH, DIFF, CMP #### [place] [address] Calcium [Mass/Vol] 9.0 mg/dL Normal 8.4-10.2 [facility] Comment on above: Performed By: #### G FR, CBC, MORPH, DIFF, CMP #### [address] [address] Chloride [Moles/Vol] 102 mmol/L Normal 98-107 [facility] Comment on above: Performed By: #### G FR, CBC, MORPH, DIFF, CMP #### [address] [address] CO2 [Moles/Vol] 31 mmol/L Normal 23-31 [facility] Comment on above: Performed By: #### G FR, CBC, MORPH, DIFF, CMP #### [place] [address] Creatinine [Mass/Vol] 0.72 mg/dL Normal 0.55-1.02 [facility] Comment on above: Result Comment: Test ing performed on Siemens Dimension EXL analyzer using a modified kinetic Kenny technique. Performed By: #### G FR, CBC, MORPH, DIFF, CMP #### [address] [address] Electrolyte Balance 7.0 mEq/L Normal 4.0-15.0 [facility] Comment on above: Performed By: #### G FR, CBC, MORPH, DIFF, CMP #### [address] [address] Globulin 2.4 G/dL Normal 1.5-3.8 [facility] Comment on above: Performed By: #### G FR, CBC, MORPH, DIFF, CMP #### [address] [address] Glucose [Mass/Vol] 134 mg/dL High 83-110 [facility] Comment on above: Performed By: #### G FR, CBC, MORPH, DIFF, CMP #### [address] [address] Potassium [Moles/Vol] 3.6 mmol/L Normal 3.5-5.1 [facility] Comment on above: Performed By: #### G FR, CBC, MORPH, DIFF, CMP #### [address] [address] Sodium [Moles/Vol] 140 mmol/L Normal 136-145 [facility] Comment on above: Performed By: #### G FR, CBC, MORPH, DIFF, CMP #### [address] [address] Total Protein 6.3 G/dL Low 6.4-8.2 [facility] Comment on above: Performed By: #### G FR, CBC, MORPH, DIFF, CMP #### [address] [address] Urea nitrogen [Mass/Vol] 17 mg/dL Normal 7-18 [facility] Comment on above: Performed By: #### G FR, CBC, MORPH, DIFF, CMP #### [address] [address] XR FLUORO GUIDANCE FOR THERA PY INJECTIONon 05-19-2024 XR FLUORO GUIDANCE FOR THERAPY INJECTION ORIGINAL Images acquired, not reported on this accession number. [facility] PMDSon 05-09-2024 [employer] 13 Summary FINAL [facility] MAIN Comment on above: Result Comment: ==== [...] consultation, please call . ==== Performed At: [facility] [address] [place] [id number] [facility] Ph:[phone] Performed By: #### [id number] #### [place] [address] MRI BRAIN W/ + W/O CONTRASTo n [...] Date: 04/04/2024 3:36:14 PM Ordering Provider: RYLAND GIRISH Normal [facility] XR FLUORO GUIDANCE FOR THERA PY INJECTIONon 01-07-2024 XR FLUORO GUIDANCE FOR THERAPY INJECTION ORIGINAL Images acquired, not reported on this accession number. Normal [facility] XR FLUORO GUIDANCE FOR THERA PY INJECTIONon 11-18-2022 XR FLUORO GUIDANCE FOR THERAPY INJECTION ORIGINAL Images acquired, not reported on this accession number. Normal [facility] ([place]) LABORATORYOrdered By: Esme Eden on 12-03-2021 Basophil [...] called to and read back by Neida,RN 4422 12-03-21 SB LABORATORYOrdered By: Bonnie Latham on [...] RBC 0.0 /100 WBC Invalid Interpretation Code Workflow SS Ovalocytes LM Ql (Bld) 1+ [...] seconds AH Auto Coag SS LABORATORYOrdered By: Gean Franklin on 10-17-2021 Anisocytosis Ql (Bld) 1+ [...] the ages of 18-89 years. LABORATORYOrdered By: Lorene Reddy on 06-09-2021 Basophil %, Manual 0.0 [...] File ---- Signed By: Lori Lowe MD [email or web address] Dictated: 01/18/2020 2:22 PM Signed: 01/18/2020 2:22 PM Reported By: LORI LOWE M.D. Signed By: LORI LOWE M.D. [facility] FLUOROSCOPY IN OR/PAIN MGTon 05-25-2019 FLUOROSCOPY IN [...] File ---- Signed By: Sacha Mariano MD [email or web address] Dictated: 05/25/2019 2:08 PM Signed: 05/25/2019 2:08 PM Reported By: SACHA MARIANO M.D. Signed By: SACHA MARIANO M.D. [facility] Vital Signs Date Time Vital Sign Value Performing Clinician Faci makeda 11-10-2024 07:13-0400 Body height 152.4 cm Lenora NIETO Work Phone: [facility] 05-19-2024 12:37-0500 Diastolic Blood Pressure Non-Invasive 61 mm[Hg] REGINA COLEY MD [facility] 05-19-2024 12:37-0500 Respiratory rate 14 /min REGINA COLEY MD [facility] 05-19-2024 12:37-0500 Systolic Blood Pressure Non-Invasive 145 mm[Hg] REGINA COLEY MD [facility] 05-19-2024 12:30-0500 Diastolic Blood Pressure Non-Invasive 92 mm[Hg] REGINA COLEY MD [facility] 05-19-2024 12:30-0500 Heart rate 91 /min REGINA COLEY MD [facility] 05-19-2024 12:30-0500 Respiratory rate 14 /min REGINA COLEY MD [facility] 05-19-2024 12:30-0500 Systolic Blood Pressure Non-Invasive 163 mm[Hg] REGINA COLEY MD [facility] 05-19-2024 12:26-0500 Diastolic Blood Pressure Non-Invasive 81 mm[Hg] REGINA COLEY MD [facility] 05-19-2024 12:26-0500 Heart rate 91 /min REGINA COLEY MD [facility] 05-19-2024 12:26-0500 Systolic Blood Pressure Non-Invasive 172 mm[Hg] REGINA COLEY MD [facility] 05-19-2024 12:22-0500 Heart rate 90 /min REGINA COLEY MD [facility] 05-19-2024 11:41-0500 Body height 149.86 cm REGINA COLEY MD [facility] 05-19-2024 11:41-0500 Body temperature 97.52 [degF] REGINA COLEY MD [facility] 05-19-2024 11:41-0500 Body weight 82.73 kg REGINA COLEY MD [facility] 05-19-2024 11:41-0500 Respiratory rate 16 /min REGINA COLEY MD [facility] 04-06-2024 11:05-0500 Body temperature 97.7 [degF] LENORA STOKES COLORECTAL SURGEON-EXTRACORPOREAL CIRCULATION SPECIALIST [facility] 04-06-2024 11:05-0500 Diastolic Blood Pressure Non-Invasive 97 mm[Hg] LENORA STOKES COLORECTAL SURGEON-EXTRACORPOREAL CIRCULATION SPECIALIST [facility] 04-06-2024 11:05-0500 Heart rate 84 /min LENORA STOKES COLORECTAL SURGEON-EXTRACORPOREAL CIRCULATION SPECIALIST [facility] 04-06-2024 11:05-0500 Reason For Taking VItal Signs LENORA NGUYENMER COLORECTAL SURGEON-EXTRACORPOREAL CIRCULATION SPECIALIST [facility] 04-06-2024 11:05-0500 Respiratory rate 16 /min LENORA STOKES COLORECTAL SURGEON-EXTRACORPOREAL CIRCULATION SPECIALIST [facility] 04-06-2024 11:05-0500 Systolic Blood Pressure Non-Invasive 172 mm[Hg] LENORA STOKES COLORECTAL SURGEON-EXTRACORPOREAL CIRCULATION SPECIALIST [facility] 01-07-2024 13:55-0400 Body temperature 98.6 [degF] REGINA COLEY MD [facility] 01-07-2024 13:55-0400 Diastolic Blood Pressure Non-Invasive 70 mm[Hg] REGINA COLEY MD [facility] 01-07-2024 13:55-0400 Heart rate 88 /min REGINA COLEY MD [facility] 01-07-2024 13:55-0400 Respiratory rate 18 /min REGINA COLEY MD [facility] 01-07-2024 13:55-0400 Systolic Blood Pressure Non-Invasive 141 mm[Hg] REGINA COLEY MD [facility] 01-07-2024 13:45-0400 Diastolic Blood Pressure Non-Invasive 63 mm[Hg] REGINA COLEY MD [facility] 01-07-2024 13:45-0400 Heart rate 91 /min REGINA COLEY MD [facility] 01-07-2024 13:45-0400 Systolic Blood Pressure Non-Invasive 166 mm[Hg] REGINA COLEY MD [facility] 01-07-2024 13:41-0400 Diastolic Blood Pressure Non-Invasive 101 mm[Hg] REGINA COLEY MD [facility] 01-07-2024 13:41-0400 Heart rate 91 /min REGINA COLEY MD [facility] 01-07-2024 13:41-0400 Systolic Blood Pressure Non-Invasive 159 mm[Hg] REGINA COLEY MD [facility] 01-07-2024 12:43-0400 Body height 144.78 cm REGINA COLEY MD [facility] 01-07-2024 12:43-0400 Body temperature 97.88 [degF] REGINA COLEY MD [facility] 01-07-2024 12:43-0400 Body weight 83.18 kg REGINA COLEY MD [facility] 01-07-2024 12:43-0400 Respiratory rate 18 /min REGINA COLEY MD [facility] 09-28-2023 11:38-0400 Body temperature 97.7 [degF] LENORA STOKES COLORECTAL SURGEON-EXTRACORPOREAL CIRCULATION SPECIALIST [facility] 09-28-2023 11:38-0400 Diastolic Blood Pressure Non-Invasive 68 mm[Hg] LENORA STOKES COLORECTAL SURGEON-EXTRACORPOREAL CIRCULATION SPECIALIST [facility] 09-28-2023 11:38-0400 Heart rate 83 /min LENORA STOKES COLORECTAL SURGEON-EXTRACORPOREAL CIRCULATION SPECIALIST [facility] 09-28-2023 11:38-0400 Respiratory rate 14 /min LENORA SHERRI COLORECTAL SURGEON-EXTRACORPOREAL CIRCULATION SPECIALIST [facility] 09-28-2023 11:38-0400 Systolic Blood Pressure Non-Invasive 145 mm[Hg] LENORA STOKES COLORECTAL SURGEON-EXTRACORPOREAL CIRCULATION SPECIALIST [facility] 03-24-2023 10:57-0500 Body temperature 98.24 [degF] LENORA STOKES COLORECTAL SURGEON-EXTRACORPOREAL CIRCULATION SPECIALIST [facility] 03-24-2023 10:57-0500 Diastolic Blood Pressure Non-Invasive 60 mm[Hg] LENORA STOKSE COLORECTAL SURGEON-EXTRACORPOREAL CIRCULATION SPECIALIST [facility] 03-24-2023 10:57-0500 Heart rate 63 /min LENORA STOKES COLORECTAL SURGEON-EXTRACORPOREAL CIRCULATION SPECIALIST [facility] 03-24-2023 10:57-0500 Respiratory rate 18 /min LENORA STOKES COLORECTAL SURGEON-EXTRACORPOREAL CIRCULATION SPECIALIST [facility] 03-24-2023 10:57-0500 Systolic Blood Pressure Non-Invasive 124 mm[Hg] LENORA STOKES COLORECTAL SURGEON-EXTRACORPOREAL CIRCULATION SPECIALIST [facility] 11-09-2022 07:25-0400 Diastolic Blood Pressure Non-Invasive 69 1 KHURRAM HEBERT MD [facility] 11-09-2022 07:25-0400 Heart rate 75 /min KHURRAM HEBERT MD [facility] 11-09-2022 07:25-0400 Respiratory rate 16 /min KHURRAM HEBERT MD [facility] 11-09-2022 07:25-0400 Systolic Blood Pressure Non-Invasive 139 1 KHURRAM HEBERT MD [facility] 11-09-2022 07:03-0400 Body temperature 97.52 [degF] KHURRAM HEBERT MD [facility] 11-09-2022 07:03-0400 Diastolic Blood Pressure Non-Invasive 84 1 KHURRAM HEBERT MD [facility] 11-09-2022 07:03-0400 Heart rate 76 /min KHURRAM HEBERT MD [facility] 11-09-2022 07:03-0400 Respiratory rate 16 /min KHURRAM HEBERT MD [facility] 11-09-2022 07:03-0400 Systolic Blood Pressure Non-Invasive 144 1 KHURRAM HEBERT MD [facility] 11-09-2022 07:02-0400 Body height 152 cm KHURRAM HEBERT MD [facility] 11-09-2022 07:02-0400 Body weight 88 kg KHURRAM HEBERT MD [facility] 11-09-2022 07:02-0400 Body weight 38.09 kg/m2 KHURRAM HEBERT MD [facility] 10-20-2021 12:25-0400 diastolic 60 mm[Hg] CYNTHIA KENNEDY MD [facility] 10-20-2021 12:25-0400 Heart rate 72 /min CYNTHIA KENNEDY MD [facility] 10-20-2021 12:25-0400 systolic 119 mm[Hg] CYNTHIA KENNEDY MD [facility] 10-20-2021 12:09-0400 diastolic 55 mm[Hg] CYNTHIA KENNEDY MD [facility] 10-20-2021 12:09-0400 Heart rate 74 /min CYNTHIA KENNEDY MD [address] [place] [address] 10-20-2021 12:09-0400 Respiratory rate 16 /min CYNTHIA KENNEDY MD [address] [place] [address] 10-20-2021 12:09-0400 systolic 116 mm[Hg] CYNTHIA KENNEDY MD [address] [place] [address] 10-20-2021 11:55-0400 diastolic 58 mm[Hg] CYNTHIA KENNEDY MD [address] [place] [address] 10-20-2021 11:55-0400 Heart rate 78 /min CYNTHIA KENNEDY MD [address] [place] [address] 10-20-2021 11:55-0400 Respiratory rate 16 /min CYNTHIA KENNEDY MD [address] [place] [address] 10-20-2021 11:55-0400 systolic 122 mm[Hg] CYNTHIA KENNEDY MD [address] [place] [address] 10-20-2021 11:52-0400 Respiratory rate 16 /min CYNTHIA KENNEDY MD [address] [place] [address] 10-20-2021 11:28-0400 Reason For Taking VItal Signs CYNTHIA KENNEDY MD [address] [place] [address] 10-20-2021 08:27-0400 Body height 152.4 cm CYNTHIA KENNEDY MD [address] [place] [address] 10-20-2021 08:27-0400 Body temperature 97.7 [degF] CYNTHIA KENNEDY MD [address] [place] [address] 10-20-2021 08:27-0400 Body weight 87.1 kg CYNTHIA KENNEDY MD [facility] 10-20-2021 08:270400 Body weight 37.5 kg/m2 CYNTIHA KENNEDY MD [facility] Encounters Encounter Date Encounter Type Care Provider Facility Start: 12-13-2024 ambulatory Lenora Stokes Facility :[facility] Start: 11-29-2024 Registered Recurring Liz Coronado MARKETING SALES REPRESENTATIVE-C -Speech Therapy Work Phone: Start: 11-29-2024 ambulatory Liz Coronado Facility: [facility] Start: 11-23-2024 End: 11-23-2024 ambulatory 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 Phone: -Radiology [facility] Start: 11-23-2024 End: 11-23-2024 Patient encounter procedure Liz Coronado MARKETING SALES REPRESENTATIVE-C -Radiology [facility] Work Phone: Start: 11-23-2024 End: 11-23-2024 ambulatory Liz Coronado Facility:[facility] Start: 11-13-2024 End: 11-13-2024 Patient encounter procedure Liz Coronado MARKETING SALES REPRESENTATIVE-C -[facility] Work Phone: Start: 11-13-2024 End: 11-13-2024 ambulatory 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 Phone: -[facility] Start: 10-11-2024 End: 10-11-2024 ambulatory LENORA STOKES COLORECTAL SURGEON-EXTRACORPOREAL CIRCULATION SPECIALIST Facility:[facility] Start: 10-11-2024 End: 10-11-2024 SAME DAY STAY LENORA STOKES COLORECTAL SURGEON-EXTRACORPOREAL CIRCULATION SPECIALIST [facility] Start: 07-13-2024 End: 07-13-2024 ambulatory LENORA STOKES COLORECTAL SURGEON-EXTRACORPOREAL CIRCULATION SPECIALIST Facility:[facility] Start: 06-26-2024 End: 06-26-2024 ambulatory LENORA STOKES COLORECTAL SURGEON-EXTRACORPOREAL CIRCULATION SPECIALIST Facility:[facility] Start: 05-19-2024 End: 05-19-2024 ambulatory REGINA COLEY MD Facility:[facility] Start: 05-19-2024 End: 05-19-2024 SAME DAY STAY REGINA COLEY MD [facility] Start: 05-01-2024 End: 05-05-2024 ambulatory SKYLA MACO COLORECTAL SURGEON-EXTRACORPOREAL CIRCULATION SPECIALIST Facility:[facility] Start: 04-06-2024 End: 04-06-2024 ambulatory LENORA Ileana SHERRI COLORECTAL SURGEON-EXTRACORPOREAL CIRCULATION SPECIALIST Facility:[facility] Start: 04-06-2024 End: 04-06-2024 SAME DAY STAY LENORA S SHERRI COLORECTAL SURGEON-EXTRACORPOREAL CIRCULATION SPECIALIST [facility] Start: 04-04-2024 End: 04-04-2024 ambulatory RYLAND STOUT MD Facility:[facility] Start: 04-04-2024 End: 04-04-2024 Patient encounter procedure RYLAND STOUT MD [facility] Start: 01-07-2024 End: 01-07-2024 ambulatory REGINA COLEY MD Facility:[facility] Start: 01-07-2024 End: 01-07-2024 SAME DAY STAY REGINA COLEY MD [facility] Start: 09-28-2023 End: 09-28-2023 ambulatory LENORA Ileana SHERRI COLORECTAL SURGEON-EXTRACORPOREAL CIRCULATION SPECIALIST Facility:[facility] Start: 09-28-2023 End: 09-28-2023 SAME DAY STAY LENORA S SHERRI COLORECTAL SURGEON-EXTRACORPOREAL CIRCULATION SPECIALIST [facility] Start: 06-08-2023 End: 07-20-2023 ambulatory LENORA S SHERRI COLORECTAL SURGEON-EXTRACORPOREAL CIRCULATION SPECIALIST Facility:[facility] Start: 06-08-2023 End: 07-20-2023 Physical therapy management RYLAND STOUT MD [facility] Start: 03-24-2023 End: 03-24-2023 ambulatory LENORA S SHERRI COLORECTAL SURGEON-EXTRACORPOREAL CIRCULATION SPECIALIST Facility:[facility] Start: 03-24-2023 End: 03-24-2023 SAME DAY STAY LENORA Tejeda SHERRI COLORECTAL SURGEON-EXTRACORPOREAL CIRCULATION SPECIALIST [facility] Start: 02-22-2023 End: 02-22-2023 ambulatory KHURRAM HEBERT MD Facility:[facility] Start: 02-22-2023 End: 02-22-2023 Patient encounter procedure KHURRAM HEBERT MD [facility] Start: 11-30-2022 End: 11-30-2022 ambulatory KHURRAM HEBERT MD Facility:[facility] Start: 11-30-2022 End: 11-30-2022 Patient encounter procedure KHURRAM HEBERT MD [facility] Start: 11-09-2022 End: 11-09-2022 ambulatory KHURRAM HEBERT MD Facility:[facility] Start: 11-09-2022 End: 11-09-2022 SAME DAY STAY KHURRAM HEBERT MD [facility] Start: 10-12-2022 End: 10-12-2022 ambulatory KHURRAM HEBERT MD Facility:[facility] Start: 12-03-2021 End: 12-03-2021 Patient encounter procedure HANNA BARON MD [facility] Start: 10-20-2021 End: 10-20-2021 SAME DAY STAY CYNTHIA KENNEDY MD [facility] Start: 10-17-2021 End: 10-17-2021 Patient encounter procedure CYNTHIA KENNEDY MD [facility] Start: 09-23-2021 End: 09-23-2021 Patient encounter procedure CYNTHIA KENNEDY MD [facility] Start: 06-09-2021 End: 06-09-[address] HEBER ELIZABETH MD [facility] Procedures Date Procedure Procedure Detail Performing Clinician Start: 11-23-2024 Videoswallow 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 Phone: Start: 05-19-2024 PM Inj Spine L/S With [...] of Treatment Date Care Activity Detail Author [facility] Immunizations Immunization Date Immunization Notes Care Provider Mayda goetz 06-01-2024 zoster vaccine recombinant LENORA STOKES COLORECTAL SURGEON-EXTRACORPOREAL CIRCULATION SPECIALIST [facility] 12-14-2023 influenza virus vacc ine, unspecified formulation LENORA STOKES COLORECTAL SURGEON-EXTRACORPOREAL CIRCULATION SPECIALIST [facility] 12-14-2023 SARS-CoV-2 (COVID-19 ) mRNA-1273 vaccine LENORA STOKES COLORECTAL SURGEON-EXTRACORPOREAL CIRCULATION SPECIALIST [facility] 01-19-2023 influenza virus vacc ine, unspecified formulation RYLAND STOUT MD [facility] 01-19-2023 SARS-CoV-2 (COVID-19 ) mRNA-[id number] RYLAND STOUT MD [facility] 04-28-2022 pneumococcal polysaccharide vaccine, 23 valent; Translations: [Pneumovax 23] KHURRAM HEBERT MD [facility] 01-27-2022 influenza virus vacc ine, unspecified formulation KHURRAM HEBERT MD [facility] 01-06-2022 SARS-CoV-2 (CV19)mRNA-1273 bivalent vac KHURRAM HEBERT MD [facility] 08-14-2021 SARS-CoV-2 (COVID-19 ) mRNA-1273 vaccine KHURRAM HEBERT MD [facility] 01-28-2021 influenza, high dose seasonal, preservative-free; Translations: [Fluad Quadrivalent PF ] DR HEBER ELIZABETH MD [facility] 12-19-2020 SARS-CoV-2 (COVID-19 ) mRNA-1273 vaccine KHURRAM HEBERT MD [facility] 06-19-2020 SARS-CoV-2 (COVID-19 ) mRNA-1273 vaccine KHURRAM HEBERT MD [facility] Comment on above: Result Comment: 2022: [id number] 04-25-2020 SARS-CoV-2 (COVID-19 ) mRNA-[address] HEBER ELIZABETH MD [facility] 01-24-2020 influenza virus vacc ine, unspecified formulation DR HEBER ELIZABETH MD [facility] 02-02-2019 influenza, injectabl e, quadrivalent, preservative free; Translations: [Fluarix PF Quadrivalent ] DR HEBER ELIZABETH MD [facility] 01-18-2018 influenza virus vacc ine, unspecified formulation DR HEBER ELIZABETH MD [facility] 02-09-2017 influenza virus vacc ine, unspecified formulation DR HEBER ELIZABETH MD [facility] 01-04-2016 influenza virus vacc ine, unspecified formulation DR HEBER ELIZABETH MD [facility] 12-30-2015 influenza virus vacc ine, unspecified formulation DR HEBER ELIZABETH MD [facility] 01-18-2015 influenza virus vacc ine, unspecified formulation DR HEBER ELIZABETH MD [facility] 01-03-2015 influenza virus vacc ine, unspecified formulation DR HEBER ELIZABETH MD [facility] 06-12-2014 pneumococcal conjuga te vaccine, [address] HEBER ELIZABETH MD [facility] 12-22-2013 influenza virus vacc ine, unspecified formulation DR HEBER ELIZABETH MD [facility] 08-18-2013 tetanus toxoid, redu alberta diphtheria toxoid, and acellular pertussis vaccine, adsorbed DR HEBER ELIZABETH MD [facility] 12-27-2012 influenza virus vacc ine, unspecified formulation DR HEBER ELIZABETH MD [facility] 01-25-2012 influenza virus vacc ine, unspecified formulation DR HEBER ELIZABETH MD [facility] 12-30-2005 hepatitis B pediatri c vaccine DR HEBER ELIZABETH MD [facility] 07-29-2005 adenovirus, type 4 a nd type 7, live, oral DR HEBER ELIZABETH MD [facility] 07-29-2005 hepatitis B pediatri c vaccine DR HEBER ELIZABETH MD [facility] 06-24-2005 hepatitis B pediatri c vaccine DR HEBER ELIZABETH MD [facility] 06-24-[address], [address] HEBER ELIZABETH MD [facility] 08-14-2004 pneumococcal polysaccharide vaccine, [address] HEBER ELIZABETH MD [facility] Payers Date Payer Category Payer Self-pay 2024 Private Health Insurance [id number] 2012 Private Health Insurance [id number] 1935 Unknown [id number] 2.16.8 [id number] 1936 Unknown [id number] 2.16.8 40.1.518440.3.579.2.62 1936 Unknown [id number] 2.16.8 40.1.552637.3.579.2. 1936 Unknown [id number] 2.16.8 40.1.847714.3.579.2.7 1936 Unknown [id number] 2.16.8 40.1.489231.3.579.2. 1936 Unknown [id number] 2.16.8 40.1.705909.3.579.2.627 1936 Unknown [id number] 2.16.8 40.1.345631.3.579.2. 1936 Unknown [id number] 2.16.8 40.1.896576.3.579.2.7 1936 Unknown [id number] 2.16.8 40.1.257880.3.579.2.7 1936 Unknown [id number] 2.16. 840.1.606253.3.579.2.7 1936 Unknown [id number] 2.16.8 40.1.258317.3.579.2. 1936 Unknown [id number] 2.16.8 40.1.722879.3.579.2.627 1936 Unknown [id number] 2.16.8 40.1.932299.3.579.2. 1936 Unknown [id number] 2.16.8 40.1.446831.3.579.2.627 1936 Unknown [id number] 2.16.8 40.1.522274.3.579.2.627 1936 Unknown [id number] 2.16.8 40.1.495012.3.579.2.627 Unknown [id number] 2.16.8 40.1.817041.3.579.2.462 Unknown [id number] 2.16.8 40.1.046279.3.579.2.462 Unknown [id number] 2.16.8 40.1.920552.3.579.2.462 Unknown [id number] 2.16.8 40.1.204775.3.579.2.462 Social History Date Type Detail Facility Start: 02-02-2019 End: 11-29-2024 Never smoked tobacco (finding) [facility] Comment on above: No smoke exposure Start: 1935 Sex Assigned At Female [facility] Sexual Orientation [facility] Start: 02-27-2019 Sex Female (finding) [facility] Functional Status Date Assessment Result Facility 05-19-2024 Functional Status Repositions self [facility] 01-07-2024 Functional Status Standard Safet y Precautions maintained [facility] 01-07-2024 Functional Status Repositions self [facility] 11-09-2022 Functional Status Awake, Resting [facility] 10-20-2021 Functional Status Ambulating in room, Awake [facility] 10-20-2021 Functional Status [facility] 10-20-2021 Functional Status Maintained [facility] Mental Status Date Assessment Result Facility 05-19-2024 Mental Status Oriented x 4 [facility] 01-07-2024 Mental Status Oriented x 4 [facility] 11-09-2022 Mental Status Oriented x 4 [facility] 10-20-2021 Mental Status Orientation Oriented x 4 [facility] 10-20-2021 Mental Status [facility] Clinical Notes 07-15-2021 to 11-23-2024 Note Date & Type Note Facility 11-23-2024 Procedure note [facility] 11-13-2024 Evaluation note Diagnosis Onset Date Resolution Esophageal dysmotility acute Au 2024 2:16pm Regurgitation of food acute Nov 2:16pm Chronic lymphocytic leukemia chronic November 13 2:16pm [facility] Work Phone: 1(642) 924-610807-09-2025 Nurse Progress note patient tolerated prolia injection without signs or symptoms of a reaction Digitally Signed by Bernie Rahman RN on 10/11/2024 01:50 PM [facility]02-14-2025 Hospital Discharge instructions Patient Education 05/19/2024 12:41:49 Local Anesthesia, [...] what activities are safe for you. Take jmqy-gfs-nlgpqhb and prescription medicines only as told by [...] 09/10/2017 Document Revised: 03/04/2018 Document Reviewed: 09/10/2017 [employer] Patient Education 2020 [employer]. 05/19/2024 12:41:40 Epidural Steroid Injection Epidural Steroid [...] including vitamins, herbs, eye drops, creams, and igfj-qxb-asxbltw medicines. Any problems you or family members [...] 06/28/2008 Document Revised: 03/04/2018 Document Reviewed: 07/07/2016 [employer] Patient Education 2020 [employer]. Follow Up Care 05/05/2024 07:29:29 With:REGINA COLEY MD Address: [address] [place] [address] [place] [address] [phone] When: Unknown [facility] 02-14-2025 Note* Exam Date Time Procedure Performing Provider Status 05/19/24 2:31 PM XR Fluoro Guide for Therapy Injection Modified [id number] ORIGINAL Images acquired, not reported on this accession number. [facility]02-14-2025 Note Discharge Instructions Thank you for allowing [facility] to assist you with your healthcare needs. The following is importantdischarge information regarding your hospital visit. Your Care Team LENORA STOKES COLORECTAL SURGEON-EXTRACORPOREAL CIRCULATION SPECIALIST DR. 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 Take ulbo-hto-qaiidia and prescription medicines only as told by [...] 09/10/2017 Document Revised: 03/04/2018 Document Reviewed: 09/10/2017 [employer] Patient Education 2020 [employer]. Epidural Steroid Injection An epidural steroid injection [...] including vitamins, herbs, eye drops, creams, and prox-ude-gzqezqg medicines. Any problems you or family members [...] 06/28/2008 Document Revised: 03/04/2018 Document Reviewed: 07/07/2016 [employer] Patient Education 2020 [employer] Additional Information VACCINATE! IT SAVES LIVES! Members of the community who have not yet received the COVID-19 vaccine and would like to receive it can visit one of [facility] vaccine clinics. There are many vaccine clinic locations within the [facility]. For locations and available times, please visit [email or web address] It is important to note that some COVID mobile vaccine clinics are held outdoors and may be canceled in rainy or stormy conditions. To learn more about pediatric vaccinations (ages 5-11), we invite you to visit the [facility] webpage. https://www.[email or web address]/pages/[email or web address]-Iumwy-Aqzlakabcmt-Shenvsyggy-[email or web address]-Bhf stions.htmlTo learn more about the COVID-19 vaccine, we invite you to visit the CDC website for a list of frequently asked questions.https://www.cdc.gov/coronavirus/2019-ncov/vaccines/faq.html [facility] Patient Portal Access Instructions: Stay connected with your healthcare team and access your personal medical information anytime with the [facility] Patient Portal. Please follow the directions below to create your [facility] account: 1.Access the email account you provided upon registration to the hospital/physician office.2.Look for an invitation email from [facility].3.Open the email and access the invitation link: AcceptInvitation to [facility].4.Fill in the required rodriguez to create your account. To access your account, visit meebee[facility]. Click the blue button labeled Access Patient [...] who you will allowto register on the [facility] Patient Portal for access to your information. You can also access the [facility] Patient Portal on the [employer] [email or web address]. Simply click on Patient Portal and then log into your account. If you would like to receive a full copy of your medical records, please contact the [facility] Medical Records Department by calling [phone], Wednesday through Wednesday between 8 a.m. and [...] Call your local pharmacy or go to [email or web address] to find one close to you.3.Make use of household items: Use cat litter or old coffee grounds to dispose medications if other options arenot available. Mix your drugs with these household products, seal them in an airtight container andthrow it into the garbage. Call [facility]: [phone] to be sure your drugs can be [...] aware that I should contact my doctor. 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 Patient left the unit without incident. Digitally Signed by Heather Allen RN on 04/06/2024 11:33 AM [facility]12-31-2024 Note* Exam Date Time Procedure Performing Provider Status 04/04/24 2:00 PM MRI Brain w/ + w/o Contrast RINA CERDA MD; Auth (Verified) [id number] ORIGINAL HISTORY: Vertigo COMPARISON: No TECHNIQUE: 1. [...] 04/04/2024 3:36:14 PM Ordering Provider: RYLAND STOUT [facility]10-04-2024 Hospital Discharge instructions Patient Education 01/07/2024 13:57:47 [...] including vitamins, herbs, eye drops, creams, and jyii-wbv-hhhlcwn medicines. Any problems you or family members [...] provider tells you to take them. Taking iask-aoo-jpkfrbp medicines, vitamins, herbs, and supplements. What happens during the procedure? Your health care provider will feel for trigger points. A marker may be used to washoe the area forthe injection. The skin over [...] 03/10/2012 Document Revised: 05/03/2019 Document Reviewed: 05/03/2019 [employer] Patient Education 2019 [employer]. Follow Up Care 12/31/2023 07:42:05 With:REGINA COLEY MD Address: [address] [place] [phone]- [phone] When: Unknown [facility] 10-04-2024 Note ORIGINAL Images acquired, not reported on this accession number.[facility]10-04-2024 Note Discharge Instructions Thank you for allowing [facility] to assist you with your healthcare needs. The following is importantdischarge information regarding your hospital visit. Your Care Team LENORA STOKES COLORECTAL SURGEON-EXTRACORPOREAL CIRCULATION SPECIALIST DR. COLEY What to do next Follow Up Appointments Follow Up with REGINA COLEY MD Where:[address] [place] [phone]- [phone] Allergies Vicodin (Moderate) Nausea Accupril Unknown Crestor [...] including vitamins, herbs, eye drops, creams, and dbxx-mub-ybhtlmg medicines. Any problems you or family members [...] provider tells you to take them. Taking tonf-luo-hiupxoq medicines, vitamins, herbs, and supplements. What happens during the procedure? Your health care provider will feel for trigger points. A marker may be used to washoe the area forthe injection. The skin over [...] 03/10/2012 Document Revised: 05/03/2019 Document Reviewed: 05/03/2019 [employer] Patient Education 2020 [employer] Additional Information VACCINATE! IT SAVES LIVES! Members of the community who have not yet received the COVID-19 vaccine and would like to receive it can visit one of [facility] vaccine clinics. There are many vaccine clinic locations within the [facility]. For locations and available times, please visit [email or web address] It is important to note that some COVID mobile vaccine clinics are held outdoors and may be canceled in rainy or stormy conditions. To learn more about pediatric vaccinations (ages 5-11), we invite you to visit the [facility] webpage. https://www.[facility].org/pages/3748-Rhsti-Txdnhykyqqi-Lcnqhmfdab-Azedm-Dak stions.htmlTo learn more about the COVID-19 vaccine, we invite you to visit the CDC website for a list of frequently asked questions.https://www.cdc.gov/coronavirus/2019-ncov/vaccines/faq.html [facility] Patient Portal Access Instructions: Stay connected with your healthcare team and access your personal medical information anytime with the [facility] Patient Portal. Please follow the directions below to create your [facility] account: 1.Access the email account you provided upon registration to the hospital/physician office.2.Look for an invitation email from [facility].3.Open the email and access the invitation link: AcceptInvitation to [facility].4.Fill in the required rodriguez to create your account. To access your account, visit [email or web address]. Click the blue button labeled Access Patient Portal and then log in with the username and password that you created in the steps above. You will be able to view your test results, lab results, a summary of your visits, upcoming appointments and more. There is also a convenient messaging option where you can send secure messages to your p saravider. In addition, you will have the ability to download any documents or summaries to your computer and/or send the information securely to a physician. Remember that your healthcare information is confidential, so carefully consider who you will allowto register on the [facility] for access to your information. You can also access the [facility] on the [facility] krzysztof. Simply click on Patient Portal and then log into your account. If you would like to receive a full copy of your medical records, please contact the [facility] Medical Records Department by calling [phone], Wednesday through Wednesday between 8 a.m. and [...] Call your local pharmacy or go to http://benchee/0Q0Av8b to find one close to you.3.Make use of household items: Use cat litter or old coffee grounds to dispose medications if other options arenot available. Mix your drugs with these household products, seal them in an airtight container andthrow it into the garbage. Call [facility]: [phone] to be sure your drugs can be [...] aware that I should contact my doctor. 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 Take xfnd-tsp-jmfgxon and prescription medicines only as told by your health care provider. Keep all follow-up visits as told by your health care provider. This is important. Contact a health care provider if: You have a fever. You continue to have pain and soreness around the injection site, even after taking dwwj-xyj-jhjsfsq pain medicine. You have severe, sudden, or [...] 07/07/2011 Document Revised: 03/04/2018 Document Reviewed: 07/07/2016 [employer] Patient Education 2020 [employer]. Follow Up Care 11/04/2022 08:47:52 With:KHURRAM HEBERT Address: [address] [place] [address] [address] [facility] [place] [address]- [phone] Business (1) When: only if needed [facility] 08-07-2023 Summary of episode note Discharge Instructions Thank you for allowing [facility] to assist you with your healthcare needs. The following is importantdischarge information regarding your hospital visit. Your Care Team LENORA STOKES APRN-JW Your Diagnosis Spinal stenosis What to do next Follow Up Appointments Follow Up with KHURRAM HEBERT When Only if needed Where: [address] [place] [address] [address] [facility] [place] [address]- [phone] Business (1) Allergies Vicodin (Nausea) Accupril (Unknown) [...] the bandage (dressing) after 24 hours. Take sewf-hgf-xcajepy and prescription medicines only as told by your health care provider. Keep all follow-up visits as told by your health care provider. This is important. Contact a health care provider if: You have a fever. You continue to have pain and soreness around the injection site, even after taking oijm-egw-osgjyuz pain medicine. You have severe, sudden, or [...] 07/07/2011 Document Revised: 03/04/2018 Document Reviewed: 07/07/2016 [employer] Patient Education 2020 [employer] Additional Information VACCINATE! IT SAVES LIVES! Members of the community who have not yet received the COVID-19 vaccine and would like to receive it can visit one of [facility] vaccine clinics. There are many vaccine clinic locations within the [facility]. For locations and available times, please visit [email or web address].gov/. It is important to note that some COVID mobile vaccine clinics are held outdoors and may be canceled in rainy or stormy conditions. To learn more about pediatric vaccinations (ages 5-11), we invite you to visit the [facility] webpage. https://www.[facility].org/pages/1544-Psoiy-Pdikuzenowz-Hnmmqxtjtj-Mehmg-Jew stions.htmlTo learn more about the COVID-19 vaccine, we invite you to visit the CDC website for a list of frequently asked questions.https://www.cdc.gov/coronavirus/2019-ncov/vaccines/faq.html [facility] Patient Portal Access Instructions: Stay connected with your healthcare team and access your personal medical information anytime with the [facility] Patient Portal. Please follow the directions below to create your [facility] account: 1.Access the email account you provided upon registration to the hospital/physician office.2.Look for an invitation email from [facility].3.Open the email and access the invitation link: AcceptInvitation to [facility].4.Fill in the required rodriguez to create your account. To access your account, visit [email or web address]. Click the blue button labeled Access Patient Portal and then log in with the username and password that you created in the steps above. You will be able to view your test results, lab results, a summary of your visits, upcoming appointments and more. There is also a convenient messaging option where you can send secure messages to your p GoCardlessvider. In addition, you will have the ability to download any documents or summaries to your computer and/or send the information securely to a physician. Remember that your healthcare information is confidential, so carefully consider who you will allowto register on the [facility] Patient Portal for access to your information. You can also access the [facility] Patient Portal on the [facility] krzysztof. Simply click on Patient Portal and then log into your account. If you would like to receive a full copy of your medical records, please contact the [facility] Medical Records Department by calling [phone], Wednesday through Wednesday between 8 a.m. and [...] Call your local pharmacy or go to http://bit.ly/3H6Vd1e to find one close to you.3.Make use of household items: Use cat litter or old coffee grounds to dispose medications if other options arenot available. Mix your drugs with these household products, seal them in an airtight container andthrow it into the garbage. Call [facility]: [phone] to be sure your drugs can be [...] aware that I should contact my doctor. 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 This information is not intended to replace [...] until you are awake and alert. Take brof-mjg-vhmeqdi and prescription medicines only as told by [...] 01/10/2014 Document Revised: 03/04/2018 Document Reviewed: 07/11/2016 [employer] Patient Education 2020 [employer] Follow Up Care 09/19/2021 11:56:38 With:CYNTHIA KENNEDY MD Address: [address] [place] [address] [address] [place] [address]- When:11/19/2021 10:45:00 [facility] 07-18-2022 Summary of episode note Discharge Instructions Thank you for allowing [facility] to assist you with your healthcare needs. The following is importantdischarge information regarding your hospital visit. Your Care Team LENORA STOKES APRN-EXTRACORPOREAL CIRCULATION SPECIALIST What to do next Scheduled Follow-Up Appointments Appointment Type When Where Contact InformationCV OV 11/19/2021 10:45 AM EDT [facility] Follow Up Appointments Follow Up with CYNTHIA KENNEDY MD When 11/19/2021 10:45 AM EDT Where: [address] [facility] [address] [place] [address]- The Following Activity and Diet Have Been [...] Document Reviewed: 03/23/2014 ExitCare Patient Information 2015 [employer]. This information is not intended to replace [...] until you are awake and alert. Take kmiv-jnw-ahiraqd and prescription medicines only as told by [...] 01/10/2014 Document Revised: 03/04/2018 Document Reviewed: 07/11/2016 [employer] Patient Education 2020 [employer] Additional Information VACCINATE! IT SAVES LIVES! Members of the community who have not yet received the COVID-19 vaccine and would like to receive it can visit one of [facility] vaccine clinics. There are many vaccine clinic locations within the [facility]. For locations and available times, please visit https://[email or web address].gov/. It is important to note that some COVID mobile vaccine clinics are held outdoors and may be canceled in rainy or stormy conditions. To learn more about pediatric vaccinations (ages 5-11), we invite you to visit the [facility] webpage. https://www.[facility].org/pages/0019-Hmmha-Swafxgvjdgm-Mwsniwumwz-Yszct-Syi stions.htmlTo learn more about the COVID-19 vaccine, we invite you to visit the [facility] website for a list of frequently asked questions. https://[facility].org/assets/Kqbjcbfj-uwk-Gsehbixe/lbpvg-Lwljutb-Ltwbxkhsli _Asked-Questions.pdf [facility] Patient Portal Access Instructions: Stay connected with your healthcare team and access your personal medical information anytime with the [facility] Patient Portal.If you would like a full copy of your medical records, please contact the [facility] Medical Records Department, Wednesday through Wednesday between 8a.m. and 4:30p.m. Please follow the directions below to access the portal: 1.Access the email account you provided upon registration to the hospital.2.Look for an invitation email from [facility].3.Open the email and access the invitation link: Accept Invitation to [facility]4.Fill in the required rodriguez to create your account. Sign into [email or web address] with your username and password that you [...] you will allow to register on the [facility] Patient Portal for access to your information. You can also access the [facility] Patient Portal on the [facility] krzysztof. Simply click on Health Records under RivalSoftta and then click on the FoxyTunes logo. HOW TO SAFELY DISPOSE OF PRESCRIPTION [...] Call your local pharmacy or go to http://Tribe.L2C/6M7Oz7j to find one close to you.3.Make use of household items: Use cat litter or old coffee grounds to dispose medications if other options arenot available. Mix your drugs with these household products, seal them in an airtight container andthrow it into the garbage. Call [facility]: [phone] to be sure your drugs can be [...] been reviewed and explained to me and IPOORNIMA ELIZABETH A understand my current condition and have read and understand these discharge instructions. I have received a written copy of the plan/instructions. If I have questions, I am aware that I should contact my doctor. 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 Signature: Date/Time: Relationship to Patient: Witness Name/Signature: Date/Time: [id number] Evaluation + Plan note Future Scheduled Tests Radiology* BD Bone Density DEXA Axial Skeleton 07/15/21 [facility] Evaluation + Plan note Future Appointments Appointment Date:07/15/2021 02:00:00 PM Scheduled Provider: Location:[facility] Appointment Type:BD Bone Density DEXA Axial Skeleton Future Scheduled Tests Radiology* BD Bone Density DEXA Axial Skeleton 07/15/21 [facility] Evaluation + Plan note Future Appointments Appointment Date:10/20/2021 10:00:00 AM Scheduled Provider: Location:[facility] Appointment Type:CV Procedure - Heart Lab/Hybrid OR Future Scheduled Tests Laboratory* Basic Metabolic Panel 09/19/21 * Magnesium Level 09/19/21 * Thyroid Stimulating Hormone 09/19/21 * Complete Blood Count 09/19/21 Radiology* BD Bone Density DEXA Axial Skeleton 07/15/21 [facility] evaluation + Plan note Future Appointments Appointment Date:10/20/2021 10:00:00 AM Scheduled Provider: Location:[facility] Lab Appointment Type:CV Procedure - Heart Lab/Hybrid OR Appointment Date:11/19/2021 10:45:00 AM Scheduled Provider: Location:[facility] Appointment Type:CV OV Future Scheduled Tests Radiology* BD Bone Density DEXA Axial Skeleton 07/15/21 [facility] Evaluation + Plan note Future Appointments Appointment Date:11/19/2021 10:45:00 AM Scheduled Provider: Location:[facility] Appointment Type:CV OV Future Scheduled Tests Radiology* BD Bone Density DEXA Axial Skeleton 07/15/21 [facility] Evaluation + Plan note Future Appointments Appointment Date:02/22/2023 01:15:00 PM Scheduled Provider:KHURRAM HEBERT MD Location:[facility] Appointment Type:PM OV [facility] Evaluation + Plan note Future Appointments Appointment Date:10/04/2023 12:45:00 PM Scheduled Provider:KIMBERLY JAVIER Location:[facility] Appointment Type:PM OV [facility] Evaluation + Plan note Future Appointments Appointment Date:04/06/2024 11:00:00 AM Scheduled Provider: Location:[facility] Appointment Type:INF/OSP Injection - Prolia [facility] Evaluation + Plan note Future Appointments Appointment Date:06/02/2024 10:20:00 AM Scheduled Provider:REGINA COLEY MD Location:[facility] Appointment Type:PM OV [facility] Evaluation note* Diagnosis Onset Date Resolution Status Admit Date Esophageal dysmotility acute Au 2024 2:16pm Regurgitation of food acute Nov us2024 2:16pm Chronic lymphocytic leukemia chronic November 13, 2024 2:16pm [facility] Work Phone: Hospital course Narrative No data available for this section [facility] Hospital Discharge instructions No data available for this section [facility] Note* CYNTHIA KENNEDY MD: SIGN, VERIFY Event Display: Cardiac Catheterization -CV [facility] Progress note No data available for this section [facility] Reason for referral (narrative)No reason for referral [facility] Work Phone: Summary Purpose Family History [...] 2024 2:16pm Chronic lymphocytic leukemia November 2:16pm Chief Complaint Admit Date DYSPHAGIA -PREVIOUSLY HAD STRETCHING DON E November 13, 2024 2:16pm VOMITING November 23, 2024 12 :26pm OROPHARYNGEAL DYSPHAGIA/RX SCANNED IN [facility] 2024 12:44pm Additional Source Comments INFORMATION SOURCE (unrecogn ized section and content) DATE CREATED AUTHOR 01/22/2020 [facility] Aixa Maradiaga DATE CREATED AUTHOR AUTHOR'S ORGANIZ ATION 09/29/2023 [facility] oundation (MD) DATE CREATED AUTHOR AUTHOR'S ORGANIZ ATION 05/10/2024 [facility] DATE CREATED AUTHOR AUTHOR'S ORGANIZ ATION 10/15/2024 [facility] DATE CREATED AUTHOR AUTHOR'S ORGANIZ ATION 12/12/2024 [facility] Care Team (unrecognized sect ion and content) Personnel Name: LENORA STOKES Address: Address: [address] [place] [id number]- Care Team Personnel Name: LENORA STOKES Position: P4 Advanced Practice Nurse Med Service: Employed Provider Member Role: Primary Care Physician Address: Address: [address] [place] [id number] Care Team Related Persons Name: Prabhu NOGUERA Address: [place] [address] [place], [place] [id number] [place] Care Team Personnel Name: LENORA STOKES COLORECTAL SURGEON-EXTRACORPOREAL CIRCULATION SPECIALIST Position: P4 Advanced Practice Nurse Med Service: Employed Provider Member Role: Primary Care Physician Address: Address: [address] [place] [address]- [place] Care Team Related Persons Name: Prabhu NOGUERA Address: [place] [address] [place], [place] [id number] [place] Care Team Personnel Name: LENORA STOKES COLORECTAL SURGEON-EXTRACORPOREAL CIRCULATION SPECIALIST Position: P4 Advanced Practice Nurse Member Role: Primary Care Physician Address: Address: [address] [place] [id number]- [place] Care Team Related Persons Name: Prabhu NOGUERA Address: [place] [address] [place] [phone] Patient Care team informatio n (unrecognized section and content) Team Status: Active Member Role/Relationship Status Dates Lenora Stokes NP, MARKETING SALES REPRESENTATIVE-C Family Provider Active Lenora Stokes NP, MARKETING SALES REPRESENTATIVE-C Primary Care Provider Active Team Status: Inactive Member Role/Relationship Status Dates Lenora Stokes NP, MARKETING SALES REPRESENTATIVE-C Primary Care Provider Active Start: November 13, 2024 End: November 13, 2024 Lenora Stokes NP, MARKETING SALES REPRESENTATIVE-C Referring Provider Active Start: November 13, 2024 End: November 13, 2024 ANTONIO MartinezC Attending Provider Active S tart: November 13, 2024 End: November 13, 2024 Team Status: Active Member Role/Relationship Status Dates Lenora Stokes MARKETING SALES REPRESENTATIVE, MARKETING SALES REPRESENTATIVE-C Primary Care Provider Active Team Status: Inactive Member Role/Relationship Status Dates Lenora Stokes NP, MARKETING SALES REPRESENTATIVE-C Primary Care Provider Active Start: November 23, 2024 End: November 23, 2024 EMILIA Martinez Attending Provider Active S tart: November 23, 2024 End: November 23, 2024 Liz Coronado NP-Chely Referring Provider Active S tart: November 23, 2024 End: November 23, 2024 Team Status: Active Member Role/Relationship Status Dates Lenora Stokes NP, MARKETING SALES REPRESENTATIVE-C Primary Care Provider Active Start: November 29, 2024 EMILIA Martinez Attending Provider Active S tart: November 29, 2024 EMILIA Martinez Referring Provider Active S tart: November 29, 2024 Goals (unrecognized section and content) Goals [...] BE BASED ON THE PRIMARY CLINICAL RECORDS. [facility] [employer] [facility]. provides no warranty or guarantee of the accuracy or completeness of information in this document.
[2024-12-13] MEDS: Lactated Ringers 1,000 ML 15 ML IV (06:30)
--- NOTE | 2024-12-13 06:41 | PCM.HP.STD ---
[facility] - General General Date of Admission: 12/13/24 Date of Service: 12/13/24 Chief Complaint: Difficulty swallowing [facility] Narrative ANGELES LIUURGEWilla, is a 89 F who presents with the Chief Complaint: Difficulty swallowing She presents for exam with her . History of last EGD with Dr. Saldana, done on 06.13.2018. 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 Random tissue biopsies taken. Pathology demonstrated squamous esophageal mucosa without significant microscopic pathology. She reports daily morning phlegm and often spits up portions of her food during meals. 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 Her states that he was looking up difficulty swallowing in relation to CLL and has found on multiple sites that there was a correlation to the presence of white blood cells in the esophageal tissue that can cause increased difficulty with swallowing. She has to take her larger pills stuffed in a piece of banana to help it go down. She states that she struggles with dry white meat from chicken and bread buns as well. She denies difficulties with her bowels, has daily complete BMs without straining. FORMERLY [facility], [facility] Medical History Wears hearing aid Post-menopausal Cancer Rash Arthritis Easy bruising High cholesterol History of leukemia Back pain Injury of back Injury of head and neck Difficulty swallowing Non-smoker History of pain when walking History of edema Cardiology follow-up encounter Hypogammaglobulinemia Hypertension Diabetes mellitus Home Medications ?Medication ?Instructions ?Recorded ?Last Taken ?Type Aspir-Low 81 mg PO DAILY 07/01/16 Unknown History Calcium Carb/Vitamin D 2 tab PO DAILY 07/01/16 Unknown History furosemide 20 mg tablet 20 mg PO DAILY 07/01/16 Unknown History atorvastatin 10 mg tablet 10 mg PO DAILY 08/04/22 Unknown History potassium chloride 20 mEq 20 meq PO BID 08/04/22 Unknown History tablet,extended release(part/cryst) omeprazole 20 mg capsule,delayed 20 mg PO BID #60 caps 11/13/24 Unknown Rx release biotin 5 mg tablet 5 mg PO DAILY 12/11/24 Unknown History denosumab 60 mg/mL subcutaneous 60 mg subcut .QEVERY 6 MONTHS 12/11/24 Unknown History syringe (Prolia) meclizine 25 mg tablet 25 mg PO BID PRN PRN motion 12/11/24 Unknown History sickness turmeric 400 mg capsule 400 mg PO DAILY 12/11/24 Unknown History Allergy/AdvReac Type Severity Reaction Status Date / Time Penicillins (PCN) AdvReac Intermediate Pain in Verified 12/13/24 06:06 joints Family History Mother Hypertension Heart disease Father Heart disease Diabetes Surgical History History of cardiac catheterization History of pituitary surgery History of back surgery History of bilateral knee replacement Social History Smoking Status: Never smoker ROS Constitutional Constitutional: Denies fatigue, fever(s), poor appetite, weight gain or weight loss Gastrointestinal Gastrointestinal: Denies belching, bloating, change in bowel habits, change in stool character, chewing difficulty, coffee ground emesis, constipation, cramping, diarrhea, dyspepsia, dysphagia, early satiety, excessive flatus, fecal incontinence, heartburn, hematemesis, hematochezia, hemorrhoids, loose stools, melena, nausea, odynophagia, rectal bleeding, tenesmus, vomiting or weight changes Vital Signs Vital Signs Vital Signs: 12/13/24 06:30 12/13/24 06:30 Temperature 98.5 F Temperature Source Temporal Pulse Rate 72 Respiratory Rate 17 Respiratory Pattern Normal Blood Pressure 192/73 H Blood Pressure Mean 112 Blood Pressure Source Monitor Blood Pressure Position Semi-Fowlers Blood Pressure Location Right Arm Pulse Ox 99 Oxygen Delivery Method Room Air Weight Weight: 182 lb 15.739 oz Body Mass Index (BMI) 38.2 Physical Exam Const alert, oriented x3, no apparent distress and healthy appearing General Appearance: cooperative GI normal to inspection, nondistended, normoactive bowel sounds, soft to palpation, non-tender and non-distended Percussion: normal to percussion Rectal Exam: deferred Assessment & Plan Assessment/Plan (1) Esophageal dysmotility: (2) Regurgitation of food: PLAN: Assessment and Plan Assessment and Plan (1) Chronic lymphocytic leukemia: Status: Chronic Comment: Lymphocytosis-asymptomatic. Clinically stable. (2) Esophageal dysmotility: Status: Acute (3) Regurgitation of food: Status: Acute Orders: Orders Swallowing Function w/Video Today C91.10 - Chronic lymphocytic leukemia of B-cell type not having achieved remission, K22.4 - Dyskinesia of esophagus, R11.10 - Vomiting, unspecified Medications: New omeprazole Take 30minutes before eating breakfast and supper. 20 mg PO BID 60 caps 3RF Plan ANGELES NOGUERA, is a 89 F who presents to the office today for establishment with [facility] regarding concerns for difficulty swallowing. Discussed care plan with her and her present. omeprazole 20mg PO twice daily 30minutes before eating breakfast and supper schedule EGD swallowing function w/video office FU 2wks after endoscopy
--- NOTE | 2024-12-13 06:46 | PCM.PRE.AN2 ---
ASA Classification* ASA Classification ASA Classification: 3 Assessment & Plan Anesthesia* Anesthesia Assessment Anesthesia Assessment: Discussed sedation and/or anesthesia options, risks, benefits, and alternatives with patient/parents/legal guardian/POA. Questions invited. The patient/parents/legal guardian/POA seems to understand and agrees to proceed with anesthesia plan. Reviewed the physical assessment, medical history, allergy history and patient home medications list prior to surgery/procedure/anesthetic and documented any changes. Performed airway and anesthesia risk assessments. Anesthesia Type Anesthesia Type: MAC History Source History Obtained from:: Patient, Chart and Significant Other (Daughter) Anesthesia Focused Assessment* Temperature: 98.5 F Pulse Rate: 72 Blood Pressure: 192/73 Respiratory Rate: 17 Pulse Ox: 99 Oxygen Delivery Method: Room Air Airway Assessment Mouth opens: >3 cm Mallampati Score: II Teeth Condition: Intact and Missing Neck Range of motion (ROM): Limited ROM Labs Anesthesia Preop lab: CBC WBC 31.0 K/mm3 (4.4-11.0) H* 08/03/23 13:08/03/23 RBC 4.56 M/mm3 (4.2-5.4) 08/03/23 13:08/03/23 Hgb 13.0 g/dL (12.0-15.0) 08/03/23 13:08/03/23 Hct 41.0 % (37-47) 08/03/23 13:08/03/23 Plt Count 204 K/mm3 (150-450) 08/03/23 13:08/03/23 CHEMISTRY Potassium 4.4 mmol/L (3.5-5.1) 08/03/23 13:08/03/23 Sodium 141 mmol/L (136-145) 08/03/23 13:08/03/23 Magnesium 1.8 mg/dL (1.8-2.4) 06/15/16 13:33 06/15/16 BUN 19 mg/dL (7-18) H 08/03/23 13:08/03/23 Creatinine 0.75 mg/dL (0.55-1.02) 08/03/23 13:08/03/23 Glucose 116 mg/dL (74-106) H 08/03/23 13:08/03/23 COAG Pre-Assessment Diagnosis/Proposed Procedure Planned Operative Procedure(s): EGD Anesthesia History 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 When Was Last Pacemaker Check QUESTION #4 FULL TEXT: You/Your Family Experience fever (hyperthermia) with Anesthesia Last Oral Intake Last Oral intake: Last Oral Intake NPO since 21:00 12/13/24 06:30 Meds taken in AM with sips of No 12/13/24 06:30 water? Meds patient instructed to take am of surgery PONV PONV - volleyball player: PONV - volleyball player Female Yes 12/11/24 08:59 HX of Motion Sickness No 12/11/24 08:59 HX of N/V After Surgery No 12/11/24 08:59 Non-Smoker Yes 12/11/24 08:59 Duration of Surgery greater No 12/11/24 08:59 than 60 minutes Number of Risk Factors 2 12/11/24 08:59 PONV Score Moderate Risk 12/11/24 08:59 Height & Weight Height & Weight: Anesthesia: Height & Weight Height 4 ft 10 in 12/13/24 06:30 Weight: 83 kg 12/13/24 06:30 Body Mass Index (BMI) 38.2 12/13/24 06:30 Respiratory Assessment Respiratory Assessment - volleyball player: Respiratory Tract Infection Hx - volleyball player Hx Respiratory Tract Infection No 12/11/24 08:59 STOP Sleep Apnea STOP Sleep Apnea - volleyball player: STOP Sleep Apnea - volleyball player Hx Hypertension Yes: NO MEDS PRESENTLY 12/11/24 08:59 Hx Sleep Apnea No 12/11/24 08:59 CPAP BIPAP Do you snore loudly (louder No 12/11/24 08:59 than talking or can be heard Do you often feel tired/ No 12/11/24 08:59 fatigued/ sleepy during daytime? Has anyone observed you stop No 12/11/24 08:59 breathing during sleep? STOP Results Negative 12/11/24 08:59 QUESTION #5 FULL TEXT : Do you snore loudly (louder than talking or can be heard through closed doors)? Tobacco Use History Tobacco Use History - volleyball player: Tobacco Use History - volleyball player Tobacco Use Smoking Status Never smoker 12/11/24 08:59 Hx Tobacco Use No 12/11/24 08:59 Years Smoking Packs Smoked per Day Smoking Cessation Date was within the last 15 years Hx Smoking Cessation Date Hx Smoking Cessation Counseling Hematologic Medial History Hematologic Hx - volleyball player: Hematologic Medical Hx - manager talent Hx of Blood Transfusion No 12/11/24 08:59 Hx of Transfusion in last 3 No 12/11/24 08:59 Months Date of Last Transfusion (if within last 3 months) Ever experience any problems No 12/11/24 08:59 with transfusion(s)? Specify any problems Hx of Preganancy in last 3 No 12/11/24 08:59 Months Nurse Filling Out Transfusion VCHRISTIN 12/11/24 08:59 & Questions: Date: 12/11/24 12/11/24 08:59 Time: 09:01 12/11/24 08:59 Patient unable to answer at this time (ie. confused, unrespo /Reproduction History /Reproductive History - volleyball player: /Reproductive Hx- volleyball player Hx Now No 12/11/24 08:59 Gestational Age (in weeks): EDC: Hx Hx Para Hx Section SAB No 12/11/24 08:59 Active Medications Active Medications: Current Medications Generic Name Dose Route Start Last Admin Trade Name Freq PRN Reason Stop Dose Admin Lactated Ringer's 1,000 mls @ 15 mls/hr 12/13/24 06:15 12/13/24 06:30 IV 15 mls/hr .Q48H DEISY Administration PFSH Medical History Wears hearing aid Post-menopausal Cancer Rash Arthritis Easy bruising High cholesterol History of leukemia Back pain Injury of back Injury of head and neck Difficulty swallowing Non-smoker History of pain when walking History of edema Cardiology follow-up encounter Hypogammaglobulinemia Hypertension Diabetes mellitus Home Medications ?Medication ?Instructions ?Recorded ?Last Taken ?Type Aspir-Low 81 mg PO DAILY 07/01/16 Unknown History Calcium Carb/Vitamin D 2 tab PO DAILY 07/01/16 Unknown History furosemide 20 mg tablet 20 mg PO DAILY 07/01/16 Unknown History atorvastatin 10 mg tablet 10 mg PO DAILY 08/04/22 Unknown History potassium chloride 20 mEq 20 meq PO BID 08/04/22 Unknown History tablet,extended release(part/cryst) omeprazole 20 mg capsule,delayed 20 mg PO BID #60 caps 11/13/24 Unknown Rx release biotin 5 mg tablet 5 mg PO DAILY 12/11/24 Unknown History denosumab 60 mg/mL subcutaneous 60 mg subcut .QEVERY 6 MONTHS 12/11/24 Unknown History syringe (Prolia) meclizine 25 mg tablet 25 mg PO BID PRN PRN motion 12/11/24 Unknown History sickness turmeric 400 mg capsule 400 mg PO DAILY 12/11/24 Unknown History Allergy/AdvReac Type Severity Reaction Status Date / Time Penicillins (PCN) AdvReac Intermediate Pain in Verified 12/13/24 06:06 joints Family History Mother Hypertension Heart disease Father Heart disease Diabetes Surgical History History of cardiac catheterization History of pituitary surgery History of back surgery History of bilateral knee replacement Social History Smoking Status: Never smoker Review of Systems (Anesthesia) ROS Narrative System reviewed and no additional complaints, except as documented.
--- NOTE | 2024-12-13 07:00 | EGD_PTH ---
PATIENT: ANGELES NOGUERA LOC: [facility] U#:[id number] AGE/SX: 89/F ROOM: RE12/13/[address]: Dr. Oscar Crawford DO : 1935 BED: DIS: 12/13/2024 SPEC #: [id number] RECD: 12/13/24 09:36 STATUS: LEON RELima #: [id number] RIC: 12/13/24 07:[address]: Oscar Crawford DEPT: SURGICAL PATHOLOGY RECD BY: Ari Huerta ENTERED: 12/13/24 13:32 SP TYPE: EGD BIOPSY OT DR: Lenora Polanco, PRINTING SIGN MACHINE OPERATOR-C Tissues: A - Esophagus, NOS Procedures: Surgery Specimen Level IV HEADER OPERATION: EGD with biopsies and dilation PRE-OP DIAGNOSIS: Difficulty swallowing TISSUE SUBMITTED: A- Random esophagus biopsy MICROSCOPIC DIAGNOSIS A. Esophagus, random, biopsy: - Squamous mucosa negative for eosinophils. MICROSCOPIC DESCRIPTION Slides are reviewed. GROSS DESCRIPTION A. Received in fixative is one container labeled with the patient's name and designated Random esophagus biopsy. The specimen consists of two irregular fragments of light malhotra soft tissue that measure 0.3 and 0.4 cm. The specimen is totally submitted in one cassette. SD 12/13/2024 CPT:30272
--- NOTE | 2024-12-13 07:22 | OP.PROVAT_ITS ---
12/13/2024 Lenora Polanco Re : Upper GI endoscopy procedure for Lori Augspurger Dear Sherri This procedure was performed on Friday, December 13, 2024. My impressions and recommendations are as follows: Impressions : - Abnormal esophageal motility. Dilated. - No gross lesions in the entire stomach. - No gross lesions in the entire examined duodenum. - Biopsies were taken with a cold forceps for evaluation of eosinophilic esophagitis. Recommendations : - Discharge patient to home. - Resume previous diet. - Continue present medications. My findings are described in the full procedure note, which is enclosed. If I can be of further assistance, please feel free to contact me at . Sincerely, Oscar Crawford, 12/13/2024 7:21:47 AM This report has been signed electronically.
--- NOTE | 2024-12-13 07:22 | OP.EGD_ITS ---
Patient Name: Lori Chen Procedure Date: 12/13/2024 7:04 AM Date of : 1935 Age: 89 Procedure: Upper GI endoscopy Indications: Dysphagia Providers: Oscar Crawford DO Referring MD: Lenora Polanco Medicines: Monitored Anesthesia Care Patient Profile: This is an 89 year old female. Refer to note in patient chart for documentation of history and physical. Patient has symptoms of dysphagia with both liquids and solids. Complications: No immediate complications. Procedure: Pre-Anesthesia Assessment: - Prior to the procedure, a History and Physical was performed, and patient medications and allergies were reviewed. The patient is competent. The risks and benefits of the procedure and the sedation options and risks were discussed with the patient. All questions were answered and informed consent was obtained. Patient identification and proposed procedure were verified by the physician in the pre-procedure area. Mental Status Examination: alert and oriented. Airway Examination: normal oropharyngeal airway and neck mobility. Respiratory Examination: clear to auscultation. CV Examination: normal. Prophylactic Antibiotics: The patient does not require prophylactic antibiotics. Prior Anticoagulants: The patient has taken no anticoagulant or antiplatelet agents except for NSAID medication. ASA Grade Assessment: II - A patient with mild systemic disease. After reviewing the risks and benefits, the patient was deemed in satisfactory condition to undergo the procedure. The anesthesia plan was to use monitored anesthesia care (MAC). Immediately prior to administration of medications, the patient was re-assessed for adequacy to receive sedatives. The heart rate, respiratory rate, oxygen saturations, blood pressure, adequacy of pulmonary ventilation, and response to care were monitored throughout the procedure. The physical status of the patient was re-assessed after the procedure. After obtaining informed consent, the endoscope was passed under direct vision. Throughout the procedure, the patient's blood pressure, pulse, and oxygen saturations were monitored continuously. The Endoscope was introduced through the mouth, and advanced to the second part of duodenum. The upper GI endoscopy was accomplished without difficulty. The patient tolerated the procedure well. Scope In: 7:14:09 AM Scope Out: 7:18:16 AM Total Procedure Duration Time 0 hours 4 minutes 7 seconds Findings: Abnormal motility was noted in the esophagus. The cricopharyngeus was abnormal. There are extra peristaltic waves in the esophageal body. The distal esophagus/lower esophageal sphincter is spastic, but gives up passage to the endoscope. Tertiary peristaltic waves are noted. Biopsies were obtained from the proximal and distal esophagus with cold forceps for histology of suspected eosinophilic esophagitis. A guidewire was placed and the scope was withdrawn. Dilation was performed with a Savary dilator with no resistance at 57 Fr. The dilation site was examined and showed moderate improvement in luminal narrowing. Estimated blood loss was minimal. No gross lesions were noted in the entire examined stomach. No gross lesions were noted in the entire examined duodenum. Impression: - Abnormal esophageal motility. Dilated. - No gross lesions in the entire stomach. - No gross lesions in the entire examined duodenum. - Biopsies were taken with a cold forceps for evaluation of eosinophilic esophagitis. Recommendation: - Discharge patient to home. - Resume previous diet. - Continue present medications. Procedure Code(s): --- Professional --- 27732, Esophagogastroduodenoscopy, flexible, transoral; with insertion of guide wire followed by passage of dilator(s) through esophagus over guide wire 17121, 59,51, Esophagogastroduodenoscopy, flexible, transoral; with biopsy, single or multiple CPT copyright 2021 [employer]. All rights reserved. The codes documented in this report are preliminary and upon spacecraft systems engineer review may be revised to meet current compliance requirements. Oscar Crawford DO 12/13/2024 7:21:47 AM This report has been signed electronically. Number of Addenda: 0 Note Initiated On: 12/13/2024 7:04 AM
--- NOTE | 2024-12-13 07:30 | PCM.POST.ANE ---
Anesthesia: Postop Eval I Current Vital Signs Temperature: 97.3 F Pulse Rate: 64 Blood Pressure: 114/66 Respiratory Rate: 16 Pulse Ox: 99 Oxygen Delivery Method: Room Air Assessment Airway patent: Yes Spontaneous unlabored respirations: Yes Mental status: Awake and Calm nausea: No Vomiting: No Anesthesia Complication: No Fluid Hydration Crystalloid volume administer (ml): 300 Total IV fluid infused: 300 Progress Note Anesthesia document: Postop Eval 1 completed: Yes
--- NOTE | 2024-12-13 09:38 | PCM.POSTANE2 ---
Anesthesia Postop Eval I Sum Postop Eval Completion status Anesthesia document: Postop Eval 1 completed: Yes Anesthesia Postop Eval I Summary Anesthesia Postop Eval I Summary: Anesthesia Postop Eval I: Assessment Summary Airway patent Yes 12/13/24 07:31 [email or web address] Spontaneous unlabored Yes 12/13/24 07:31 [email or web address] respirations Mental status Awake,Calm 12/13/24 07:31 [email or web address] nausea No 12/13/24 07:31 [email or web address] Vomiting No 12/13/24 07:31 [email or web address] Anesthesia Postop Eval I: Fluid Summary Crystalloid volume administer 300 12/13/24 07:31 [email or web address] (ml) Colloids volume administered ( ml) Blood Product volume administered (ml) Total IV fluid infused 300 12/13/24 07:31 [email or web address] Anesthesia Postop Eval I: Summary Notes Anesthesia Complication No 12/13/24 07:31 [email or web address] Anesthesia Complication Comment: Post-operative progress note Anesthesia: Postop Eval II Evaluation Mental status: Awake and Calm Pain Level: 1 nausea: No Vomiting: No Complications Anesthesia Complication: No
== END 2024-12-13 07:56 | disposition home or self-care (01) ==
LOC: EN 05:59 → AC 06:02
PROVIDERS: PCP Nurse Practitioner Primary Care; Referring Provider Nurse Practitioner Primary Care; Visit Provider Internal Medicine Gastroenterology
PROC: 0DJ08ZZ Inspection of Upper Intestinal Tract, Via Natural or Artificial Opening Endoscopic (ICD-10-PCS; CPT 43235; principal; 2024-12-13 06:55)
DX: K22.4 Dyskinesia of esophagus (principal); C91.10 Chronic lymphocytic leukemia of B-cell type not having achieved remission; E11.9 Type 2 diabetes mellitus without complications; I10 Essential (primary) hypertension; K44.9 Diaphragmatic hernia without obstruction or gangrene; E78.00 Pure hypercholesterolemia, unspecified; Z79.899 Other long term (current) drug therapy
CPT/HCPCS: 43248; 43239; 88305; C1769; J2405